=== PATIENT | male | born 1940 | race Caucasian/White ===

== ENCOUNTER 2016-04-05 14:31 | Inpatient (IN) ==
[2016-04-05] MEDS ORDERED: Ondansetron 4 MG/2 ML VIAL IVP ONE (14:47)
[2016-04-05] MEDS ORDERED: 0.9 % Sodium Chloride 1,000 ML IVC ONE (14:47)
[2016-04-05] MEDS ORDERED: *HR* HYDROmorphone (PF) 1 MG/ML SYRINGE IVP ONE (14:47)
[2016-04-05] MEDS ORDERED: Ipratropium/Albuterol Neb 3 ML IH ONE (14:48)
--- NOTE | 2016-04-05 14:58 | Emergency Department Note ---
Disposition Clinical Impression: Status post hernia repair, Inadequate pain control, Elevated troponin Disposition: Admitted As Inpatient Condition: Good General Adult HPI - General Chief complaint: ED Urogenital-Male Stated complaint: scrotal swelling Time Seen by Provider: 04/05/16 14:45 Source: patient, EMS Limitations: no limitations - History of Present Illness Pain Scale: 9 - Related Data Home Medications Medication Instructions Recorded Confirmed GlyBURIDE 5 mg PO BID 02/10/15 04/06/16 Isosorbide MONOnitrate (24 HR) 30 mg PO DAILY 02/10/15 04/06/16 [Imdur] Levothyroxine [Synthroid] 88 mcg PO DAILY 02/10/15 04/06/16 Docusate Sodium [Dok] 100 mg PO BID PRN 11/02/15 04/06/16 Insulin Glargine,Hum.rec.anlog 0 - 40 unit SQ HS PRN 11/02/15 04/06/16 [Lantus Solostar] Gabapentin [Neurontin] 300 mg PO TID PRN 01/21/16 04/06/16 Pravastatin Sodium 10 mg PO HS 01/21/16 04/06/16 Carvedilol 12.5 mg PO BID 03/31/16 04/06/16 Furosemide [Lasix] 20 mg PO QAM 03/31/16 04/06/16 OxyCODONE/APAP 5/325 [Percocet 1 tab PO Q6HR PRN 04/05/16 04/06/16 5/325 MG] Allergies Allergy/AdvReac Type Severity Reaction Status Date / Time [id number]-[id number]-Zsq Reductase AdvReac Muscle Pain Verified 03/31/16 12:55 Inhibitor [Statins] Past Medical History - Past Medical History Medical history: Reports: atrial fibrillation, cancer, CHF, CVA, diabetes, hyperlipidemia, hypertension, myocardial infarction, renal disease, other Surgical history: Reports: coronary bypass (CABG), other, pacemaker Psychiatric history: Reports: no psych history - Social History Smoking Status: Former smoker Smokeless Tobacco Status: No Alcohol use: Reports: none Drug use: Reports: none Physical Exam - General Limitations: no limitations General appearance: alert Course - Reevaluation(s) Reevaluation #1: I saw the patient with resident, Dr. Dominique. Patient presented with a complaint of scrotal swelling. He is several days post laparoscopic herniorrhaphy. He says he started feeling bad as soon as he went home night. On examination his incisions look fine but there is a lot of ecchymosis on the abdominal wall. There is significant ecchymosis to the right flank extending up into the lower thorax. Scrotum is definitely swollen and has ecchymosis to it. The patient has a Luna catheter in place and there is urine draining into the bag. His belly is tender on the right side where the hematoma is but he is not tender to deep palpation of the abdomen on the left hand side. Afebrile on arrival. This may be postoperative hematoma and nothing more. However will have to Be concerned about ongoing bleeding or a more significant type of hematoma in the retroperitoneum. We are checking labs and we will do a CAT scan of the belly and pelvis. Disposition will be based on diagnostic results and reevaluation. Time: 14:58 Vital Signs Temperature 97.7 F 04/05/16 14:34 Pulse Rate 60 04/05/16 14:34 Respiratory Rate 16 04/05/16 14:34 Blood Pressure 136/67 04/05/16 14:34 O2 Sat by Pulse Oximetry 100 04/05/16 14:34 Temperature 98.4 F 04/06/16 07:34 Pulse Rate 60 04/06/16 11:27 Respiratory Rate 18 04/06/16 11:27 Blood Pressure 108/56 04/06/16 11:27 O2 Sat by Pulse Oximetry 100 04/06/16 07:34 Oxygen Delivery Oxygen Delivery Nasal Cannula Medical Decision Making - Lab Data Result diagrams: 04/06/16 05:33 04/06/16 05:33 Lab Results 04/05/16 04/05/16 04/05/16 Range/Units 15:02 15:02 15:02 WBC 6.3 (4.3-11.1) K/mcL RBC 3.41 L (4.19-5.50) M/mcL Hgb 9.5 L (12.9-16.9) g/dL Hct 29.2 L (37.5-50.1) % MCV 85.6 (83.0-100.0) fL MCH 27.9 L (28.0-33.3) pg MCHC 32.5 (31.6-35.5) g/dL RDW 13.2 (11.5-14.5) % Plt Count 109 L (140-400) K/mcL MPV 8.9 L (9.4-12.4) fL Immature Gran % 1.1 (0-4) % Seg Neutrophils % 75.7 % Lymphocytes % 10.5 % Monocytes % 9.7 % Eosinophils % 2.5 % Basophils % 0.5 % Neutrophils # 4.8 (1.6-8.9) K/mcL Lymphocytes # 0.7 (0.6-4.6) K/mcL Monocytes # 0.6 (0.0-1.3) K/mcL Eosinophils # 0.2 (0.0-0.6) K/mcL Basophils # 0.0 (0.0-0.2) K/mcL Immature Plt Fraction 1.0 L (1.1-6.1) % PT (9.4-12.1) Seconds INR APTT (26.0-36.0) Seconds Sodium 133 L (136-145) mEq/L Potassium 3.6 (3.5-4.5) mEq/L Chloride 102 (98-109) mEq/L Carbon Dioxide 14 L (19-29) mEq/L BUN 99 H (8-26) mg/dL Creatinine 2.62 H (0.72-1.25) mg/dL Est GFR ( Amer) 29 L (> 60) Est GFR (Non-Af Amer) 24 L (> 60) BUN/Creatinine Ratio 38 H (6-26) Glucose 91 (70-99) mg/dL POC Glucose (58-89) Calculated Osmolality 306 H (280-300) Calcium 8.5 L (8.6-10.8) mg/dL Total Bilirubin 2.0 H (0.2-1.2) mg/dL Direct Bilirubin 1.1 H (0.0-0.5) mg/dL Indirect Bilirubin 0.9 (0.0-1.2) mg/dL AST 20 (5-34) Units/L ALT < 6 (0-55) Units/L Alkaline Phosphatase 160 H (38-126) Units/L Troponin I 0.11 H* (0-0.03) ng/mL Serum Total Protein 6.5 (6.0-8.3) g/dL Albumin 3.3 L (3.5-5.0) g/dL Globulin 3.2 (2.4-3.5) g/dL Albumin/Globulin Ratio 1.0 L (1.1-2.2) Lipase 27 (8-78) Units/L Urine Color (Yellow) Urine Clarity (Clear) Urine pH (5.0-8.0) pH Units Ur Specific [place] (1.010-1.025) Urine Protein (Neg-Trace) mg/dL Urine Glucose (UA) (Normal) mg/dL Urine Ketones (Negative) mg/dL Urine Blood (Negative) Urine Nitrite (Negative) Urine Bilirubin (Negative) Urine Urobilinogen (Normal) mg/dL Ur Leukocyte Esterase (Negative) Urine Microscopic RBC (0-3) per hpf Urine Microscopic WBC (0-3) per hpf Ur Squamous Epith Cells (None-Few) per lpf Amorphous Sediment (Few) Urine Bacteria (None-Few) per hpf Hyaline Casts (None-Few) per lpf Granular Casts (None Seen) per lpf Urine Yeast Ur Culture Indicated? (NO) 04/05/16 04/05/16 04/06/16 Range/Units 20:52 22:13 05:13 WBC (4.3-11.1) K/mcL RBC (4.19-5.50) M/mcL Hgb (12.9-16.9) g/dL Hct (37.5-50.1) % MCV (83.0-100.0) fL MCH (28.0-33.3) pg MCHC (31.6-35.5) g/dL RDW (11.5-14.5) % Plt Count (140-400) K/mcL MPV (9.4-12.4) fL Immature Gran % (0-4) % Seg Neutrophils % % Lymphocytes % % Monocytes % % Eosinophils % % Basophils % % Neutrophils # (1.6-8.9) K/mcL Lymphocytes # (0.6-4.6) K/mcL Monocytes # (0.0-1.3) K/mcL Eosinophils # (0.0-0.6) K/mcL Basophils # (0.0-0.2) K/mcL Immature Plt Fraction (1.1-6.1) % PT (9.4-12.1) Seconds INR APTT (26.0-36.0) Seconds Sodium (136-145) mEq/L Potassium (3.5-4.5) mEq/L Chloride (98-109) mEq/L Carbon Dioxide (19-29) mEq/L BUN (8-26) mg/dL Creatinine (0.72-1.25) mg/dL Est GFR ( Amer) (> 60) Est GFR (Non-Af Amer) (> 60) BUN/Creatinine Ratio (6-26) Glucose (70-99) mg/dL POC Glucose 100 H 73 (58-89) Calculated Osmolality (280-300) Calcium (8.6-10.8) mg/dL Total Bilirubin (0.2-1.2) mg/dL Direct Bilirubin (0.0-0.5) mg/dL Indirect Bilirubin (0.0-1.2) mg/dL AST (5-34) Units/L ALT (0-55) Units/L Alkaline Phosphatase (38-126) Units/L Troponin I 0.13 H* (0-0.03) ng/mL Serum Total Protein (6.0-8.3) g/dL Albumin (3.5-5.0) g/dL Globulin (2.4-3.5) g/dL Albumin/Globulin Ratio (1.1-2.2) Lipase (8-78) Units/L Urine Color (Yellow) Urine Clarity (Clear) Urine pH (5.0-8.0) pH Units Ur Specific [place] (1.010-1.025) Urine Protein (Neg-Trace) mg/dL Urine Glucose (UA) (Normal) mg/dL Urine Ketones (Negative) mg/dL Urine Blood (Negative) Urine Nitrite (Negative) Urine Bilirubin (Negative) Urine Urobilinogen (Normal) mg/dL Ur Leukocyte Esterase (Negative) Urine Microscopic RBC (0-3) per hpf Urine Microscopic WBC (0-3) per hpf Ur Squamous Epith Cells (None-Few) per lpf Amorphous Sediment (Few) Urine Bacteria (None-Few) per hpf Hyaline Casts (None-Few) per lpf Granular Casts (None Seen) per lpf Urine Yeast Ur Culture Indicated? (NO) 04/06/16 04/06/16 04/06/16 Range/Units 05:20 05:33 05:33 WBC 4.2 L (4.3-11.1) K/mcL RBC 2.93 L (4.19-5.50) M/mcL Hgb 8.2 L (12.9-16.9) g/dL Hct 25.7 L (37.5-50.1) % MCV 87.7 (83.0-100.0) fL MCH 28.0 (28.0-33.3) pg MCHC 31.9 (31.6-35.5) g/dL RDW 13.2 (11.5-14.5) % Plt Count 95 L (140-400) K/mcL MPV 8.8 L (9.4-12.4) fL Immature Gran % 0.7 (0-4) % Seg Neutrophils % 70.5 % Lymphocytes % 12.9 % Monocytes % 10.6 % Eosinophils % 4.8 % Basophils % 0.5 % Neutrophils # 3.0 (1.6-8.9) K/mcL Lymphocytes # 0.5 L (0.6-4.6) K/mcL Monocytes # 0.5 (0.0-1.3) K/mcL Eosinophils # 0.2 (0.0-0.6) K/mcL Basophils # 0.0 (0.0-0.2) K/mcL Immature Plt Fraction 0.8 L (1.1-6.1) % PT (9.4-12.1) Seconds INR APTT (26.0-36.0) Seconds Sodium (136-145) mEq/L Potassium (3.5-4.5) mEq/L Chloride (98-109) mEq/L Carbon Dioxide (19-29) mEq/L BUN (8-26) mg/dL Creatinine (0.72-1.25) mg/dL Est GFR ( Amer) (> 60) Est GFR (Non-Af Amer) (> 60) BUN/Creatinine Ratio (6-26) Glucose (70-99) mg/dL POC Glucose (58-89) Calculated Osmolality (280-300) Calcium (8.6-10.8) mg/dL Total Bilirubin (0.2-1.2) mg/dL Direct Bilirubin (0.0-0.5) mg/dL Indirect Bilirubin (0.0-1.2) mg/dL AST (5-34) Units/L ALT (0-55) Units/L Alkaline Phosphatase (38-126) Units/L Troponin I 0.14 H* (0-0.03) ng/mL Serum Total Protein (6.0-8.3) g/dL Albumin (3.5-5.0) g/dL Globulin (2.4-3.5) g/dL Albumin/Globulin Ratio (1.1-2.2) Lipase (8-78) Units/L Urine Color Yellow (Yellow) Urine Clarity Cloudy A (Clear) Urine pH 5.0 (5.0-8.0) pH Units Ur Specific [place] 1.013 (1.010-1.025) Urine Protein Trace (Neg-Trace) mg/dL Urine Glucose (UA) Normal (Normal) mg/dL Urine Ketones Negative (Negative) mg/dL Urine Blood Trace H (Negative) Urine Nitrite Negative (Negative) Urine Bilirubin Negative (Negative) Urine Urobilinogen Normal (Normal) mg/dL Ur Leukocyte Esterase Negative (Negative) Urine Microscopic RBC 0-3 (0-3) per hpf Urine Microscopic WBC 0-3 (0-3) per hpf Ur Squamous Epith Cells Many H (None-Few) per lpf Amorphous Sediment Few (Few) Urine Bacteria Few (None-Few) per hpf Hyaline Casts Few (None-Few) per lpf Granular Casts Few H (None Seen) per lpf Urine Yeast Test Not Performed Ur Culture Indicated? NO (NO) 04/06/16 04/06/16 Range/Units 05:33 05:33 WBC (4.3-11.1) K/mcL RBC (4.19-5.50) M/mcL Hgb (12.9-16.9) g/dL Hct (37.5-50.1) % MCV (83.0-100.0) fL MCH (28.0-33.3) pg MCHC (31.6-35.5) g/dL RDW (11.5-14.5) % Plt Count (140-400) K/mcL MPV (9.4-12.4) fL Immature Gran % (0-4) % Seg Neutrophils % % Lymphocytes % % Monocytes % % Eosinophils % % Basophils % % Neutrophils # (1.6-8.9) K/mcL Lymphocytes # (0.6-4.6) K/mcL Monocytes # (0.0-1.3) K/mcL Eosinophils # (0.0-0.6) K/mcL Basophils # (0.0-0.2) K/mcL Immature Plt Fraction (1.1-6.1) % PT 15.1 H (9.4-12.1) Seconds INR 1.4 APTT 27.4 (26.0-36.0) Seconds Sodium 135 L (136-145) mEq/L Potassium 3.5 (3.5-4.5) mEq/L Chloride 107 (98-109) mEq/L Carbon Dioxide 15 L (19-29) mEq/L BUN 96 H (8-26) mg/dL Creatinine 2.32 H (0.72-1.25) mg/dL Est GFR ( Amer) 34 L (> 60) Est GFR (Non-Af Amer) 28 L (> 60) BUN/Creatinine Ratio 41 H (6-26) Glucose 69 L (70-99) mg/dL POC Glucose (58-89) Calculated Osmolality 308 H (280-300) Calcium 8.5 L (8.6-10.8) mg/dL Total Bilirubin (0.2-1.2) mg/dL Direct Bilirubin (0.0-0.5) mg/dL Indirect Bilirubin (0.0-1.2) mg/dL AST (5-34) Units/L ALT (0-55) Units/L Alkaline Phosphatase (38-126) Units/L Troponin I (0-0.03) ng/mL Serum Total Protein (6.0-8.3) g/dL Albumin (3.5-5.0) g/dL Globulin (2.4-3.5) g/dL Albumin/Globulin Ratio (1.1-2.2) Lipase (8-78) Units/L Urine Color (Yellow) Urine Clarity (Clear) Urine pH (5.0-8.0) pH Units Ur Specific [place] (1.010-1.025) Urine Protein (Neg-Trace) mg/dL Urine Glucose (UA) (Normal) mg/dL Urine Ketones (Negative) mg/dL Urine Blood (Negative) Urine Nitrite (Negative) Urine Bilirubin (Negative) Urine Urobilinogen (Normal) mg/dL Ur Leukocyte Esterase (Negative) Urine Microscopic RBC (0-3) per hpf Urine Microscopic WBC (0-3) per hpf Ur Squamous Epith Cells (None-Few) per lpf Amorphous Sediment (Few) Urine Bacteria (None-Few) per hpf Hyaline Casts (None-Few) per lpf Granular Casts (None Seen) per lpf Urine Yeast Ur Culture Indicated? (NO) Attestation Statement - Attestation Attestation: I, Dr. Lee, examined this patient [id number] and my medical decision- making was reviewed with Dr. Dominique, Resident Physician. I agree with the documented findings, disposition and treatment plan as described except to the extent set forth below. Please see my progress notes for details.
[2016-04-05 15:12] LABS: Basophils % 0.5 %; Hematocrit 29.2 % (37.5-50.1)
[2016-04-05 15:13] LABS: Eosinophils # 0.2 K/mcL (0.0-0.6); Eosinophils % 2.5 %; Hemoglobin 9.5 g/dL (12.9-16.9); Immature Granulocytes % 1.1 % (0-4); Lymphocytes # 0.7 K/mcL (0.6-4.6); Lymphocytes % 10.5 %; Mean Corpuscular HGB Conc 32.5 g/dL (31.6-35.5); Mean Corpuscular Hemoglobin 27.9 pg (28.0-33.3); Mean Corpuscular Volume 85.6 fL (83.0-100.0); Mean Platelet Volume 8.9 fL (9.4-12.4); Monocytes # 0.6 K/mcL (0.0-1.3); Monocytes % 9.7 %; Neutrophils # 4.8 K/mcL (1.6-8.9); Platelet Count 109 K/mcL (140-400); Red Blood Count 3.41 M/mcL (4.19-5.50); Red Cell Distribution Width 13.2 % (11.5-14.5); Segmented Neutrophils % 75.7 %
[2016-04-05 15:27] LABS: Albumin 3.3 g/dL (3.5-5.0); Alkaline Phosphatase 160 Units/L (38-126); Aspartate Amino Transferase 20 Units/L (5-34); BUN/Creatinine Ratio 38 (6-26); Bilirubin,Direct 1.1 mg/dL (0.0-0.5); Bilirubin,Indirect 0.9 mg/dL (0.0-1.2); Blood Urea Nitrogen 99 mg/dL (8-26); Calcium 8.5 mg/dL (8.6-10.8); Carbon Dioxide 14 mEq/L (19-29); Chloride 102 mEq/L (98-109); Globulin 3.2 g/dL (2.4-3.5); Glucose 91 mg/dL (70-99); Lipase 27 Units/L (8-78); Osmolality,Calculated 306 (280-300); Potassium 3.6 mEq/L (3.5-4.5); Sodium 133 mEq/L (136-145); Total Protein 6.5 g/dL (6.0-8.3); eGFR For African Americans 29 (> 60); eGFR For Non-African Americans 24 (> 60)
[2016-04-05 15:39] LABS: Alanine Aminotransferase < 6 Units/L (0-55)
--- NOTE | 2016-04-05 17:25 | Emergency Department Note ---
Disposition Clinical Impression: Status post hernia repair, Inadequate pain control, Elevated troponin Disposition: Admitted As Inpatient Condition: Good Forms: ED Satisfaction Letter General Adult HPI - General Chief complaint: ED Urogenital-Male Stated complaint: scrotal swelling Time Seen by Provider: 04/05/16 14:45 Source: patient, EMS Limitations: no limitations Nursing Notes Reviewed: Yes Vital Signs Reviewed: Yes - History of Present Illness HPI Narrative: Patient here for evaluation of abdominal pain which developed into chest pain upon arrival. Patient is postop from hernia repair done by Dr. Williamson on . Patient was discharged later in the day. Patient has been at home recovering with his helping to take care of him. Patient has had continued swelling of the abdomen and scrotum. Associated ecchymosis. States today the pain got so severe that she needed to come to the hospital. Upon arrival the patient is in significant pain with significant tenderness of the abdomen as well as ecchymosis along the entire right flank. Patient's overall history is limited secondary to ability to communicate secondary to age. Patient with mild wheezing at the left base of the lung. Abdomen with appropriate hearing scars significant ecchymosis to the right flank. No overt sign of infection. Scrotal swelling noted with tenderness to palpation. Pt will recieve blood work and CT scan to evaluate for bleeding and infection. Pain Scale: 0 - Related Data Home Medications Medication Instructions Recorded Confirmed GlyBURIDE 5 mg PO BID 02/10/15 03/31/16 Isosorbide MONOnitrate (24 HR) 30 mg PO DAILY 02/10/15 03/31/16 [Imdur] Levothyroxine [Synthroid] 88 mcg PO DAILY 02/10/15 03/31/16 Docusate Sodium [Dok] 100 mg PO BID PRN 11/02/15 03/31/16 Insulin Glargine,Hum.rec.anlog 40 unit SQ HS 11/02/15 03/31/16 [Lantus Solostar] Gabapentin [Neurontin] 300 mg PO TID PRN 01/21/16 03/31/16 Pravastatin Sodium 10 mg PO HS 01/21/16 03/31/16 Carvedilol 12.5 mg PO BID 03/31/16 03/31/16 Furosemide [Lasix] 20 mg PO QAM 03/31/16 03/31/16 Previous Rx's Medication Instructions Recorded OxyCODONE/APAP 5/325 [Percocet 1 each PO Q6HR PRN #30 tablet 03/31/16 5/325 MG] Allergies Allergy/AdvReac Type Severity Reaction Status Date / Time [id number] Reductase AdvReac Muscle Pain Verified 03/31/16 12:55 Inhibitor [Statins] All systems ED: reviewed and negative except as stated. Constitutional: Denies: fever, chills Cardiovascular: Reports: chest pain Respiratory: Denies: cough, dyspnea, wheezes Gastrointestinal: Reports: abdominal pain, nausea. Denies: vomiting, diarrhea Genitourinary: Denies: urgency Integumentary: Denies: rash Neurological: Denies: headache Endocrine: Denies: fatigue Past Medical History - Past Medical History Medical history: Reports: atrial fibrillation, cancer, CHF, CVA, diabetes, hyperlipidemia, hypertension, myocardial infarction, renal disease, other Surgical history: Reports: coronary bypass (CABG), other, pacemaker Psychiatric history: Reports: no psych history - Social History Smoking Status: Former smoker Smokeless Tobacco Status: No Alcohol use: Reports: none Drug use: Reports: none Physical Exam - General Limitations: no limitations General appearance: alert - Head Head exam: atraumatic, normocephalic - Eye Eye exam: Present: normal appearance - ENT ENT exam: normal exam, normal oropharynx - Neck Neck exam: Present: normal inspection, full ROM - Chest Chest inspection: Present: normal inspection, symmetric chest wall rise. Absent : tenderness - Respiratory Respiratory exam: Present: normal lung sounds bilaterally, wheezes (left lung base). Absent: respiratory distress - Cardiovascular Cardiovascular exam: Present: regular rate, normal rhythm - Abdominal Exam Abdominal exam: Present: tenderness Abdominal tenderness: Present: diffuse (worse on the right) - Male exam: Present: scrotal swelling, other (ecchymosis) - Extremities Exam Extremities exam: Present: normal inspection, pedal edema Course - Reevaluation(s) Reevaluation #1: Pt with concern for abcess vs phlegmon vs normal healing; will discuss with surgery. CKD chronically elevated. Elevated troponin 2x baseline. Will need to be trended. - Consultations Consultation #1: Discussed with Dr. Williamson. In light of normal WBC, unlikely infection. Will see patient in hospital in am if admitted for troponin. Consultation #2: Discussed with Cassie Carr. Pt Accepted for admission. Vital Signs Temperature 97.7 F 04/05/16 14:34 Pulse Rate 60 04/05/16 14:34 Respiratory Rate 16 04/05/16 14:34 Blood Pressure 136/67 04/05/16 14:34 O2 Sat by Pulse Oximetry 100 04/05/16 14:34 Temperature 97.7 F 04/05/16 14:34 Pulse Rate 60 04/05/16 16:46 Respiratory Rate 18 04/05/16 16:46 Blood Pressure 123/67 04/05/16 16:46 O2 Sat by Pulse Oximetry 100 04/05/16 16:46 Oxygen Delivery Oxygen Delivery Nasal Cannula Medical Decision Making - Medical Records Medical records reviewed: Yes I reviewed the patient's medical records. - Lab Data Lab results reviewed: Yes I reviewed the patient's lab results. Result diagrams: 04/05/16 15:02 04/05/16 15:02 Lab Results 04/05/16 04/05/16 04/05/16 Range/Units 15:02 15:02 15:02 WBC 6.3 (4.3-11.1) K/mcL RBC 3.41 L (4.19-5.50) M/mcL Hgb 9.5 L (12.9-16.9) g/dL Hct 29.2 L (37.5-50.1) % MCV 85.6 (83.0-100.0) fL MCH 27.9 L (28.0-33.3) pg MCHC 32.5 (31.6-35.5) g/dL RDW 13.2 (11.5-14.5) % Plt Count 109 L (140-400) K/mcL MPV 8.9 L (9.4-12.4) fL Immature Gran % 1.1 (0-4) % Seg Neutrophils % 75.7 % Lymphocytes % 10.5 % Monocytes % 9.7 % Eosinophils % 2.5 % Basophils % 0.5 % Neutrophils # 4.8 (1.6-8.9) K/mcL Lymphocytes # 0.7 (0.6-4.6) K/mcL Monocytes # 0.6 (0.0-1.3) K/mcL Eosinophils # 0.2 (0.0-0.6) K/mcL Basophils # 0.0 (0.0-0.2) K/mcL Immature Plt Fraction 1.0 L (1.1-6.1) % Sodium 133 L (136-145) mEq/L Potassium 3.6 (3.5-4.5) mEq/L Chloride 102 (98-109) mEq/L Carbon Dioxide 14 L (19-29) mEq/L BUN 99 H (8-26) mg/dL Creatinine 2.62 H (0.72-1.25) mg/dL Est GFR ( Amer) 29 L (> 60) Est GFR (Non-Af Amer) 24 L (> 60) BUN/Creatinine Ratio 38 H (6-26) Glucose 91 (70-99) mg/dL Calculated Osmolality 306 H (280-300) Calcium 8.5 L (8.6-10.8) mg/dL Total Bilirubin 2.0 H (0.2-1.2) mg/dL Direct Bilirubin 1.1 H (0.0-0.5) mg/dL Indirect Bilirubin 0.9 (0.0-1.2) mg/dL AST 20 (5-34) Units/L ALT < 6 (0-55) Units/L Alkaline Phosphatase 160 H (38-126) Units/L Troponin I 0.11 H* (0-0.03) ng/mL Serum Total Protein 6.5 (6.0-8.3) g/dL Albumin 3.3 L (3.5-5.0) g/dL Globulin 3.2 (2.4-3.5) g/dL Albumin/Globulin Ratio 1.0 L (1.1-2.2) Lipase 27 (8-78) Units/L - Radiology Data Radiology results reviewed: Yes I reviewed the patient's radiology results. - EKG Data EKG #1 EKG attestation: Yes I reviewed and interpreted this EKG. EKG results narrative: Ventricularly paced rhythm 60 bmp; unchanged form 10/2015; Does not meet S[place] criteria. No significant elevation or depression.
[2016-04-05] MEDS ORDERED: Aspirin 81 MG TAB.CHEW PO ONE (17:32)
[2016-04-05] MEDS ORDERED: Naloxone 0.4 MG/ML INJ IVP PRN (21:07)
[2016-04-05] MEDS ORDERED: *HR* HYDROmorphone (PF) 1 MG/ML SYRINGE IVP PRN (21:07)
[2016-04-05] MEDS ORDERED: *HR* HYDROcodone/Acet 5/325 mg TABLET PO ONE (21:11)
[2016-04-05] MEDS ORDERED: *HR* Morphine 2 MG/ML SYRINGE IVP ONE (21:53)
[2016-04-05] MEDS ORDERED: *HR* Dextrose 50 % in Water (Syg) 50 ML SYRINGE IVP PRN (22:05)
[2016-04-05] MEDS ORDERED: D5% in Water 1,000 ML IV PRN (22:05)
[2016-04-05] MEDS ORDERED: Dextrose Gel 15 GM PO PRN ×2 (22:05)
--- NOTE | 2016-04-05 22:14 | Internal Med History&Physical ---
Date of Encounter: 04/05/16 Time of Encounter: 22:18 Assessment and Plan (1) Elevated troponin Current visit: Yes Status: Acute Patient has chronically elevated troponin baseline about 0.05. He reported some chest pain in the emergency department that is now resolved. Troponin was 0.11, up from his baseline is 0.05. EKG showed no acute changes. 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 IVP Dilaudid when necessary for pain Narcan when necessary for respiratory depression (3) Status post hernia repair Current visit: Yes Status: Acute Patient had a right inguinal hernia repair by Dr. Gibson on . He is having increased swelling and pain in scrotum pelvis ecchymosis to his right flank. CT scan of the abdomen and pelvis showed soft tissue gas in the right inguinal region and adjacent subcutaneous fat stranding compatible with given history of recent right inguinal hernia repair, additionally there is a 6.9 X 6.3 x 5.9 cm heterogeneous collection in the right anterior pelvis near the opening of the inguinal canal that contains both fluid and fat density. Dr. Gibson was contacted by the emergency department and does not feel that this is an infection given patient's normal white count of 6.3. He will see the patient in the morning. Ultrasound of the scrotum ordered. 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 Patient's surgeon, Dr. Williamson consulted, and will see the patient in the morning. Elevate scrotum. Morphine IV push when necessary for pain. Ultrasound of scrotum ordered (6) Chronic kidney disease Current visit: Yes Status: Acute Patient with CKD, creatinine is at baseline of 2.62, BUN elevated. Will give gentle fluids 0.9NS at 75mL/hr recheck chemistry in the morning. Qualifiers: Chronic kidney disease stage: stage 4 (severe) Qualified Code(s): N18.4 - Chronic kidney disease, stage 4 (severe) (7) DVT prophylaxis Current visit: Yes Status: Acute Up to chair twice a day Antiembolic stockings Patient with thrombocytopenia with Plt of 109, will not give pharmacologic prophylaxis. Internal Medicine - H&P: HPI Chief complaint: surgical pain, chest pain Admitted From: Emergency Dept Plans for Post Hospital Care: Home History of present illness: Mr. Frye is a 75 year old male with hypertension, hyperlipidemia, diabetes, CHF, coronary artery disease status post CABG, atrial fibrillation, pacemaker/ AICD, chronic kidney disease, CHF, who recently had a right inguinal hernia repair by Dr. Williamson and presented to the emergency department for increased swelling and bruising and pain in the scrotum and abdomen. Patient's surgery was on and was done as an outpatient. Since his surgery he has had increasing swelling of the scrotum increasing swelling of the lower abdomen and bruising in the scrotum and right flank. His pain is uncontrolled. He reports he has been passing gas and having regular bowel movements, however he has not had an appetite and not eaten much since the surgery. Evaluation in the emergency department included a CT of the abdomen and pelvis which showed soft tissue gas in the right inguinal region and adjacent subcutaneous fat stranding consistent with history of right inguinal hernia repair, additionally there is a 6.9 X 6.3 x 5.9 cm heterogeneous collection in the right anterior pelvis near the opening of the inguinal canal that contains both fluid and fat density. CT also demonstrated cirrhosis with portal hypertension and a small volume of abdominal ascites. Dr. Williamson was called by the emergency department physician he is not concern for abscess given the patient's normal white blood cell count and will see the patient tomorrow. Patient's creatinine was 2.62 which is consistent with his baseline chronic kidney disease. Patient's troponin was elevated at 0.11. He has chronically elevated troponin, but this is up from his baseline of 0.05. On exam, patient appears uncomfortable, he is alert and oriented, and answers questions appropriately. His abdomen is soft, but tender. He has laparoscopic surgical scars that appear to be healing appropriately. He has significant ecchymosis all along his right flank from hip to shoulder blade. He is tender to the right flank. His scrotum is severely swollen, dark purple in color and very tender to palpation. Past Med Surg Social Fam HX - Past Medical History Medical history: atrial fibrillation, cancer, CHF, CVA, diabetes, hyperlipidemia , hypertension, myocardial infarction, renal disease Psychiatric history: no psych history - Past Surgical History Surgical History: cancer surgery, coronary bypass (CABG), pacemaker - Social History Smoking Status: Never smoker Smokeless Tobacco Status: No Alcohol use: none Drug use: none - Family History Father History Unknown: Yes Living Status: Internal Medicine - H&P: Meds GlyBURIDE 5 mg PO BID 02/10/15 [History] Isosorbide MONOnitrate (24 HR) [Imdur] 30 mg PO DAILY 02/10/15 [History] Levothyroxine [Synthroid] 88 mcg PO DAILY 02/10/15 [History] Docusate Sodium [Dok] 100 mg PO BID PRN 11/02/15 [History] Insulin Glargine,Hum.rec.anlog [Lantus Solostar] 11/02/15 [History] Gabapentin [Neurontin] 300 mg PO TID PRN 01/21/16 [History] Pravastatin Sodium 10 mg PO HS 01/21/16 [History] Carvedilol 12.5 mg PO BID 03/31/16 [History] Furosemide [Lasix] 20 mg PO QAM 03/31/16 [History] OxyCODONE/APAP 5/325 [Percocet 5/325 MG] 1 tab PO Q6HR PRN 04/05/16 [History] Allergies Snqqnpd-Txi-Wps Reductase Inhibitor [Statins] Adverse Reaction (Verified 12:55) Muscle Pain All Systems PM: A 10-system review of systems was performed and is negative for pertinent findings except as documented above in the HPI. - Constitutional Constitutional: anorexia, no chills, no fever(s), no night sweats - EENT Eyes: no change in vision, no discharge, no pain, no photophobia Ears: no ear discharge, no ear pain, no tinnitus Nose, mouth and throat: no dysphagia, no nasal discharge, no neck pain, no sore throat - Cardiovascular Cardiovascular ROS IM: chest pain, no diaphoresis, no dyspnea, no lightheadedness, no palpitations, no syncope - Respiratory Respiratory: no cough, no dyspnea, no wheezing, no excessive phlegm production - Gastrointestinal Gastrointestinal: abdominal pain, no diarrhea, no hematemesis, no hematochezia, no melena, no nausea, no vomiting - Genitourinary Genitourinary ROS male: genital pain, scrotal swelling, testicular pain - Musculoskeletal Musculoskeletal ROS IM: no numbness, no tingling - Integumentary Integumentary IM: no rash, no unusual bruising - Neurological Neurological ROS: no confusion, no convulsions, no focal weakness, no numbness, no tingling, no tremor(s) - Hematologic/Lymphatic Hematologic/Lymphatic: no easy bruising - Constitutional Vitals: Temp Pulse Resp BP Pulse Ox 98.4 F 74 22 111/60 100 04/05/16 21:10 04/05/16 21:10 04/05/16 21:10 04/05/16 21:10 04/05/16 21:10 General appearance: Present: mild distress, A&O X 3 - Head Head exam: Present: atraumatic, normocephalic - Eye Eye exam: Present: PERRL, conjuntiva pink, sclera anicteric Pupils: Present: PERRL - Neck Neck exam general surgery: Present: supple, trachea midline. Absent: lymphadenopathy - Respiratory Respiratory exam: Present: CTAB. Absent: accessory muscle use, rales, rhonchi, wheezes - Cardiovascular Cardiovascular exam: Present: RRR, +S1, +S2. Absent: diastolic murmur, gallop, rubs, systolic murmur - GI/Abdominal GI/Abdominal exam: Present: distended, normal bowel sounds, soft, tenderness ( diffuse), no peritoneal signs - exam: Present: scrotal swelling, testicular tenderness External exam: Present: ecchymosis - Extremities Exam Extremities exam: Present: warm, radial pulses palpable and symetrical. Absent : calf tenderness, cyanotic, pedal edema - Neurological Exam Neurological exam: Present: CN II-XII intact, oriented X3, no focal deficits. Absent: facial droop, speech deficit - Skin Skin exam: Present: dry, intact Additional comments: ecchymosis to right flank Internal Med - H&P Results - Labs CBC & Chem 7: 04/05/16 15:02 04/05/16 15:02 Labs: All Lab Results (24 Hours) 04/05/16 04/05/16 04/05/16 Range/Units 15:02 15:02 15:02 WBC 6.3 (4.3-11.1) K/mcL RBC 3.41 L (4.19-5.50) M/mcL Hgb 9.5 L (12.9-16.9) g/dL Hct 29.2 L (37.5-50.1) % MCV 85.6 (83.0-100.0) fL MCH 27.9 L (28.0-33.3) pg MCHC 32.5 (31.6-35.5) g/dL RDW 13.2 (11.5-14.5) % Plt Count 109 L (140-400) K/mcL MPV 8.9 L (9.4-12.4) fL Immature Gran % 1.1 (0-4) % Seg Neutrophils % 75.7 % Lymphocytes % 10.5 % Monocytes % 9.7 % Eosinophils % 2.5 % Basophils % 0.5 % Neutrophils # 4.8 (1.6-8.9) K/mcL Lymphocytes # 0.7 (0.6-4.6) K/mcL Monocytes # 0.6 (0.0-1.3) K/mcL Eosinophils # 0.2 (0.0-0.6) K/mcL Basophils # 0.0 (0.0-0.2) K/mcL Immature Plt Fraction 1.0 L (1.1-6.1) % Sodium 133 L (136-145) mEq/L Potassium 3.6 (3.5-4.5) mEq/L Chloride 102 (98-109) mEq/L Carbon Dioxide 14 L (19-29) mEq/L BUN 99 H (8-26) mg/dL Creatinine 2.62 H (0.72-1.25) mg/dL Est GFR ( Amer) 29 L (> 60) Est GFR (Non-Af Amer) 24 L (> 60) BUN/Creatinine Ratio 38 H (6-26) Glucose 91 (70-99) mg/dL Calculated Osmolality 306 H (280-300) Calcium 8.5 L (8.6-10.8) mg/dL Total Bilirubin 2.0 H (0.2-1.2) mg/dL Direct Bilirubin 1.1 H (0.0-0.5) mg/dL Indirect Bilirubin 0.9 (0.0-1.2) mg/dL AST 20 (5-34) Units/L ALT < 6 (0-55) Units/L Alkaline Phosphatase 160 H (38-126) Units/L Troponin I 0.11 H* (0-0.03) ng/mL Serum Total Protein 6.5 (6.0-8.3) g/dL Albumin 3.3 L (3.5-5.0) g/dL Globulin 3.2 (2.4-3.5) g/dL Albumin/Globulin Ratio 1.0 L (1.1-2.2) Lipase 27 (8-78) Units/L
[2016-04-06] MEDS ORDERED: *HR* Morphine 2 MG/ML SYRINGE IVP PRN (00:14)
[2016-04-06] MEDS ORDERED: 0.9 % Sodium Chloride 1,000 ML IVC SCH (00:15)
[2016-04-06] MEDS: Insulin LISPRO 300 UNITS/3 ML VIAL SQ SCH ×5 (02:27→22:22)
--- NOTE | 2016-04-06 03:38 | Event Note ---
Date of Encounter: 04/06/16 Time of Encounter: 03:31 Patient seen and examined with nurse practitioner. Patient had laparoscopic inguinal hernia repair 4 days ago. After surgery patient was having bruising involving right-sided abdomen and back and scrotal swelling. He denies any pain and scrotum addressed and only complains of pain whenever he stands up or ambulates. It is also been complaining of diffuse abdominal pain. However he is moving his bowels daily and denies any vomiting. He has only been able to tolerate clear liquids the past few days. He has chronic thrombocytopenia and has in fact received completely transfusion prior to surgery. He denies any trauma to his abdomen. He denies any hemochromatosis melena or hematochezia. He noted that he has been having increased shortness of breath since surgery in addition to productive cough of whitish sputum. He has been recording 2-4 L of oxygen since arrival to the emergency room. He denies any fever however mentioned that she was always cold. He is not on any antiplatelet or anticoagulant medications. Abdominal CT scan showed a fluid collection and right pelvis may be a seroma versus hematoma versus abscess. Patient is having also evidence of kidney injury. Patient will be started on gentle hydration. Monitor urine output. Scrotal ultrasound will be performe, suspect that this is a hydrocele. Patient will be kept empirically on Zosyn because of shortness of breath and sputum production after surgery and questionable infiltrate on the left base. Surgery team has been notified and will follow the patient. We will keep the patient on clear liquid diet for now. His platelet count as one specific count is 109,000, no indication transfusion now.
[2016-04-06] MEDS ORDERED: Piperacillin/Tazobactam 2.25 GM in D5% in Water (Mini-Bag+) 100 ML IVPB SCH (04:00)
[2016-04-06 05:33] LABS: Bilirubin,Urine Negative (Negative); Blood,Urine Trace (Negative); Clarity,Urine Cloudy (Clear); Color,Urine Yellow (Yellow); Glucose,Urine (UA) Normal (Normal); Ketones,Urine Negative (Negative); Leukocyte Esterase,Urine Negative (Negative); Nitrite,Urine Negative (Negative); Protein,Urine Trace mg/dL (Neg-Trace); Specific Gravity,Urine 1.013 (1.010-1.025); Urobilinogen,Urine Normal (Normal)
[2016-04-06 05:35] LABS: Squamous Epithelial Cell,Urine Many per lpf (None-Few)
[2016-04-06 05:44] LABS: Hematocrit 25.7 % (37.5-50.1); Hemoglobin 8.2 g/dL (12.9-16.9); Mean Corpuscular HGB Conc 31.9 g/dL (31.6-35.5); Mean Corpuscular Volume 87.7 fL (83.0-100.0); Red Blood Count 2.93 M/mcL (4.19-5.50); Red Cell Distribution Width 13.2 % (11.5-14.5)
[2016-04-06 05:46] LABS: RBC,Urine 0-3 per hpf (0-3); WBC,Urine 0-3 per hpf (0-3)
[2016-04-06 05:46] LABS: Basophils % 0.5 %; Eosinophils # 0.2 K/mcL (0.0-0.6); Eosinophils % 4.8 %; Immature Granulocytes % 0.7 % (0-4); Immature Platelets 0.8 % (1.1-6.1); Lymphocytes # 0.5 K/mcL (0.6-4.6); Lymphocytes % 12.9 %; Mean Platelet Volume 8.8 fL (9.4-12.4); Monocytes % 10.6 %; Segmented Neutrophils % 70.5 %
[2016-04-06 05:47] LABS: Amorphous Sediment,Urine Few (Few); Bacteria,Urine Few per hpf (None-Few); Granular Casts,Urine Few per lpf (None Seen); Hyaline Casts,Urine Few per lpf (None-Few)
[2016-04-06 05:51] LABS: INR 1.4; Prothrombin Time 15.1 Seconds (9.4-12.1)
[2016-04-06 05:54] LABS: Activated Partial Thrombo Time 27.4 Seconds (26.0-36.0)
[2016-04-06] MEDS ORDERED: Piperacillin/Tazobactam 3.375 GM in D5% in Water (Mini-Bag+) 100 ML IVPB SCH (06:00)
[2016-04-06 06:04] LABS: Calcium 8.5 mg/dL (8.6-10.8); Potassium 3.5 mEq/L (3.5-4.5)
[2016-04-06 06:06] LABS: Monocytes # 0.5 K/mcL (0.0-1.3); Platelet Count 95 K/mcL (140-400)
[2016-04-06] MEDS ORDERED: Pantoprazole 40 MG VIAL IVP SCH (06:30)
--- NOTE | 2016-04-06 12:07 | General Surgery Consult Note ---
Date of Encounter: 04/06/16 Time of Encounter: 11:30 Assessment and Plan (1) Status post hernia repair Current Visit: Yes Status: Acute Right flank hematoma noted- treat with supportive measures No surgical intervention indicated CT reviewed per Dr. Williamson Supportive care/pain control Advance to mechanical soft diet with diabetic modifications Wilson catheter to SD due to significant scrotal swelling (improving) PT/OT consult Repeat am labs (2) Urinary retention Current Visit: No Status: Resolved Continue wilson catheter to SD Dr. Dumont's office notified that patient is inpatient and that he will not be able to make his appointment today (3) Chronic kidney disease Current Visit: Yes Status: Chronic At baseline Management per medicine service IV fluids at 75ml/hour Qualifiers: Chronic kidney disease stage: stage 4 (severe) Qualified Code(s): N18.4 - Chronic kidney disease, stage 4 (severe) (4) Elevated troponin Current Visit: Yes Status: Acute Management per medicine service (5) Generalized weakness Current Visit: No Status: Acute PT/OT consult Consider rehabiitation at discharge (6) Thrombocytopenia Current Visit: Yes Status: Chronic Stable Management per medicine service (7) DVT prophylaxis Current Visit: Yes Status: Acute Anti-embolic stockings ordered for DVT prophylaxis No heparin due to thrombocytopenia and post-operative hematoma History of Present Illness Consult date: 04/06/16 Requesting physician: Patrizia Carr History of present illness: Mr. Frye is a very pleasant 75 year old male who is recently s/p a robotic assisted right inguinal hernia repair with Dr. Williamson on 03/31/16. He has a past medical history significant for type 2 diabetes mellitus, cancer of the kidney and subsequent removal, chronic kidney disease. He experienced urinary retention after his surgical procedure last week and did have a catheter placed per Dr. Dumont in urology on 04/01/16. His states that over the past few days he has been complaining of increasing abdominal discomfort. He is tolerating a diet without nausea/vomiting although he has a decreased appetite. He is moving his bowels regularly and denies any constipation or diarrhea. Denies any melena or hematochezia. He does have a large bruise to his right flank area. He admits to chest pain on admission which has now resolved. Troponin was mildly elevated at 0.11. He also admits to shortness of breath which seems to have improved since admission. Denies any fevers or chills. We have been asked to see and evaluate the patient for recommendations from a surgical standpoint. Past Med Surg Social Fam HX - Past Medical History Source: old records reviewed Medical history: atrial fibrillation, cancer (left kidney), CHF, CVA, diabetes ( Type 2), hyperlipidemia, hypertension, myocardial infarction, renal disease ( Followed per Dr. Oscar) Psychiatric history: no psych history - Past Surgical History Surgical History: cancer surgery (left nephrectomy- 2010), coronary bypass (CABG ), herniorrhaphy (Robotic assisted right inguinal hernia 03/31/16), pacemaker/ AICD (Pacemaker only), pacemaker - Social History Smoking Status: Never smoker Smokeless Tobacco Status: No Alcohol use: none Drug use: none Occupational status: retired Current living situation: Home - Independent Activity Level: Independent ambulation - Family History Father History Unknown: Yes Living Status: Medications and Allergies GlyBURIDE 5 mg PO BID 02/10/15 [History] Isosorbide MONOnitrate (24 HR) [Imdur] 30 mg PO DAILY 02/10/15 [History] Levothyroxine [Synthroid] 88 mcg PO DAILY 02/10/15 [History] Docusate Sodium [Dok] 100 mg PO BID PRN 11/02/15 [History] Insulin Glargine,Hum.rec.anlog [Lantus Solostar] 0 - 40 unit SQ HS PRN 11/02/15 [History] Gabapentin [Neurontin] 300 mg PO TID PRN 01/21/16 [History] Pravastatin Sodium 10 mg PO HS 01/21/16 [History] Carvedilol 12.5 mg PO BID 03/31/16 [History] Furosemide [Lasix] 20 mg PO QAM 03/31/16 [History] OxyCODONE/APAP 5/325 [Percocet 5/325 MG] 1 tab PO Q6HR PRN 04/05/16 [History] Allergies Ubnjtnh-Vje-Lkj Reductase Inhibitor [Statins] Adverse Reaction (Verified 12:55) Muscle Pain Review of Systems All systems PM: reviewed and no additional remarkable complaints except as stated (in the HPI (much of the information has been provided per the patient's )) All systems PM: A 10-system review of systems was performed and is negative for pertinent findings except as documented above in the HPI. General Surgery Exam Initial Vital Signs Temp Pulse Resp BP Pulse Ox 97.7 F 60 16 136/67 100 04/05/16 14:34 04/05/16 14:34 04/05/16 14:34 04/05/16 14:34 04/05/16 14:34 - General physical appearance well developed, well nourished, moderate pain - Eyes normal ocular movement - ENT normal mucosa, atraumatic, normocephalic - Neck trachea midline - Respiratory normal respiratory effort, clear to auscultation, other (diminished bibasilar bases) - Cardiovascular Cardiovascular exam: Present: RRR - Abdomen Abdomen general surgery: Present: bowel sounds present, soft, tender (Large hematoma noted to right flank area) Abdominal Tenderness: Present: diffusely - Incision Incision: Present: clean and dry, intact - Genitourinary Present: testicles present (Edematous (improving), Ecchymosis (improving), small superficial abrasion noted to left testicle), other (Wilson catheter to SD with clear, yellow urine noted) - Integumentary Integumentary general surgery: Present: warm and dry - Neurologic Present: CN 2-12 grossly intact - Musculoskeletal Present: other (moderate deconditioning) - Psychiatric Psychiatric general surgery: Present: oriented to person, oriented to place Exam Initial Vital Signs Temp Pulse Resp BP Pulse Ox 97.7 F 60 16 136/67 100 04/05/16 14:34 04/05/16 14:34 04/05/16 14:34 04/05/16 14:34 04/05/16 14:34 Results - Labs 04/06/16 05:33 04/06/16 05:33 Abnormal lab results WBC 4.2 K/mcL (4.3-11.1) L 04/06/16 05:33 RBC 2.93 M/mcL (4.19-5.50) L 04/06/16 05:33 Hgb 8.2 g/dL (12.9-16.9) L 04/06/16 05:33 Hct 25.7 % (37.5-50.1) L 04/06/16 05:33 Plt Count 95 K/mcL (140-400) L 04/06/16 05:33 MPV 8.8 fL (9.4-12.4) L 04/06/16 05:33 Lymphocytes # 0.5 K/mcL (0.6-4.6) L 04/06/16 05:33 Immature Plt Fraction 0.8 % (1.1-6.1) L 04/06/16 05:33 PT 15.1 Seconds (9.4-12.1) H 04/06/16 05:33 Sodium 135 mEq/L (136-145) L 04/06/16 05:33 Carbon Dioxide 15 mEq/L (19-29) L 04/06/16 05:33 BUN 96 mg/dL (8-26) H 04/06/16 05:33 Creatinine 2.32 mg/dL (0.72-1.25) H 04/06/16 05:33 Est GFR ( Amer) 34 (> 60) L 04/06/16 05:33 Est GFR (Non-Af Amer) 28 (> 60) L 04/06/16 05:33 BUN/Creatinine Ratio 41 (6-26) H 04/06/16 05:33 Glucose 69 mg/dL (70-99) L 04/06/16 05:33 Calculated Osmolality 308 (280-300) H 04/06/16 05:33 Calcium 8.5 mg/dL (8.6-10.8) L 04/06/16 05:33 Total Bilirubin 2.0 mg/dL (0.2-1.2) H 04/05/16 15:02 Direct Bilirubin 1.1 mg/dL (0.0-0.5) H 04/05/16 15:02 Alkaline Phosphatase 160 Units/L (38-126) H 04/05/16 15:02 Troponin I 0.14 ng/mL (0-0.03) H* 04/06/16 05:33 Albumin 3.3 g/dL (3.5-5.0) L 04/05/16 15:02 Albumin/Globulin Ratio 1.0 (1.1-2.2) L 04/05/16 15:02 Urine Clarity Cloudy (Clear) A 04/06/16 05:20 Urine Blood Trace (Negative) H 04/06/16 05:20 Ur Squamous Epith Cells Many per lpf (None-Few) H 04/06/16 05:20 Granular Casts Few per lpf (None Seen) H 04/06/16 05:20 All other labs normal. - Imaging CT scan - abdomen: report reviewed CT scan - pelvis: report reviewed Additional studies: Abdomen/Pelvis CT 04/05/16 14:46 IMPRESSION: 1. Findings compatible with the given history of recent right inguinal hernia repair including soft tissue gas in the right inguinal region and adjacent subcutaneous fat stranding. In addition, there is a 6.9 x 6.3 x 5.9 cm heterogeneous collection in the right anterior pelvis near the opening of the inguinal canal the contains both fluid and fat density. This may represent a developing abscess versus phlegmon. 2. Cirrhosis with portal hypertension. Small volume of abdominal ascites. 3. Trace bilateral pleural effusions with patchy bibasilar airspace opacities compatible with atelectasis versus infiltrates. 4. Status post right nephrectomy. D/ / Дмитрий Hui MD / Дмитрий Hui MD Interpreting Provider: Дмитрий Hui MD Chest X-Ray 04/06/16 01:35 IMPRESSION: 1. Cardiomegaly with mild congestive heart failure. D/ / 04/06/2016 07:15:36 Susie Jorgensen MD / cierra Interpreting Provider: Susie Jorgensen MD Consult Discharge Plan - Plan Referrals: Rashel Bowman MD [Primary Care Provider] - - Attending Attestation I examined this patient and my medical decision-making was reviewed with the [employer] SUPERVISOR/PA/Advanced Practice Nurse/Resident Physician. I agree with the documented findings, disposition and treatment plan as described except to the extent set forth below.
[2016-04-06] MEDS: Gentamicin OPTH Soln 5 ML BOTTLE RIGHT EYE SCH ×2 (17:04→22:22)
--- NOTE | 2016-04-06 17:48 | Internal Med Progress Note ---
<AlexDeep honeycutt - Last Filed: 04/06/16 17:37> Date of Encounter: 04/06/16 Time of Encounter: 10:15 - Assessment and plan (1) Status post hernia repair Current Visit: Yes Status: Acute Assessment and plan: Patient came to hospital with CC of increased swelling, bruising, pain in scrotum and abdomen. He recently had a right inguinal hernia repair by Dr. Williamson. Surgery on board and following- they state no surgical intervention indicated and to continue with supportive measures. Ultrasound of scrotum showed diffuse edema in the scrotal sac. Testicles showed to be heterogenous in appeareance, which is nonspecific but could also be related to edema. No definite increased vascularity was seen to specifically suggest orchitis, no hydrocele. Continue with pain control. Elevate scrotum on towels to encourage fluid redistribution. (2) Altered mental status Current Visit: Yes Status: Acute Assessment and plan: this morning, patient was alert and oriented x3. Later in the evening, patient was not oriented to place or time and appeared to be confused. Stat CT head pending. Qualifiers: Altered mental status type: unspecified Qualified Code(s): R41.82 - Altered mental status, unspecified (3) Elevated troponin Current Visit: Yes Status: Acute Assessment and plan: Patient came in with elevated troponins, values were .11, .13, .14. Patient denies any chest pain. Etiology likely due to severe pain and blood loss. Will continue to trend troponins. (4) Chronic kidney disease Current Visit: Yes Status: Chronic Assessment and plan: GFR measured at 28. Patient's Cr is 2.32, which is around his baseline level. Continue to monitor. Qualifiers: Chronic kidney disease stage: stage 4 (severe) Qualified Code(s): N18.4 - Chronic kidney disease, stage 4 (severe) (5) DM type 2 (diabetes mellitus, type 2) Current Visit: No Status: Acute Assessment and plan: Diabetic mechanically altered diet. Low dose sliding scale insulin with ACHS accuchecks. 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 - Subjective Interval history: 75 year old male evaluated at bedside. Patient is A&O x3, but appears lethargic. He states he is sore in his genital area, and complains of back pain. He dneies nausea, vomiting, diarrhea, fever. Admits to having chills. He has no other complaints today. - Constitutional Vitals: Temp Pulse Resp BP Pulse Ox 97.7 F 60 18 119/56 95 04/06/16 16:30 04/06/16 16:30 04/06/16 16:30 04/06/16 16:30 04/06/16 16:30 General appearance: Present: mild distress, A&O X 3, answers questions appropriately - Head Head exam: Present: atraumatic, normocephalic - Neck Neck exam general surgery: Present: supple, trachea midline - Respiratory Respiratory exam: Present: rales (present in lower lobes bilaterally but greater in left lower lobe. ) - Cardiovascular Cardiovascular exam: Present: RRR, +S1, +S2 Additional comments: scar down chest. Pacemaker present on left side of chest. - GI/Abdominal Additional comments: scars from surgery intact, no signs of infection in scars. Positive bowel sounds. Bruising present. Abdomen is firm, severely tender, and distended. - Extremities Exam Extremities exam: Absent: cyanotic, pedal edema - Back Exam Additional comments: severe hematoma and bruising present on right side of back, likely a complication from recent right inguinal hernia repair. - Neurological Exam Neurological exam: Present: alert, oriented X3, no focal deficits Internal Medicine: Result - Labs CBC & Chem 7: 04/06/16 05:33 04/06/16 05:33 - ABG Interpretation ABG results: PT/INR, D-dimer PT 15.1 Seconds (9.4-12.1) H 04/06/16 05:33 - Impressions Impressions Scrotum Ultrasound 04/06/16 14:30 IMPRESSION: Diffuse edema of the scrotal sac is present. The testicles are heterogeneous in appearance, which is nonspecific but could also be related to edema. No definite increased vascularity is seen to specifically suggest orchitis. No hydroceles are seen. D/ / 04/06/2016 16:10:03 Mayank Galvez MD / michelle Interpreting Provider: Mayank Galvez MD Consult Discharge Plan - Plan Referrals: Rashel Bowman MD [Primary Care Provider] - <Jose Velazquez - Last Filed: 04/06/16 18:48> Date of Encounter: 04/06/16 - Assessment and plan (1) Anemia Current Visit: Yes Status: Acute Qualifiers: Anemia type: other cause Other causes of anemia: acute posthemorrhagic Qualified Code(s): D62 - Acute posthemorrhagic anemia (2) Hematoma Current Visit: Yes Status: Acute (3) Anemia Current Visit: No Status: Chronic Qualifiers: Anemia type: B12 deficiency Vitamin B12 deficiency anemia type: unspecified B12 deficiency Qualified Code(s): D51.9 - Vitamin B12 deficiency anemia, unspecified (4) Acute metabolic encephalopathy Current Visit: Yes Status: Acute (5) Thrombocytopenia Current Visit: Yes Status: Chronic - Constitutional Vitals: Temp Pulse Resp BP Pulse Ox 97.7 F 60 18 119/56 95 04/06/16 16:30 04/06/16 18:00 04/06/16 18:00 04/06/16 18:00 04/06/16 18:00 Internal Medicine: Result - Labs CBC & Chem 7: 04/06/16 05:33 04/06/16 05:33 - ABG Interpretation ABG results: PT/INR, D-dimer PT 15.1 Seconds (9.4-12.1) H 04/06/16 05:33 - Impressions Impressions Scrotum Ultrasound 04/06/16 14:30 IMPRESSION: Diffuse edema of the scrotal sac is present. The testicles are heterogeneous in appearance, which is nonspecific but could also be related to edema. No definite increased vascularity is seen to specifically suggest orchitis. No hydroceles are seen. D/ / 04/06/2016 16:10:03 Mayank Galvez MD / michelle Interpreting Provider: Mayank Galvez MD - Attending Attestation I examined this patient and my medical decision-making was reviewed with the Resident Physician on 04/06/16. I agree with the documented findings, disposition and treatment plan as described except to the extent set forth below. Mr Frye is currently admitted for acute posthemorragic anemia and hematoma. He is at moderate to high risk due to potential for worsening anemia and further blood loss. Mr Frye is comfortable at this time. His is at bedside and is concerned he is confused. He is having pain in his back some. No N/V or fever. Exam Alert Comfortable Heart reg Lungs no wheeze Hematoma/ecchymosis present Scrotal edema present I/P 1. Hematoma 2. Posthemorrhagic anemia 3. Acute encephalopathy - CT 4. Chronic thrombocytopenia Further diagnoses and plan as above.
--- NOTE | 2016-04-06 19:03 | Electrocardiograph Report ---
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
[2016-04-06] MEDS ORDERED: Haloperidol Lactate 5 MG/ML VIAL ONE (22:19)
[2016-04-06] MEDS: Haloperidol Lactate 5 MG/ML VIAL IVP ONE ×2 (22:22→22:38)
[2016-04-07 01:35] LABS: Basophils % 0.6 %; Hematocrit 27.4 % (37.5-50.1)
[2016-04-07 01:37] LABS: Eosinophils # 0.3 K/mcL (0.0-0.6); Eosinophils % 4.8 %; Hemoglobin 8.8 g/dL (12.9-16.9); Immature Granulocytes % 0.8 % (0-4); Immature Platelets 0.6 % (1.1-6.1); Lymphocytes # 0.6 K/mcL (0.6-4.6); Lymphocytes % 11.4 %; Mean Corpuscular HGB Conc 32.1 g/dL (31.6-35.5); Mean Corpuscular Hemoglobin 28.1 pg (28.0-33.3); Mean Corpuscular Volume 87.5 fL (83.0-100.0); Mean Platelet Volume 8.5 fL (9.4-12.4); Monocytes # 0.6 K/mcL (0.0-1.3); Monocytes % 11.4 %; Platelet Count 104 K/mcL (140-400); Red Blood Count 3.13 M/mcL (4.19-5.50); Red Cell Distribution Width 13.3 % (11.5-14.5)
[2016-04-07 01:38] LABS: Neutrophils # 3.8 K/mcL (1.6-8.9)
[2016-04-07 01:52] LABS: Calcium 8.5 mg/dL (8.6-10.8)
[2016-04-07] MEDS: Gentamicin OPTH Soln 5 ML BOTTLE RIGHT EYE SCH ×4 (08:33→20:52)
[2016-04-07] MEDS: Insulin LISPRO 300 UNITS/3 ML VIAL SQ SCH ×4 (08:33→20:52)
--- NOTE | 2016-04-07 10:35 | General Surgery Progress Note ---
Date of Encounter: 04/07/16 Time of Encounter: 10:00 - Assessment and Plan (1) Status post hernia repair Current Visit: Yes Status: Acute Right flank hematoma noted- treat with supportive measures No surgical intervention indicated CT reviewed per Dr. Williamson Supportive care/pain control Continue mechanical soft diet with diabetic modifications Wilson catheter to SD due to significant scrotal swelling (improving)- will need outpatient follow-up with Dr. Dumont PT/OT daily- recommending inpatient rehab at discharge (2) Urinary retention Current Visit: No Status: Resolved Continue wilson catheter to SD Follow-up with Dr. Dumont as outpatient (3) Chronic kidney disease Current Visit: Yes Status: Chronic At baseline Management per medicine service Qualifiers: Chronic kidney disease stage: stage 4 (severe) Qualified Code(s): N18.4 - Chronic kidney disease, stage 4 (severe) (4) Elevated troponin Current Visit: Yes Status: Acute (5) Generalized weakness Current Visit: No Status: Acute PT/OT daily Plan for inpatient rehabilitation at discharge (6) Thrombocytopenia Current Visit: Yes Status: Chronic Stable (7) DVT prophylaxis Current Visit: Yes Status: Acute Compression stockings ordered for bilateral lower extremities for DVT prophylaxis Subjective Patient reports: no new complaints, feels better, still having pain, pain is less, tolerating a regular diet (poor appetite), flatus, no bowel movement, afebrile, other (Patient pleasantly confused this morning; combative last night and now with sitter at bedside) Objective Vital Signs - Last 8 Hours Temp Pulse Resp BP Pulse Ox 04/07/16 08:00 97.8 F 60 20 121/63 04/07/16 04:00 98.4 F 60 16 104/56 93 L Intake and Output 04/06/16 04/07/16 04/07/16 23:59 07:59 15:59 Intake Total 0 / 0 0 / 0 Output Total 700 / 700 500 / 500 Balance -700 / -700 -500 / -500 Intake: Oral 0 / 0 0 / 0 Output: Catheter 700 / 700 500 / 500 Other: Weight 81.4 kg Blood Glucose* 137 138 Patient Weight 04/07/16 23:59 Weight 81.4 kg - General physical appearance well developed, well nourished, moderate pain - Eyes normal ocular movement - ENT normal mucosa, atraumatic, normocephalic - Neck Neck exam: trachea midline - Respiratory normal respiratory effort, clear to auscultation, other (diminished bibasilar bases) - Cardiovascular Cardiovascular exam: Present: RRR - Abdomen Abdomen: Present: bowel sounds present, soft, tender (improving) - Incision Incision: Present: clean and dry, intact - Genitourinary other (wilson catheter to SD with clear, yellow urine noted) - Integumentary other (large right flank hematoma noted) - Neurologic CN 2-12 grossly intact - Psychiatric oriented to person, oriented to place - Labs 04/07/16 01:16 04/07/16 01:16 Diabetes panel 04/07/16 Range/Units 01:16 Sodium 133 L (136-145) mEq/L Potassium 4.0 (3.5-4.5) mEq/L Chloride 106 (98-109) mEq/L Carbon Dioxide 14 L (19-29) mEq/L BUN 91 H (8-26) mg/dL Creatinine 2.43 H (0.72-1.25) mg/dL Glucose 123 H (70-99) mg/dL Calcium 8.5 L (8.6-10.8) mg/dL Calcium panel 04/07/16 Range/Units 01:16 Calcium 8.5 L (8.6-10.8) mg/dL Pituitary panel 04/07/16 Range/Units 01:16 Sodium 133 L (136-145) mEq/L Potassium 4.0 (3.5-4.5) mEq/L Chloride 106 (98-109) mEq/L Carbon Dioxide 14 L (19-29) mEq/L BUN 91 H (8-26) mg/dL Creatinine 2.43 H (0.72-1.25) mg/dL Glucose 123 H (70-99) mg/dL Calcium 8.5 L (8.6-10.8) mg/dL Adrenal panel 04/07/16 Range/Units 01:16 Sodium 133 L (136-145) mEq/L Potassium 4.0 (3.5-4.5) mEq/L Chloride 106 (98-109) mEq/L Carbon Dioxide 14 L (19-29) mEq/L BUN 91 H (8-26) mg/dL Creatinine 2.43 H (0.72-1.25) mg/dL Glucose 123 H (70-99) mg/dL Calcium 8.5 L (8.6-10.8) mg/dL Consult Discharge Plan - Plan Referrals: Rashel Bowman MD [Primary Care Provider] - - Attending Attestation I examined this patient and my medical decision-making was reviewed with the GIN FEEDER/PA/Advanced Practice Nurse/Resident Physician. I agree with the documented findings, disposition and treatment plan as described except to the extent set forth below.
--- NOTE | 2016-04-07 10:51 | Internal Med Progress Note ---
<Deep Funez - Last Filed: 04/07/16 10:48> Date of Encounter: 04/07/16 Time of Encounter: 07:00 - Assessment and plan (1) Acute metabolic encephalopathy Current Visit: Yes Status: Acute Assessment and plan: Since last night, patient has been intermittently confused. Per nursing staff, last night he was very agitated, trying to take his clothes off, and stated that he wanted to go home. He was very rude to nursing staff. This morning, patient was alert and oriented to person and time. CT head was negative for any acute process. Etiology likely metabolic in setting of CKD. Patient has history of CKD stage 4. Consult to Nephrology ([facility]) for recommendations- concern that patient may require dialysis due to uremia. CXR to look for infection. Urinalysis with culture pending. Stat ABG pending. (2) Status post hernia repair Current Visit: Yes Status: Acute Assessment and plan: Patient came to hospital with CC of increased swelling, bruising, pain in scrotum and abdomen. He recently had a right inguinal hernia repair by Dr. Williamson. Surgery on board and following- they state no surgical intervention indicated and to continue with supportive measures. Ultrasound of scrotum showed diffuse edema in the scrotal sac. Testicles showed to be heterogenous in appeareance, which is nonspecific but could also be related to edema. No definite increased vascularity was seen to specifically suggest orchitis, no hydrocele. Continue with pain control. Elevate scrotum on towels to encourage fluid redistribution. 04/07: Scrotal bruising and significant swelling still present, but improved compared to yesterday. Patient will need rehab upon discharge (with wilson). Per , they prefer to go to [facility]- will let elementary school social worker know about this. Patient will need follow up with Dr. Dumont outpatient- will tell litigation secretary to set up appointment. (3) Elevated troponin Current Visit: Yes Status: Acute Assessment and plan: Patient came in with elevated troponins, values were .11, .13, .14. Patient denies any chest pain. Etiology likely due to severe pain and blood loss. Will continue to trend troponins. 04/07/16: Troponins continue to be elevated: .14, .14, .11, .11.- trending down. Etiology likely due to blood loss and pain Patient continues to be chest pain free EKG ordered and pending. (4) Chronic kidney disease Current Visit: Yes Status: Chronic Assessment and plan: GFR measured at 26. Patient's Cr is 2.43, which is around his baseline level but worse since yesterday. Continue to monitor. Nephrology on board for recommendations regarding dialysis. Qualifiers: Chronic kidney disease stage: stage 4 (severe) Qualified Code(s): N18.4 - Chronic kidney disease, stage 4 (severe) (5) DM type 2 (diabetes mellitus, type 2) Current Visit: No Status: Acute Assessment and plan: Diabetic mechanically altered diet. Low dose sliding scale insulin with ACHS accuchecks. 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 up to chair twice a day. - Subjective Interval history: 75 year old male evaluated at bedside. Per nursing staff, Patient was very agitated and confused last night. He was trying to rip off his clothes, wanted to go home. He received 2mg Halodol and kept trying to get out of bed. He now has a sitter in the room with him. This morning, he was only alert and oriented to person and time. He thought he was at home. He continues to report back pain. He denies chest pain, denies nausea, vomiting, diarrhea. He reports that the pain in his testicle is about the same since yesterday. - Constitutional Vitals: Temp Pulse Resp BP Pulse Ox 97.8 F 60 20 121/63 93 L 04/07/16 08:00 04/07/16 08:00 04/07/16 08:00 04/07/16 08:00 04/07/16 04:00 General appearance: Present: mild distress, A&O X 3, answers questions appropriately - Head Head exam: Present: atraumatic, normocephalic - Eye Eye exam: Present: PERRL Pupils: Present: PERRL - Neck Neck exam general surgery: Present: supple, trachea midline - Respiratory Respiratory exam: Present: rales (present in lower lobes bilaterally. ) - Cardiovascular Cardiovascular exam: Present: RRR, +S1, +S2 Additional comments: scar present down middle of chest, pacemaker in place. - GI/Abdominal GI/Abdominal exam: Present: distended, firm, normal bowel sounds, tenderness Additional comments: significant abdominal bruising. Surgical scars are clean, dry, intact with no signs of infection. - exam: Present: scrotal swelling, testicular tenderness (significant testicular enlargement with bruising and pain, but improved since yesterday. Wilson catheter in place. ) External exam: Present: ecchymosis, erythema - Extremities Exam Extremities exam: Absent: cyanotic, pedal edema Additional comments: AV fistula present in right arm. - Neurological Exam Neurological exam: Present: alert (oriented x2. ), no focal deficits, strengths equal and symetr throughout - Psychiatric Psychiatric exam: Present: anxious Internal Medicine: Result - Labs CBC & Chem 7: 04/07/16 01:16 04/07/16 01:16 Labs: Short CBC 04/07/16 Range/Units 01:16 WBC 5.3 (4.3-11.1) K/mcL Hgb 8.8 L (12.9-16.9) g/dL Hct 27.4 L (37.5-50.1) % Plt Count 104 L (140-400) K/mcL Neutrophils # 3.8 (1.6-8.9) K/mcL BMP 04/07/16 01:16 Sodium 133 L Potassium 4.0 Chloride 106 Carbon Dioxide 14 L BUN 91 H Creatinine 2.43 H Glucose 123 H Calcium 8.5 L Cardiac Enzymes 04/06/16 04/07/16 04/07/16 Range/Units 18:17 01:16 06:59 Troponin I 0.14 H* 0.11 H* 0.11 H* (0-0.03) ng/mL - ABG Interpretation ABG results: PT/INR, D-dimer PT 15.1 Seconds (9.4-12.1) H 04/06/16 05:33 - Impressions Impressions Scrotum Ultrasound 04/06/16 14:30 IMPRESSION: Diffuse edema of the scrotal sac is present. The testicles are heterogeneous in appearance, which is nonspecific but could also be related to edema. No definite increased vascularity is seen to specifically suggest orchitis. No hydroceles are seen. D/ / 04/06/2016 16:10:03 Mayank Galvez MD / earnold Interpreting Provider: Mayank Galvez MD Head CT 04/06/16 17:32 IMPRESSION: No acute intracranial abnormality. D/ / Chauncey Mars MD / Chauncey Mars MD Interpreting Provider: Chauncey Mars MD Consult Discharge Plan - Plan Referrals: Rashel Bowman MD [Primary Care Provider] - <Jose Velazquez - Last Filed: 04/07/16 18:25> Date of Encounter: 04/07/16 - Assessment and plan (1) Acute metabolic encephalopathy Current Visit: Yes Status: Acute (2) Anemia Current Visit: Yes Status: Acute Qualifiers: Anemia type: other cause Other causes of anemia: acute posthemorrhagic Qualified Code(s): D62 - Acute posthemorrhagic anemia (3) Hematoma Current Visit: Yes Status: Acute (4) Anemia Current Visit: No Status: Chronic Qualifiers: Anemia type: B12 deficiency Vitamin B12 deficiency anemia type: unspecified B12 deficiency Qualified Code(s): D51.9 - Vitamin B12 deficiency anemia, unspecified (5) Thrombocytopenia Current Visit: Yes Status: Chronic (6) DM type 2 (diabetes mellitus, type 2) Current Visit: No Status: Acute Qualifiers: Diabetes mellitus complication status: with kidney complications Diabetes mellitus complication detail: with chronic kidney disease 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 Chronic kidney disease stage: stage 4 (severe) Qualified Code(s): E11.22 - Type 2 diabetes mellitus with diabetic chronic kidney disease; N18.4 - Chronic kidney disease, stage 4 (severe); 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 (7) Urinary retention Current Visit: No Status: Acute - Constitutional Vitals: Temp Pulse Resp BP Pulse Ox 98 F 59 16 127/66 97 04/07/16 15:35 04/07/16 15:35 04/07/16 15:35 04/07/16 15:35 04/07/16 15:35 Internal Medicine: Result - Labs CBC & Chem 7: 04/07/16 01:16 04/07/16 01:16 Labs: Short CBC 04/07/16 Range/Units 01:16 WBC 5.3 (4.3-11.1) K/mcL Hgb 8.8 L (12.9-16.9) g/dL Hct 27.4 L (37.5-50.1) % Plt Count 104 L (140-400) K/mcL Neutrophils # 3.8 (1.6-8.9) K/mcL BMP 04/07/16 01:16 Sodium 133 L Potassium 4.0 Chloride 106 Carbon Dioxide 14 L BUN 91 H Creatinine 2.43 H Glucose 123 H Calcium 8.5 L Cardiac Enzymes 04/06/16 04/07/16 04/07/16 Range/Units 18:17 01:16 06:59 Troponin I 0.14 H* 0.11 H* 0.11 H* (0-0.03) ng/mL Urine 04/07/16 Range/Units 13:55 Urine Color Yellow (Yellow) Urine Clarity Cloudy A (Clear) Urine pH 6.0 (5.0-8.0) pH Units Ur Specific [place] 1.016 (1.010-1.025) Urine Protein 30 H (Neg-Trace) mg/dL Urine Glucose (UA) Normal (Normal) mg/dL - ABG Interpretation ABG results: ABG ABG pH 7.34 pH Units (7.32-7.45) 04/07/16 11:35 ABG pCO2 30 mmHg (35-45) L 04/07/16 11:35 ABG pO2 86 mmHg (85-104) 04/07/16 11:35 ABG O2 Saturation 96 % (95-98) 04/07/16 11:35 PT/INR, D-dimer PT 15.1 Seconds (9.4-12.1) H 04/06/16 05:33 - Impressions Impressions Head CT 04/06/16 17:32 IMPRESSION: No acute intracranial abnormality. D/ / Chauncey Mars MD / Chauncey Mars MD Interpreting Provider: Chauncey Mars MD Chest X-Ray 04/07/16 11:06 IMPRESSION: Vascular congestion. D/ / 04/07/2016 11:37:59 Miguel Perea MD / earnold Interpreting Provider: Miguel Perea MD - Attending Attestation I examined this patient and my medical decision-making was reviewed with the Resident Physician on 04/07/16. I agree with the documented findings, disposition and treatment plan as described except to the extent set forth below. Mr. Frye is currently admitted for posthemorrhagic anemia, hematoma and now acute delirium. He remains moderate to high risk due to overall condition and need to monitor H/H, mental status. Mr. Frye is more confused today. He is having a lot of scrotal pain at this time. Denies CP or SOB. No cough. No abd pain. Exam Alert. Disoriented to place, time Heart reg Lungs diminished Abd soft I/P 1. Acute encephalopathy - labs ordered. Supportive care 2. Anemia due to acute blood loss Further diagnoses and plan as above.
[2016-04-07 11:50] LABS: ABG Base Excess -8.6 mEq/L (-2.0 to 3.0); ABG HCO3 16.2 mEQ/L (21-27); ABG Oxygen Saturation 96 % (95-98); ABG PCO2 30 mmHg (35-45); ABG PH 7.34 pH Units (7.32-7.45); ABG PO2 86 mmHg (85-104); ABG TCO2 17.1 mEq/L (20-26)
[2016-04-07 11:51] LABS: Blood Gas FiO2 32 %
[2016-04-07] MEDS ORDERED: Lidocaine (Urojet) 5 ML JEL.PF.APP MM ONE (12:13)
[2016-04-07] MEDS ORDERED: *HR* LORazepam 2 MG/ML VIAL IVP ONE (12:13)
[2016-04-07] MEDS: Thiamine (B-1) 100 MG TABLET PO SCH (12:50)
[2016-04-07] MEDS ORDERED: Lidocaine Jelly 6 ml Syringe MM ONE (13:45)
[2016-04-07 14:32] LABS: Bilirubin,Urine Negative (Negative); Blood,Urine Small (Negative); Clarity,Urine Cloudy (Clear); Color,Urine Yellow (Yellow); Glucose,Urine (UA) Normal (Normal); Ketones,Urine Negative (Negative); Leukocyte Esterase,Urine Small (Negative); Nitrite,Urine Negative (Negative); Protein,Urine 30 mg/dL (Neg-Trace); Specific Gravity,Urine 1.016 (1.010-1.025); Urobilinogen,Urine Normal (Normal)
[2016-04-07 14:36] LABS: Bacteria,Urine None Seen per hpf (None-Few); Hyaline Casts,Urine None Seen per lpf (None-Few); RBC,Urine 0-3 per hpf (0-3); Squamous Epithelial Cell,Urine Many per lpf (None-Few)
[2016-04-07 15:04] LABS: Amorphous Sediment,Urine Few (Few)
[2016-04-07] MEDS: Gabapentin 300 MG CAPSULE PO SCH (21:52)
[2016-04-08] MEDS ORDERED: Haloperidol Lactate 5 MG/ML VIAL IVP ONE (01:35)
[2016-04-08 05:58] LABS: Basophils % 0.5 %; Eosinophils # 0.3 K/mcL (0.0-0.6); Eosinophils % 4.3 %; Hematocrit 28.6 % (37.5-50.1); Hemoglobin 9.3 g/dL (12.9-16.9); Immature Granulocytes % 0.6 % (0-4); Lymphocytes % 16.7 %; Mean Corpuscular HGB Conc 32.5 g/dL (31.6-35.5); Mean Corpuscular Hemoglobin 28.7 pg (28.0-33.3); Mean Corpuscular Volume 88.3 fL (83.0-100.0); Mean Platelet Volume 9.5 fL (9.4-12.4); Monocytes # 0.7 K/mcL (0.0-1.3); Monocytes % 11.7 %; Neutrophils # 4.1 K/mcL (1.6-8.9); Platelet Count 101 K/mcL (140-400); Red Blood Count 3.24 M/mcL (4.19-5.50); Red Cell Distribution Width 13.5 % (11.5-14.5); Segmented Neutrophils % 66.2 %
[2016-04-08 06:14] LABS: Calcium 8.9 mg/dL (8.6-10.8); Potassium 4.3 mEq/L (3.5-4.5)
[2016-04-08] MEDS: Thiamine (B-1) 100 MG TABLET PO SCH (11:03)
[2016-04-08] MEDS: Gabapentin 300 MG CAPSULE PO SCH ×3 (11:04→20:13)
[2016-04-08] MEDS: Gentamicin OPTH Soln 5 ML BOTTLE RIGHT EYE SCH ×4 (11:04→20:13)
[2016-04-08] MEDS: Insulin LISPRO 300 UNITS/3 ML VIAL SQ SCH ×4 (11:04→20:12)
--- NOTE | 2016-04-08 11:54 | Nephrology Consult Note ---
Date of Encounter: 04/08/16 Time of Encounter: 11:51 Assessment and Plan (1) Chronic kidney disease, stage IV (severe) Current Visit: Yes Status: Acute The patient has stage IV chronic kidney disease. Actually his renal function is quite stable. Do not believe that his confusion is related to his renal failure or uremia. I will continue to keep the patient well hydrated with IV fluids since he is not eating or drinking much. I believe that his confusion is being caused for other reasons possibly related to pain medications. He does have a history of cirrhosis. I would recommend checking a ammonia level if that has not already been checked. (2) Status post hernia repair Current Visit: Yes Status: Acute History of Present Illness - History of Present Illness This is a 75-year-old male who is followed as an outpatient for stage IV chronic kidney disease with a baseline creatinine in the mid twos. Patient has a solitary kidney following a nephrectomy for renal cell cancer. Patient underwent an outpatient elective right inguinal hernia repair on March 31. Patient admitted to the hospital because of increasing pain and scrotal swelling and edema. His renal function has been relatively stable. He did exhibit increased confusion. There was a concern that he may be uremic and that this may be causing his confusion. As already stated his renal function is actually quite stable. Patient currently has a Luna catheter in place. He still having some discomfort. He also exhibits a lot of ecchymosis along the right flank area as well as the scrotum. Past Med Surg Social Fam HX - Past Medical History Medical history: atrial fibrillation, cancer, CHF, CVA, diabetes, hyperlipidemia , hypertension, myocardial infarction, renal disease, other Psychiatric history: no psych history - Past Surgical History Surgical History: coronary bypass (CABG), other, pacemaker - Social History Smoking Status: Former smoker Smokeless Tobacco Status: No Alcohol use: none Drug use: none - Family History Father History Unknown: Yes Living Status: Medications and Allergies GlyBURIDE 5 mg PO BID 02/10/15 [History] Isosorbide MONOnitrate (24 HR) [Imdur] 30 mg PO DAILY 02/10/15 [History] Levothyroxine [Synthroid] 88 mcg PO DAILY 02/10/15 [History] Docusate Sodium [Dok] 100 mg PO BID PRN 11/02/15 [History] Insulin Glargine,Hum.rec.anlog [Lantus Solostar] 0 - 40 unit SQ HS PRN 11/02/15 [History] Gabapentin [Neurontin] 300 mg PO TID PRN 01/21/16 [History] Pravastatin Sodium 10 mg PO HS 01/21/16 [History] Carvedilol 12.5 mg PO BID 03/31/16 [History] Furosemide [Lasix] 20 mg PO QAM 03/31/16 [History] OxyCODONE/APAP 5/325 [Percocet 5/325 MG] 1 tab PO Q6HR PRN 04/05/16 [History] Allergies Wscxdri-Bis-Yyp Reductase Inhibitor [Statins] Adverse Reaction (Verified 12:55) Muscle Pain Review of Systems Constitutional: weakness Eyes: bilateral: blurred vision (patient denies), diplopia (patient denies) Nose, mouth and throat: no dizziness, no headache(s) Cardiovascular: dyspnea on exertion Respiratory: dyspnea on exertion Gastrointestinal: abdominal pain Genitourinary Male: as per HPI, scrotal swelling, other Musculoskeletal: no muscle weakness, no numbness Integumentary: no hirsutism, no striae Neurological: confusion Psychiatric: no depression, no difficulty concentrating Endocrine: as per HPI Hematologic/Lymphatic: no easy bruising, no lymphadenopathy Exam - Vital Signs Vital signs: Initial Vital Signs Temp Pulse Resp BP Pulse Ox 97.7 F 60 16 136/67 100 04/05/16 14:34 04/05/16 14:34 04/05/16 14:34 04/05/16 14:34 04/05/16 14:34 Vital Signs - Last 8 Hours Temp Pulse Resp BP Pulse Ox 04/08/16 06:28 97.4 F L 60 26 136/69 98 Intake and Output 04/07/16 04/08/16 04/08/16 23:59 07:59 15:59 Intake Total 100 / 100 500 / 500 120 / 120 Output Total 0 / 0 450 / 450 Balance 100 / 100 50 / 50 120 / 120 Intake: Oral 100 / 100 500 / 500 120 / 120 Output: Catheter 0 / 0 450 / 450 Other: Meal Breakfast Percent of Meal Consumed 25% Weight 82.18 kg Blood Glucose* 180 143 Patient Weight 04/08/16 23:59 Weight 82.18 kg - General Appearance Exam: The patient is somnolent. He responds to verbal stimuli and then falls back to sleep. He is in no acute distress. Vital signs are stable. Luna catheter is in place. Neck is supple. Lungs essentially clear to auscultation anteriorly. Heart regular rate and rhythm. He has a paced rhythm on heart monitor. Abdomen normal bowel sounds bruits masses megaly or tenderness. Abdomen is soft. Somewhat distended. Lower extremity show no peripheral edema. He does have ecchymosis along the right flank as well as his scrotum. Results - Lab Results 04/08/16 04:44 04/08/16 04:44 Most recent lab results ABG pH 7.34 pH Units (7.32-7.45) 04/07/16 11:35 ABG pCO2 30 mmHg (35-45) L 04/07/16 11:35 ABG pO2 86 mmHg (85-104) 04/07/16 11:35 ABG HCO3 16.2 mEQ/L (21-27) L 04/07/16 11:35 ABG O2 Saturation 96 % (95-98) 04/07/16 11:35 Calcium 8.9 mg/dL (8.6-10.8) 04/08/16 04:44 Consult Discharge Plan - Plan Referrals: Rashel Bowman MD [Primary Care Provider] -
--- NOTE | 2016-04-08 15:11 | General Surgery Progress Note ---
Date of Encounter: 04/08/16 Time of Encounter: 15:00 - Assessment and Plan (1) Status post hernia repair Current Visit: Yes Status: Acute Right flank hematoma noted- treat with supportive measures No surgical intervention indicated CT reviewed per Dr. Williamson Supportive care/pain control Continue mechanical soft diet with diabetic modifications Wilson catheter to SD due to significant scrotal swelling (improving)- will need outpatient follow-up with Dr. Dumont PT/OT daily- recommending inpatient rehab at discharge Surgery will sign off at this time; will plan for follow-up as outpatient as scheduled. Please call with any further questions concerns. (2) Urinary retention Current Visit: No Status: Acute Continue wilson catheter to SD Follow-up with Dr. Dumont as outpatient (3) Chronic kidney disease Current Visit: Yes Status: Chronic At baseline Management per medicine service Qualifiers: Chronic kidney disease stage: stage 4 (severe) Qualified Code(s): N18.4 - Chronic kidney disease, stage 4 (severe) (4) Elevated troponin Current Visit: Yes Status: Acute (5) Generalized weakness Current Visit: No Status: Acute PT/OT daily Plan for inpatient rehabilitation at discharge (6) Thrombocytopenia Current Visit: Yes Status: Chronic Stable (7) DVT prophylaxis Current Visit: Yes Status: Acute Compression stockings ordered for bilateral lower extremities for DVT prophylaxis Subjective Patient reports: feels better, still having pain, pain is less, tolerating a regular diet, flatus, afebrile, other (Patient pleasantly confused) Objective Intake and Output 04/07/16 04/08/16 04/08/16 23:59 07:59 15:59 Intake Total 100 / 100 500 / 500 120 / 120 Output Total 0 / 0 450 / 450 Balance 100 / 100 50 / 50 120 / 120 Intake: Oral 100 / 100 500 / 500 120 / 120 Output: Catheter 0 / 0 450 / 450 Other: Meal Lunch Percent of Meal Consumed 50% Weight 82.18 kg Blood Glucose* 180 143 160 Patient Weight 04/08/16 23:59 Weight 82.18 kg - General physical appearance well developed, well nourished, moderate pain - Eyes normal ocular movement - ENT normal mucosa, atraumatic, normocephalic - Neck Neck exam: trachea midline - Respiratory normal respiratory effort - Cardiovascular Cardiovascular exam: Present: RRR - Abdomen Abdomen: Present: bowel sounds present, soft, tender (expected post-operative tenderness), wound (right flank with stable hematoma noted) - Incision Incision: Present: clean and dry, intact - Genitourinary other (wilson catheter to SD with clear, yellow urine) - Neurologic CN 2-12 grossly intact - Musculoskeletal other (moderate deconditioning) - Psychiatric oriented to person - Labs 04/08/16 04:44 04/08/16 04:44 Diabetes panel 04/08/16 Range/Units 04:44 Sodium 135 L (136-145) mEq/L Potassium 4.3 (3.5-4.5) mEq/L Chloride 109 (98-109) mEq/L Carbon Dioxide 16 L (19-29) mEq/L BUN 87 H (8-26) mg/dL Creatinine 2.23 H (0.72-1.25) mg/dL Glucose 105 H (70-99) mg/dL Calcium 8.9 (8.6-10.8) mg/dL Calcium panel 04/08/16 Range/Units 04:44 Calcium 8.9 (8.6-10.8) mg/dL Pituitary panel 04/08/16 Range/Units 04:44 Sodium 135 L (136-145) mEq/L Potassium 4.3 (3.5-4.5) mEq/L Chloride 109 (98-109) mEq/L Carbon Dioxide 16 L (19-29) mEq/L BUN 87 H (8-26) mg/dL Creatinine 2.23 H (0.72-1.25) mg/dL Glucose 105 H (70-99) mg/dL Calcium 8.9 (8.6-10.8) mg/dL Adrenal panel 04/08/16 Range/Units 04:44 Sodium 135 L (136-145) mEq/L Potassium 4.3 (3.5-4.5) mEq/L Chloride 109 (98-109) mEq/L Carbon Dioxide 16 L (19-29) mEq/L BUN 87 H (8-26) mg/dL Creatinine 2.23 H (0.72-1.25) mg/dL Glucose 105 H (70-99) mg/dL Calcium 8.9 (8.6-10.8) mg/dL Consult Discharge Plan - Plan Referrals: Rashel Bowman MD [Primary Care Provider] - Valentín Williamson DO [Partnered Physician] - 04/20/16 1:50 pm (surgery follow-up) Neal Dumont MD [Partnered Physician] - 04/20/16 (coordinate with Dr. Williamson appointment; check wilson catheter) - Attending Attestation I examined this patient and my medical decision-making was reviewed with the SENIOR DATA MINING ANALYST/PA/Advanced Practice Nurse/Resident Physician. I agree with the documented findings, disposition and treatment plan as described except to the extent set forth below.
--- NOTE | 2016-04-08 17:21 | Internal Med Progress Note ---
<Deep Funez - Last Filed: 04/08/16 17:18> Date of Encounter: 04/08/16 Time of Encounter: 10:30 - Assessment and plan (1) Acute metabolic encephalopathy Current Visit: Yes Status: Acute Assessment and plan: Since last night, patient has been intermittently confused. Per nursing staff, last night he was very agitated, trying to take his clothes off, and stated that he wanted to go home. He was very rude to nursing staff. This morning, patient was alert and oriented to person and time. CT head was negative for any acute process. Etiology likely metabolic in setting of CKD. Patient has history of CKD stage 4. Consult to Nephrology ([facility]) for recommendations- concern that patient may require dialysis due to uremia. CXR to look for infection. Urinalysis with culture pending. Stat ABG pending. 04/08/16 Patient continues to be intermittently confused. During exam today, it was noted that patient's had shut the blinds in the room. She was educated on the importance of keeping blinds open to help with delirium. Nephrology has seen this patient- noted that his confusion is unlikely due to uremia. will re check ammonia levels. continue with day/night re-orientation. PRN haloperidol added for agitation (2) Status post hernia repair Current Visit: Yes Status: Acute Assessment and plan: Patient came to hospital with CC of increased swelling, bruising, pain in scrotum and abdomen. He recently had a right inguinal hernia repair by Dr. Williamson. Surgery on board and following- they state no surgical intervention indicated and to continue with supportive measures. Ultrasound of scrotum showed diffuse edema in the scrotal sac. Testicles showed to be heterogenous in appeareance, which is nonspecific but could also be related to edema. No definite increased vascularity was seen to specifically suggest orchitis, no hydrocele. Continue with pain control. Elevate scrotum on towels to encourage fluid redistribution. 04/07: Scrotal bruising and significant swelling still present, but improved compared to yesterday. Patient will need rehab upon discharge (with wilson). Per , they prefer to go to [facility]- will let socially responsible investment adviser know about this. Patient will need follow up with Dr. Dumont outpatient- will tell stenographer secretary to set up appointment. 04/08: scrotum continues to be swollen and bruised, but continues to improve. Surgery has signed off, no surgical interventions needed at this time. Patient has been approved for swing bed at [facility]. continue with supportive measures, continue to elevate scrotum on towel. (3) Elevated troponin Current Visit: Yes Status: Acute Assessment and plan: Patient came in with elevated troponins, values were .11, .13, .14. Patient denies any chest pain. Etiology likely due to severe pain and blood loss. Will continue to trend troponins. 04/07/16: Troponins continue to be elevated: .14, .14, .11, .11.- trending down. Etiology likely due to blood loss and pain Patient continues to be chest pain free EKG ordered and pending. 04/08/16 troponins trending down. Patient is currently chest pain free. (4) Chronic kidney disease Current Visit: Yes Status: Chronic Assessment and plan: GFR measured at 29. Patient's Cr is 2.23, which is around his baseline level but worse since yesterday. Continue to monitor. Nephrology on board for recommendations regarding dialysis. Qualifiers: Chronic kidney disease stage: stage 4 (severe) Qualified Code(s): N18.4 - Chronic kidney disease, stage 4 (severe) (5) DM type 2 (diabetes mellitus, type 2) Current Visit: No Status: Acute Assessment and plan: Diabetic diet. Low dose sliding scale insulin with ACHS accuchecks. 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 EPCDs-spoke with nurse to make sure that the patient has these on. - Subjective Interval history: 75 year old male evaluated at bedside. He continues to be confused. His was in the room, and she seemed to be very upset about the patient's diet and the type of foods he is receiving in the hospital. He continues to be alert and oriented to person and time but not place. - Constitutional Vitals: Temp Pulse Resp BP Pulse Ox 98.8 F 60 20 111/54 98 04/08/16 17:01 04/08/16 17:01 04/08/16 17:01 04/08/16 17:01 04/08/16 17:01 General appearance: Present: A&O X 2, mild distress, no acute distress Exam: patient is alert and oriented to person and time, but not place. - Head Head exam: Present: atraumatic, normocephalic - Eye Eye exam: Present: PERRL Pupils: Present: PERRL - Neck Neck exam general surgery: Present: supple, trachea midline - Respiratory Additional comments: mild rhonchi and wheezes present. - Cardiovascular Cardiovascular exam: Present: RRR Additional comments: scar from previous open heart surgery present. - GI/Abdominal GI/Abdominal exam: Present: distended Additional comments: distended, tender, surgical scars are clean, dry, and intact. - Additional comments: scrotum is still significantly swollen but continues to improve from previous days. - Extremities Exam Extremities exam: Absent: cyanotic, pedal edema - Back Exam Additional comments: right side of back still significantly bruised and swollen. - Neurological Exam Neurological exam: Present: alert, no focal deficits, strengths equal and symetr throughout - Psychiatric Additional comments: altered mental status. Internal Medicine: Result - Labs CBC & Chem 7: 04/08/16 04:44 04/08/16 04:44 Labs: Short CBC 04/08/16 Range/Units 04:44 WBC 6.2 (4.3-11.1) K/mcL Hgb 9.3 L (12.9-16.9) g/dL Hct 28.6 L (37.5-50.1) % Plt Count 101 L (140-400) K/mcL Neutrophils # 4.1 (1.6-8.9) K/mcL BMP 04/08/16 04:44 Sodium 135 L Potassium 4.3 Chloride 109 Carbon Dioxide 16 L BUN 87 H Creatinine 2.23 H Glucose 105 H Calcium 8.9 - ABG Interpretation ABG results: ABG ABG pH 7.34 pH Units (7.32-7.45) 04/07/16 11:35 ABG pCO2 30 mmHg (35-45) L 04/07/16 11:35 ABG pO2 86 mmHg (85-104) 04/07/16 11:35 ABG O2 Saturation 96 % (95-98) 04/07/16 11:35 PT/INR, D-dimer PT 15.1 Seconds (9.4-12.1) H 04/06/16 05:33 Consult Discharge Plan - Plan Referrals: Neal Dumont MD [Partnered Physician] - 04/20/16 (coordinate with Dr. Williamson appointment; check wilson catheter) Valentín Williamson DO [Partnered Physician] - 04/20/16 1:50 pm (surgery follow-up) Rashel Bowman MD [Primary Care Provider] - <Jose Velazquez - Last Filed: 04/08/16 18:32> Date of Encounter: 04/08/16 - Assessment and plan (1) Acute metabolic encephalopathy Current Visit: Yes Status: Acute (2) Anemia Current Visit: Yes Status: Acute Qualifiers: Anemia type: other cause Other causes of anemia: acute posthemorrhagic Qualified Code(s): D62 - Acute posthemorrhagic anemia (3) Hematoma Current Visit: Yes Status: Acute (4) Anemia Current Visit: No Status: Chronic Qualifiers: Anemia type: B12 deficiency Vitamin B12 deficiency anemia type: unspecified B12 deficiency Qualified Code(s): D51.9 - Vitamin B12 deficiency anemia, unspecified (5) Thrombocytopenia Current Visit: Yes Status: Chronic (6) DM type 2 (diabetes mellitus, type 2) Current Visit: No Status: Acute Qualifiers: Diabetes mellitus complication status: with kidney complications Diabetes mellitus complication detail: with chronic kidney disease Diabetes mellitus trapper animal insulin use: with trapper animal use Chronic kidney disease stage: stage 4 (severe) Qualified Code(s): E11.22 - Type 2 diabetes mellitus with diabetic chronic kidney disease; N18.4 - Chronic kidney disease, stage 4 (severe); Z79.4 - correction (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 of insulin (7) Urinary retention Current Visit: No Status: Acute - Constitutional Vitals: Temp Pulse Resp BP Pulse Ox 98.8 F 60 20 111/54 98 04/08/16 17:01 04/08/16 17:01 04/08/16 17:01 04/08/16 17:01 04/08/16 17:01 Internal Medicine: Result - Labs CBC & Chem 7: 04/08/16 04:44 04/08/16 04:44 Labs: Short CBC 04/08/16 Range/Units 04:44 WBC 6.2 (4.3-11.1) K/mcL Hgb 9.3 L (12.9-16.9) g/dL Hct 28.6 L (37.5-50.1) % Plt Count 101 L (140-400) K/mcL Neutrophils # 4.1 (1.6-8.9) K/mcL BMP 04/08/16 04:44 Sodium 135 L Potassium 4.3 Chloride 109 Carbon Dioxide 16 L BUN 87 H Creatinine 2.23 H Glucose 105 H Calcium 8.9 - ABG Interpretation ABG results: ABG ABG pH 7.34 pH Units (7.32-7.45) 04/07/16 11:35 ABG pCO2 30 mmHg (35-45) L 04/07/16 11:35 ABG pO2 86 mmHg (85-104) 04/07/16 11:35 ABG O2 Saturation 96 % (95-98) 04/07/16 11:35 PT/INR, D-dimer PT 15.1 Seconds (9.4-12.1) H 04/06/16 05:33 - Attending Attestation I examined this patient and my medical decision-making was reviewed with the Resident Physician on 04/08/16. I agree with the documented findings, disposition and treatment plan as described except to the extent set forth below. Mr. Frye is currently admitted for acute anemia related acute bleeding and acute encephalopathy. He is moderate to high risk due to continued encephalopathy and monitoring of labs. Mr. Frye appears to be less confused today. He received Haldol last night. is concerned about diet consistency. Exam Alert. Comfortable Heart reg No wheeze No edema I/P 1. Encephalopathy 2. Anemia Further diagnoses and plan as above.
[2016-04-08] MEDS ORDERED: Haloperidol Lactate 5 MG/ML VIAL IVP PRN (17:53)
[2016-04-08] MEDS: Acetaminophen 325 MG TABLET PO PRN (23:03)
[2016-04-09 05:12] LABS: Calcium 8.6 mg/dL (8.6-10.8)
[2016-04-09 05:13] LABS: Basophils % 0.7 %; Red Cell Distribution Width 13.5 % (11.5-14.5)
[2016-04-09 05:15] LABS: Eosinophils # 0.3 K/mcL (0.0-0.6); Eosinophils % 4.4 %; Hematocrit 28.3 % (37.5-50.1); Hemoglobin 9.1 g/dL (12.9-16.9); Immature Platelets 0.7 % (1.1-6.1); Lymphocytes # 0.9 K/mcL (0.6-4.6); Lymphocytes % 15.4 %; Mean Corpuscular HGB Conc 32.2 g/dL (31.6-35.5); Mean Corpuscular Hemoglobin 28.1 pg (28.0-33.3); Mean Corpuscular Volume 87.3 fL (83.0-100.0); Mean Platelet Volume 9.1 fL (9.4-12.4); Monocytes # 0.7 K/mcL (0.0-1.3); Monocytes % 11.2 %; Platelet Count 101 K/mcL (140-400); Red Blood Count 3.24 M/mcL (4.19-5.50); Segmented Neutrophils % 67.3 %
[2016-04-09] MEDS: Insulin LISPRO 300 UNITS/3 ML VIAL SQ SCH ×4 (08:54→21:51)
[2016-04-09] MEDS: Gabapentin 300 MG CAPSULE PO SCH ×3 (08:57→20:42)
[2016-04-09] MEDS: Thiamine (B-1) 100 MG TABLET PO SCH (08:57)
[2016-04-09] MEDS: Gentamicin OPTH Soln 5 ML BOTTLE RIGHT EYE SCH ×4 (08:57→20:41)
--- NOTE | 2016-04-09 11:09 | Nephrology Progress Note ---
Date of Encounter: 04/09/16 Time of Encounter: 11:07 - Assessment and Plan (1) Chronic kidney disease, stage IV (severe) Current Visit: Yes Status: Acute Patient has stage IV chronic kidney disease. His creatinine is stable. To be 1 suggestive of May also be a prerenal component. I's and O suggest decreased oral intake. Start the patient back on IV fluids and continue to monitor his renal function. (2) Status post hernia repair Current Visit: Yes Status: Acute Subjective Interval history: Patient is resting comfortably. His creatinine is stable but his BUNs rising. Review of the medical record indicates that his oral intake seems rather low. Objective - Vital Signs Vital signs: Vital Signs Temp Pulse Resp BP Pulse Ox 04/09/16 07:45 98.4 F 60 16 116/61 98 04/09/16 04:56 97.6 F 60 20 125/66 93 L 04/09/16 01:22 98.3 F 60 20 119/62 90 L 04/08/16 20:57 95 04/08/16 20:05 98.8 F 60 20 113/57 95 04/08/16 17:01 98.8 F 60 20 111/54 98 Intake and Output 04/08/16 04/09/16 04/09/16 23:59 07:59 15:59 Intake Total 120 / 120 0 / 0 Output Total 500 / 500 Balance 120 / 120 -500 / -500 Intake: Oral 120 / 120 0 / 0 Output: Catheter 500 / 500 Other: Meal Dinner Percent of Meal Consumed 75% # Voids 0 0 Weight 83.5 kg Blood Glucose* 191 141 Patient Weight 04/09/16 23:59 Weight 83.5 kg - General Appearance Exam: Patient is somnolent. He is in no acute distress. Lungs clear to auscultation. Heart regular rate and rhythm. Abdomen is benign. He continues to have changes of ecchymosis along the right flank. There is minimal lower extremity swelling. Wilson catheter is in place. - Lab 04/09/16 04:50 04/09/16 04:50 Most recent lab results ABG pH 7.34 pH Units (7.32-7.45) 04/07/16 11:35 ABG pCO2 30 mmHg (35-45) L 04/07/16 11:35 ABG pO2 86 mmHg (85-104) 04/07/16 11:35 ABG HCO3 16.2 mEQ/L (21-27) L 04/07/16 11:35 ABG O2 Saturation 96 % (95-98) 04/07/16 11:35 Calcium 8.6 mg/dL (8.6-10.8) 04/09/16 04:50 Consult Discharge Plan - Plan Referrals: Neal Dumont MD [Partnered Physician] - 04/20/16 (coordinate with Dr. Williamson appointment; check wilson catheter) Valentín Williamson DO [Partnered Physician] - 04/20/16 1:50 pm (surgery follow-up) Rashel Bowman MD [Primary Care Provider] -
[2016-04-09] MEDS: 0.9 % Sodium Chloride 1,000 ML IVC SCH (11:49)
[2016-04-09] MEDS ORDERED: Mag Hydrox/Al Hydrox/Simeth 30 ML UDC PO PRN (13:46)
--- NOTE | 2016-04-09 15:20 | Internal Med Progress Note ---
<Deep Funez - Last Filed: 04/09/16 15:17> Date of Encounter: 04/09/16 Time of Encounter: 06:30 - Assessment and plan (1) Acute metabolic encephalopathy Current Visit: Yes Status: Acute Assessment and plan: Since last night, patient has been intermittently confused. Per nursing staff, last night he was very agitated, trying to take his clothes off, and stated that he wanted to go home. He was very rude to nursing staff. This morning, patient was alert and oriented to person and time. CT head was negative for any acute process. Etiology likely metabolic in setting of CKD. Patient has history of CKD stage 4. Consult to Nephrology ([facility]) for recommendations- concern that patient may require dialysis due to uremia. CXR to look for infection. Urinalysis with culture pending. Stat ABG pending. 04/08/16 Patient continues to be intermittently confused. During exam today, it was noted that patient's had shut the blinds in the room. She was educated on the importance of keeping blinds open to help with delirium. Nephrology has seen this patient- noted that his confusion is unlikely due to uremia. will re check ammonia levels. continue with day/night re-orientation. PRN haloperidol added for agitation 04/09/16: patient is still alert and oriented x2. Less agitation. No acute events of agitation overnight. Continue to monitor and do day/night reorientation. Etiology likely delirium. Continue to monitor. (2) Status post hernia repair Current Visit: Yes Status: Acute Assessment and plan: Patient came to hospital with CC of increased swelling, bruising, pain in scrotum and abdomen. He recently had a right inguinal hernia repair by Dr. Williamson. Surgery on board and following- they state no surgical intervention indicated and to continue with supportive measures. Ultrasound of scrotum showed diffuse edema in the scrotal sac. Testicles showed to be heterogenous in appeareance, which is nonspecific but could also be related to edema. No definite increased vascularity was seen to specifically suggest orchitis, no hydrocele. Continue with pain control. Elevate scrotum on towels to encourage fluid redistribution. 04/07: Scrotal bruising and significant swelling still present, but improved compared to yesterday. Patient will need rehab upon discharge (with wilson). Per , they prefer to go to [facility] bed- will let director social welfare know about this. Patient will need follow up with Dr. Dumont outpatient- will tell medical office secretary to set up appointment. 04/08: scrotum continues to be swollen and bruised, but continues to improve. Surgery has signed off, no surgical interventions needed at this time. Patient has been approved for swing bed at [facility]. continue with supportive measures, continue to elevate scrotum on towel. 04/09/16: Scrotum drasticallly improved since admission. Continue to elevate on towels. Plan for discharge tomorrow. (3) Elevated troponin Current Visit: Yes Status: Acute Assessment and plan: Patient came in with elevated troponins, values were .11, .13, .14. Patient denies any chest pain. Etiology likely due to severe pain and blood loss. Will continue to trend troponins. 04/07/16: Troponins continue to be elevated: .14, .14, .11, .11.- trending down. Etiology likely due to blood loss and pain Patient continues to be chest pain free EKG ordered and pending. 04/08/16 troponins trending down. Patient is currently chest pain free. (4) Chronic kidney disease Current Visit: Yes Status: Chronic Assessment and plan: GFR measured at 29. Patient's Cr is 2.23, which is around his baseline level but worse since yesterday. Continue to monitor. Nephrology on board for recommendations regarding dialysis. Will continue with IV fluids and re check kidney function tomorrow morning. Qualifiers: Chronic kidney disease stage: stage 4 (severe) Qualified Code(s): N18.4 - Chronic kidney disease, stage 4 (severe) (5) DM type 2 (diabetes mellitus, type 2) Current Visit: No Status: Acute Assessment and plan: Diabetic diet. Low dose sliding scale insulin with ACHS accuchecks. 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 EPCDs-spoke with nurse and reinforced that he must be wearing his EPCDs. - Subjective Interval history: 75 year old male evaluated at bedside. Today he is still alert and oriented to person and time. H thinks he is in [facility]. He states that his pain is about the same since yesterday. He denies chest pain, nausea, vomiting, diarrhea , fever, chills. He denies shortness of breath. Per nursing staff, he had no overnight events and did not require his PRN haloperidol. - Constitutional Vitals: Temp Pulse Resp BP Pulse Ox 97.8 F 82 16 119/61 98 04/09/16 11:45 04/09/16 11:45 04/09/16 11:45 04/09/16 11:45 04/09/16 11:45 General appearance: Present: A&O X 2 (not oriented to place. ), mild distress, no acute distress - Head Head exam: Present: atraumatic, normocephalic - Neck Neck exam general surgery: Present: supple, trachea midline - Respiratory Additional comments: mild wheezing present. - Cardiovascular Cardiovascular exam: Present: RRR, +S1, +S2 - GI/Abdominal GI/Abdominal exam: Present: distended, firm, normal bowel sounds, tenderness Additional comments: surgical scars appear clean, dry, intact. - Additional comments: scrotum is still swollen and bruised but drasticallly improved compared to admission. - Extremities Exam Extremities exam: Absent: cyanotic, pedal edema - Incison Incision: Present: swollen, clean and dry, intact - Back Exam Additional comments: right side of back is still significantly swollen and bruised. - Neurological Exam Neurological exam: Present: alert, no focal deficits, strengths equal and symetr throughout. Absent: speech deficit - Psychiatric Psychiatric exam: Present: anxious Internal Medicine: Result - Labs CBC & Chem 7: 04/09/16 04:50 04/09/16 04:50 Labs: Short CBC 04/09/16 Range/Units 04:50 WBC 5.9 (4.3-11.1) K/mcL Hgb 9.1 L (12.9-16.9) g/dL Hct 28.3 L (37.5-50.1) % Plt Count 101 L (140-400) K/mcL Neutrophils # 4.0 (1.6-8.9) K/mcL BMP 04/09/16 04:50 Sodium 137 Potassium 4.0 Chloride 108 Carbon Dioxide 18 L BUN 84 H Creatinine 2.27 H Glucose 125 H Calcium 8.6 - ABG Interpretation ABG results: ABG ABG pH 7.34 pH Units (7.32-7.45) 04/07/16 11:35 ABG pCO2 30 mmHg (35-45) L 04/07/16 11:35 ABG pO2 86 mmHg (85-104) 04/07/16 11:35 ABG O2 Saturation 96 % (95-98) 04/07/16 11:35 PT/INR, D-dimer PT 15.1 Seconds (9.4-12.1) H 04/06/16 05:33 - Impressions Impressions Scrotum Ultrasound 04/06/16 14:30 IMPRESSION: Diffuse edema of the scrotal sac is present. The testicles are heterogeneous in appearance, which is nonspecific but could also be related to edema. No definite increased vascularity is seen to specifically suggest orchitis. No hydroceles are seen. D/ / 04/06/2016 16:10:03 Mayank Galvez MD / michelle Interpreting Provider: Mayank Galvez MD Chest X-Ray 04/07/16 11:06 IMPRESSION: Vascular congestion. D/ / 04/07/2016 11:37:59 Miguel Perea MD / michelle Interpreting Provider: Miguel Perea MD Consult Discharge Plan - Plan Referrals: Neal Dumont MD [Partnered Physician] - 04/20/16 (coordinate with Dr. Williamson appointment; check wilson catheter) Valentín Williamson DO [Partnered Physician] - 04/20/16 1:50 pm (surgery follow-up) Rashel Bowman MD [Primary Care Provider] - <Jose Velazquez - Last Filed: 04/09/16 17:05> Date of Encounter: 04/09/16 - Assessment and plan (1) Acute metabolic encephalopathy Current Visit: Yes Status: Acute (2) Anemia Current Visit: Yes Status: Acute Qualifiers: Anemia type: other cause Other causes of anemia: acute posthemorrhagic Qualified Code(s): D62 - Acute posthemorrhagic anemia (3) Hematoma Current Visit: Yes Status: Acute (4) Anemia Current Visit: No Status: Chronic Qualifiers: Anemia type: B12 deficiency Vitamin B12 deficiency anemia type: unspecified B12 deficiency Qualified Code(s): D51.9 - Vitamin B12 deficiency anemia, unspecified (5) Thrombocytopenia Current Visit: Yes Status: Chronic (6) DM type 2 (diabetes mellitus, type 2) Current Visit: No Status: Acute Qualifiers: Diabetes mellitus complication status: with kidney complications Diabetes mellitus complication detail: with chronic kidney disease 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 insulin use: with jail use Chronic kidney disease stage: stage 4 (severe) Qualified Code(s): E11.22 - Type 2 diabetes mellitus with diabetic chronic kidney disease; N18.4 - Chronic kidney disease, stage 4 (severe); 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.4 - 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27 H Glucose 125 H Calcium 8.6 - ABG Interpretation ABG results: ABG ABG pH 7.34 pH Units (7.32-7.45) 04/07/16 11:35 ABG pCO2 30 mmHg (35-45) L 04/07/16 11:35 ABG pO2 86 mmHg (85-104) 04/07/16 11:35 ABG O2 Saturation 96 % (95-98) 04/07/16 11:35 PT/INR, D-dimer PT 15.1 Seconds (9.4-12.1) H 04/06/16 05:33 - Impressions Impressions Scrotum Ultrasound 04/06/16 14:30 IMPRESSION: Diffuse edema of the scrotal sac is present. The testicles are heterogeneous in appearance, which is nonspecific but could also be related to edema. No definite increased vascularity is seen to specifically suggest orchitis. No hydroceles are seen. D/ / 04/06/2016 16:10:03 Mayank Galvez MD / [email or web address] Interpreting Provider: Mayank Galvez MD Chest X-Ray 04/07/16 11:06 IMPRESSION: Vascular congestion. D/ / 04/07/2016 11:37:59 Miguel Perea MD / [email or web address] Interpreting Provider: Miguel Perea MD - Attending Attestation I examined this patient and my medical decision-making was reviewed with the Resident Physician on 04/09/16. I agree with the documented findings, disposition and treatment plan as described except to the extent set forth below. Mr. Frye is currently admitted for acute encephalopathy, anemia due to acute blood loss and hematoma. He remains moderate to high risk due to potential for worsening neurologic symptoms and anemia. Mr Frye overall is doing OK today. His BUN is higher and IV fluids have been started. No acute issues overnight. Exam Alert. Comfortable Heart reg No wheeze I/P 1. Acute encephalopathy - slowly improving. 2. CKD 4 - IV fluids tonight and recheck in AM 3. Anemia due to acute blood loss Further diagnoses and plan as above. Anticipate d/c tomorrow.
--- NOTE | 2016-04-09 17:07 | Electrocardiograph Report ---
[address] [address] Test Date: 2016-04-07 Pat Name: Davide Frye Department: 111 Room: 2NE18 Gender: M Tipple Supervisor: : [id number] Requested By: Deep Funez Order Number: [id number] Reading MD: Ev Duong Measurements Intervals [place] Rate: 60 P: OK: 0 QRS: 160 QRSD: 173 T: 78 QT: 494 QTc: 494 Interpretive Statements ELECTRONIC VENTRICULAR PACEMAKER Electronically Signed On 04-09-2016 17:05:05 EST by Ev Duong
[2016-04-10] MEDS: Acetaminophen 325 MG TABLET PO PRN (02:26)
[2016-04-10 02:30] LABS: Basophils % 0.4 %; Eosinophils # 0.3 K/mcL (0.0-0.6); Eosinophils % 4.6 %; Hematocrit 28.3 % (37.5-50.1); Hemoglobin 9.1 g/dL (12.9-16.9); Lymphocytes % 13.2 %; Mean Corpuscular HGB Conc 32.2 g/dL (31.6-35.5); Mean Corpuscular Hemoglobin 28.6 pg (28.0-33.3); Mean Platelet Volume 8.7 fL (9.4-12.4); Monocytes # 0.9 K/mcL (0.0-1.3); Monocytes % 12.2 %; Platelet Count 103 K/mcL (140-400); Red Blood Count 3.18 M/mcL (4.19-5.50); Red Cell Distribution Width 13.7 % (11.5-14.5); Segmented Neutrophils % 68.6 %
[2016-04-10 02:45] LABS: Albumin 2.7 g/dL (3.5-5.0); Albumin/Globulin Ratio 0.9 (1.1-2.2); Alkaline Phosphatase 168 Units/L (38-126); Aspartate Amino Transferase 16 Units/L (5-34); BUN/Creatinine Ratio 38 (6-26); Bilirubin,Total 1.4 mg/dL (0.2-1.2); Calcium 8.6 mg/dL (8.6-10.8); Carbon Dioxide 16 mEq/L (19-29); Chloride 110 mEq/L (98-109); Glucose 145 mg/dL (70-99); Osmolality,Calculated 309 (280-300); Potassium 4.2 mEq/L (3.5-4.5); Sodium 136 mEq/L (136-145); Total Protein 5.7 g/dL (6.0-8.3); eGFR For African Americans 37 (> 60); eGFR For Non-African Americans 30 (> 60)
[2016-04-10 02:52] LABS: Alanine Aminotransferase < 6 Units/L (0-55); Blood Urea Nitrogen 82 mg/dL (8-26)
[2016-04-10] MEDS: 0.9 % Sodium Chloride 1,000 ML IVC SCH (05:16)
[2016-04-10] MEDS: Insulin LISPRO 300 UNITS/3 ML VIAL SQ SCH (07:52)
[2016-04-10] MEDS: Gabapentin 300 MG CAPSULE PO SCH (07:53)
[2016-04-10] MEDS: Thiamine (B-1) 100 MG TABLET PO SCH (07:53)
[2016-04-10] MEDS: Gentamicin OPTH Soln 5 ML BOTTLE RIGHT EYE SCH (07:53)
--- NOTE | 2016-04-10 09:19 | Discharge Summary ---
<Deep Funez - Last Filed: 04/10/16 13:25> Date of Encounter: 04/10/16 Time of Encounter: 09:00 - Discharge Diagnosis (1) Acute metabolic encephalopathy Priority: Secondary Status: Acute (2) Status post hernia repair Priority: Primary Status: Acute (3) Elevated troponin Priority: Secondary Status: Acute (4) Chronic kidney disease Priority: Secondary Status: Chronic Qualifiers: Chronic kidney disease stage: stage 4 (severe) Qualified Code(s): N18.4 - Chronic kidney disease, stage 4 (severe) (5) DM type 2 (diabetes mellitus, type 2) Priority: Secondary Status: Acute Qualifiers: Diabetes mellitus complication status: with kidney complications Diabetes mellitus complication detail: with chronic kidney disease Diabetes mellitus senior living insulin 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 Chronic kidney disease stage: stage 4 (severe) Qualified Code(s): E11.22 - Type 2 diabetes mellitus with diabetic chronic kidney disease; N18.4 - Chronic kidney disease, stage 4 (severe) (6) DVT prophylaxis Priority: Secondary Status: Acute (7) UTI (urinary tract infection) Priority: Secondary Status: Acute Qualifiers: Urinary tract infection type: site unspecified Hematuria presence: without hematuria Qualified Code(s): N39.0 - Urinary tract infection, site not specified (8) Chronic kidney disease, stage IV (severe) Priority: Secondary Status: Acute - Discharge Medications Prescriptions: OxyCODONE/APAP 5/325 [Percocet 5/325 MG] 1 tab PO Q6HR PRN #8 tablet PRN Reason: Pain Cefdinir [Omnicef] 300 mg PO BID #8 capsule Home Medications: GlyBURIDE 5 mg PO BID 02/10/15 [History] Isosorbide MONOnitrate (24 HR) [Imdur] 30 mg PO DAILY 02/10/15 [History] Levothyroxine [Synthroid] 88 mcg PO DAILY 02/10/15 [History] Docusate Sodium [Dok] 100 mg PO BID PRN 11/02/15 [History] Insulin Glargine,Hum.rec.anlog [Lantus Solostar] 40 unit SQ HS PRN 11/02/15 [ History] Gabapentin [Neurontin] 300 mg PO TID PRN 01/21/16 [History] Pravastatin Sodium 10 mg PO HS 01/21/16 [History] Carvedilol 12.5 mg PO QDPC 03/31/16 [History] Furosemide [Lasix] 20 mg PO QAM 03/31/16 [History] Acetaminophen [Tylenol] 650 mg PO Q6HR PRN #0 tablet 04/10/16 [Rx] Cefdinir [Omnicef] 300 mg PO BID #8 capsule 04/10/16 [Rx] Gentamicin OPTH Soln 1 drop RIGHT EYE QID bottle 04/10/16 [Rx] Metolazone 2.5 mg PO DAILY 04/10/16 [History] OxyCODONE/APAP 5/325 [Percocet 5/325 MG] 1 tab PO Q6HR PRN #8 tablet 04/10/16 [ Rx] Thiamine (B-1) [Vitamin B-1] 100 mg PO DAILY tablet 04/10/16 [Rx] Allergies/Adverse Reactions: Allergies Smknfpy-Xku-Cme Reductase Inhibitor [Statins] Adverse Reaction (Verified 12:55) Muscle Pain Date of admission: 04/06/16 06:24 Primary care physician: Rashel Bowman, Consults: 04/06/16 07:36 Consult to Playground Equipment Erector [CONS] Routine Reason for SW Consult: patient and concerned financially about insurance for their care and medication coverage while being hospitalized. Patient needs rehab after discharge. They prefer to go to [facility]. 04/06/16 11:56 Consult to Occupational Therapy [CONS] Routine Comment: Evaluate, develop and implement POC Consult to Physical Therapy [CONS] Routine Comment: Evaluate, develop and implement POC 04/07/16 10:47 Consult to Nephrology [CONS] Stat Consulting Provider: [facility] Reason for Consult: altered mental status, possibly due to uremia. May need dialysis. Call Completed: Yes - Patient Status Disposition: Transfer Hospital Swing Bed Condition: Good Functional capacity at discharge: uses cane/walker Overall status at discharge: patient is progressing back to baseline - Discharge Instructions Follow Up With: Neal Dumont MD [Partnered Physician] - 04/20/16 (coordinate with Dr. Williamson appointment; check wilson catheter) Valentín Williamson DO [Partnered Physician] - 04/20/16 1:50 pm (surgery follow-up) Rashel Bowman MD [Primary Care Provider] - - Diet and Activity Activity: as per physical therapy Diet: diabetic diet, low fat, low cholesterol Interval History: 75 year old male with PMHx of HTN, HLD, DM, CHF, CAD (s/p CABG), Afib (s/p pacemaker/AICD), CKD 4. He recently had a right inguinal hernia repair by Dr. Williamson the week prior. He presented to the ED on 04/05/16 with CC of increased testicular swelling and significant bruising on the right flank and abdomen. General surgery was consulted. After evaluating the patient, they determined that no surgical intervention was needed, and they would continue with supportive care and pain control. Patient had a wilson catheter in place throughout his stay. Ultrasound of the scrotum showed diffuse edema in the scrotal sac, with no evidence of orchitis or hydrocele. Patient's scrotum was elevated on towels to encourage draining. PT/OT was consulted. On day two of his hospital stay, the patient developed altered mental status and agitation. Head CT was negative for any acute intracranial abnormality. Patient's was educated on day/night reorientation and leaving blinds in the room to help with delirium in the hospital setting. Nephrology was consulted to evaluate the patient for possible dialysis and uremia. Nephrology came to evaluate the patient and determined that his altered mental status was likely not secondary to uremia. Patient was found to have a UTI, which may have been a possible cause for his altered mental status. However, it was likely secondary to delirium from hospitalization. He was started on antibiotics for UTI. Throughout the patient's hospital stay, his scrotal swelling decreased significantly, and his altered mental status improved as well. On day of discharge, patient was alert and oriented x3, and progressing back to his baseline. The patient was stable during his entire stay, and remained stable on day of discharge. He was discharged to [facility] bed for rehabilitation. Plan: Follow up with PCP after discharge Follow up with Dr. Williamson and Dr. Dumont finish antibiotic course. Continue to follow instructions per rehab. Hospital course: Mr. Frye is a 75 year old male - Time Spent with Patient Total time spent providing and/or coordinating discharge services: - Constitutional Vitals: Temp Pulse Resp BP Pulse Ox 98.3 F 60 16 122/60 96 04/10/16 07:00 04/10/16 07:00 04/10/16 07:00 04/10/16 07:00 04/10/16 07:00 General appearance: Present: mild distress, A&O X 3, pleasant, no acute distress , answers questions appropriately - Head Head exam: Present: atraumatic, normocephalic - Eye Eye exam: Present: PERRL Pupils: Present: PERRL - Neck Neck exam general surgery: Present: supple, trachea midline - Respiratory Respiratory exam: Present: CTAB - Cardiovascular Cardiovascular exam: Present: RRR, +S1, +S2 - GI/Abdominal GI/Abdominal exam: Present: distended, firm, normal bowel sounds, tenderness, no peritoneal signs Additional comments: significant bruising from recent hernia repair surgery. - exam: Present: scrotal swelling (scrotum is buised and swollen but sinificantly improved since admission. ) - Extremities Exam Extremities exam: Present: normal inspection, radial pulses palpable and symetrical. Absent: cyanotic, pedal edema - Incison Incision: Present: clean and dry, intact - Neurological Exam Neurological exam: Present: alert, oriented X3, no focal deficits Additional comments: still mild confusion present. - Skin Skin exam: Absent: cyanosis <Jose Velazquez - Last Filed: 04/10/16 18:15> Date of Encounter: 04/10/16 - Discharge Diagnosis (1) Acute metabolic encephalopathy Status: Acute (2) Anemia Priority: Secondary Status: Acute Qualifiers: Anemia type: other cause Other causes of anemia: acute posthemorrhagic Qualified Code(s): D62 - Acute posthemorrhagic anemia (3) Hematoma Priority: Secondary Status: Acute (4) Anemia Priority: Secondary Status: Chronic Qualifiers: Anemia type: B12 deficiency Vitamin B12 deficiency anemia type: unspecified B12 deficiency Qualified Code(s): D51.9 - Vitamin B12 deficiency anemia, unspecified (5) Thrombocytopenia Priority: Secondary Status: Chronic (6) DM type 2 (diabetes mellitus, type 2) Status: Acute Qualifiers: Diabetes mellitus complication status: with kidney complications Diabetes mellitus complication detail: with chronic kidney disease 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 Patient needs rehab after discharge. They prefer to go to [facility]. 04/06/16 11:56 Consult to Occupational Therapy [CONS] Routine Comment: Evaluate, develop and implement POC Consult to Physical Therapy [CONS] Routine Comment: Evaluate, develop and implement POC 04/07/16 10:47 Consult to Nephrology [CONS] Stat Consulting Provider: [facility] Reason for Consult: altered mental status, possibly due to uremia. May need dialysis. Call Completed: Yes Hospital course: Mr. Frye is a 75 year old male - Time Spent with Patient Total time spent providing and/or coordinating discharge services: - Constitutional Vitals: Temp Pulse Resp BP Pulse Ox 97.6 F 60 20 112/60 96 04/10/16 12:34 04/10/16 10:36 04/10/16 12:34 04/10/16 12:34 04/10/16 12:34 - Attending Attestation I examined this patient and my medical decision-making was reviewed with the Resident Physician on 04/10/16. I agree with the documented findings, disposition and treatment plan as described except to the extent set forth below. Mr. Frye seems more alert today. He does not remember events of last few days. Denies complaints. Exam Alert. Comfortable Heart reg No wheeze Plan D/C to rehab today
--- NOTE | 2016-04-10 09:32 | Nephrology Progress Note ---
Date of Encounter: 04/10/16 Time of Encounter: 09:10 Subjective Interval history: A/P will stop IV fluids now that oral intake improved. Creatinine at baseline. Watching tv. States ate breakfast, drinking fluids. No new complaints. Objective - Vital Signs Vital signs: Vital Signs Temp Pulse Resp BP Pulse Ox 04/10/16 07:00 98.3 F 60 16 122/60 96 04/10/16 04:45 98.3 F 60 16 109/56 95 04/09/16 20:56 98.3 F 60 16 140/70 97 04/09/16 15:34 99.1 F 60 16 112/54 98 04/09/16 11:45 97.8 F 82 16 119/61 98 Intake and Output 04/09/16 04/10/16 04/10/16 23:59 07:59 15:59 Intake Total 240 / 240 1000 / 1000 Balance 240 / 240 1000 / 1000 Intake: IV Fluids 1000 / 1000 0.9 % Sodium Chloride 1, 1000 / 1000 000 ML @ 80 mls/hr IVC . [id number] [facility] Rx#: [id number] Oral 240 / 240 Other: Meal Dinner Percent of Meal Consumed 0% Blood Glucose* 160 152 - General Appearance General appearance: Present: well-developed, well-nourished, appears started age EENT: Present: mucous membranes moist Neck: Present: no JVD Respiratory: Present: clear Cardiology: Present: no edema, regular rate, regular rhythm Gastrointestinal: Present: normoactive bowel sounds, no tenderness Integumentary: Present: warm and dry Neurologic: Present: alert and oriented x3 Psychiatric: Present: mood/affect appropriate, cooperative - Lab 04/10/16 02:24 04/10/16 02:24 Most recent lab results ABG pH 7.34 pH Units (7.32-7.45) 04/07/16 11:35 ABG pCO2 30 mmHg (35-45) L 04/07/16 11:35 ABG pO2 86 mmHg (85-104) 04/07/16 11:35 ABG HCO3 16.2 mEQ/L (21-27) L 04/07/16 11:35 ABG O2 Saturation 96 % (95-98) 04/07/16 11:35 Calcium 8.6 mg/dL (8.6-10.8) 04/10/16 02:24 Consult Discharge Plan - Plan Referrals: Neal Dumont MD [Partnered Physician] - 04/20/16 (coordinate with Dr. Williamson appointment; check wilson catheter) Valentín Williamson DO [Partnered Physician] - 04/20/16 1:50 pm (surgery follow-up) Rashel Bowman MD [Primary Care Provider] - Prescriptions: OxyCODONE/APAP 5/325 [Percocet 5/325 MG] 1 tab PO Q6HR PRN #8 tablet PRN Reason: Pain
--- NOTE | 2016-04-10 10:29 | Physician Discharge Referral ---
ExtendedCare Referral Info Transfer To: [facility] bed. Provider in Charge after Transfer: PCP Institutional Level of Care: Skilled - Diagnosis (1) Acute metabolic encephalopathy Priority: Secondary Status: Acute (2) Status post hernia repair Priority: Primary Status: Acute (3) Elevated troponin Priority: Secondary Status: Acute (4) Chronic kidney disease Priority: Secondary Status: Chronic (5) DM type 2 (diabetes mellitus, type 2) Priority: Secondary Status: Acute (6) DVT prophylaxis Priority: Secondary Status: Acute (7) UTI (urinary tract infection) Priority: Secondary Status: Acute (8) Chronic kidney disease, stage IV (severe) Priority: Secondary Status: Acute - Transfer Medications Prescriptions: OxyCODONE/APAP 5/325 [Percocet 5/325 MG] 1 tab PO Q6HR PRN #8 tablet PRN Reason: Pain Cefdinir [Omnicef] 300 mg PO BID #8 capsule Home Medications: GlyBURIDE 5 mg PO BID 02/10/15 [History] Isosorbide MONOnitrate (24 HR) [Imdur] 30 mg PO DAILY 02/10/15 [History] Levothyroxine [Synthroid] 88 mcg PO DAILY 02/10/15 [History] Docusate Sodium [Dok] 100 mg PO BID PRN 11/02/15 [History] Insulin Glargine,Hum.rec.anlog [Lantus Solostar] 0 - 40 unit SQ HS PRN 11/02/15 [History] Gabapentin [Neurontin] 300 mg PO TID PRN 01/21/16 [History] Pravastatin Sodium 10 mg PO HS 01/21/16 [History] Carvedilol 12.5 mg PO BID 03/31/16 [History] Furosemide [Lasix] 20 mg PO QAM 03/31/16 [History] Acetaminophen [Tylenol] 650 mg PO Q6HR PRN #0 tablet 04/10/16 [Rx] Cefdinir [Omnicef] 300 mg PO BID #8 capsule 04/10/16 [Rx] Gentamicin OPTH Soln 1 drop RIGHT EYE QID bottle 04/10/16 [Rx] OxyCODONE/APAP 5/325 [Percocet 5/325 MG] 1 tab PO Q6HR PRN #8 tablet 04/10/16 [ Rx] Thiamine (B-1) [Vitamin B-1] 100 mg PO DAILY tablet 04/10/16 [Rx] Allergies/Adverse Reactions: Allergies Jjocmfe-Jxd-Vpo Reductase Inhibitor [Statins] Adverse Reaction (Verified 12:55) Muscle Pain - Respiratory Orders Smoking Cessation: Smoking cessation has been advised. For more information, call the [place] Tobacco Quit Line at 6-782-LSBZ-NOW. CERTIFICATION: I certify that the transfer of the above named patient to an Extended Care Facility is necessary for the continuing treatment of the diagnosis listed. The above information is true and accurate reflection of patient's current condition. Confidential - Redisclosure prohibited without a patient's written consent.
[2016-04-10 12:35] VITALS: BP 112/60
== END 2016-04-10 12:37 | disposition other institution (70) | DRG 919 ==
LOC: EMEROO 14:31 → 2NENU 14:31 → SUATTDRO 04-06 06:24 → 2NENU 04-07 07:38
PROVIDERS: ADMIT Nurse Practitioner Family; ATTEND Internal Medicine

== ENCOUNTER 2016-05-01 17:44 | Inpatient (IN) ==
[2016-05-01 18:24] LABS: Basophils % 0.6 %; Eosinophils # 0.4 K/mcL (0.0-0.6); Eosinophils % 7.4 %; Hemoglobin 9.3 g/dL (12.9-16.9); Immature Granulocytes % 0.4 % (0-4); Lymphocytes # 0.6 K/mcL (0.6-4.6); Lymphocytes % 12.4 %; Mean Corpuscular Volume 90.4 fL (83.0-100.0); Mean Platelet Volume 9.6 fL (9.4-12.4); Monocytes # 0.4 K/mcL (0.0-1.3); Monocytes % 8.4 %; Neutrophils # 3.6 K/mcL (1.6-8.9); Platelet Count 103 K/mcL (140-400); Red Blood Count 3.32 M/mcL (4.19-5.50); Red Cell Distribution Width 15.9 % (11.5-14.5); Segmented Neutrophils % 70.8 %
[2016-05-01 18:29] LABS: INR 1.3; Prothrombin Time 13.9 Seconds (9.4-12.1)
[2016-05-01 18:32] LABS: Activated Partial Thrombo Time 28.7 Seconds (26.0-36.0)
[2016-05-01 18:38] LABS: Albumin 3.2 g/dL (3.5-5.0); Bilirubin,Indirect 0.9 mg/dL (0.0-1.2); Bilirubin,Total 1.9 mg/dL (0.2-1.2); Calcium 8.7 mg/dL (8.6-10.8); Globulin 3.3 g/dL (2.4-3.5); Total Protein 6.5 g/dL (6.0-8.3)
--- NOTE | 2016-05-01 18:57 | Emergency Department Note ---
Disposition Clinical Impression: Congestive heart failure (CHF), Acute delirium Disposition: Admitted As Inpatient Referrals: NO,PCP [Primary Care Provider] - Forms: ED Satisfaction Letter Altered Mental Status HPI - General Chief Complaint: ED Headache Stated Complaint: headache Time Seen by Provider: 05/01/16 17:46 Source: family (), EMS Mode of arrival: EMS Limitations: altered mental status Nursing Notes Reviewed: Yes Vital Signs Reviewed: Yes - History of Present Illness HPI Narrative: Patient comes from the correction with agitation and worsening of his delirium. The patient was also complaining of shortness of breath and was tachypneic prior to arrival. He states he had a mild headache but now is just short of breath. He was recently seen at [facility] for acute encephalopathy. His states that ever since his surgery he has had issues with delirium and is never went back to his baseline since. Right now the patient is alert to person only and complaining of mild shortness of breath. Timing confirmed by: family member, caregiver Consistency of Symptoms: waxing and waning, getting worse Associated symptoms: Reports: shortness of breath - Related Data Home Medications Medication Instructions Recorded Confirmed GlyBURIDE 5 mg PO BID 02/10/15 04/20/16 Isosorbide MONOnitrate (24 HR) 30 mg PO DAILY 02/10/15 04/28/16 [Imdur] Levothyroxine [Synthroid] 88 mcg PO DAILY 02/10/15 04/28/16 Pravastatin Sodium 10 mg PO HS 01/21/16 04/28/16 Carvedilol 12.5 mg PO BID 03/31/16 04/28/16 Furosemide [Lasix] 40 mg PO BID 03/31/16 04/28/16 Insulin Glargine,Hum.rec.anlog 40 units SQ HS 04/20/16 04/28/16 [Lantus Solostar] Allergies Allergy/AdvReac Type Severity Reaction Status Date / Time Stdzxay-Plu-Ofj Reductase AdvReac Muscle Pain Verified 05/01/16 17:52 Inhibitor [Statins] All systems ED: reviewed and negative except as stated. Constitutional: Denies: chills, weakness Cardiovascular: Denies: chest pain Gastrointestinal: Denies: nausea, vomiting Past Medical History - Past Medical History Source: patient, old records reviewed, obtained from family (), nursing notes reviewed Medical history: Reports: atrial fibrillation, cancer, CHF, CVA, diabetes, hyperlipidemia, hypertension, myocardial infarction, renal disease, other Surgical history: Reports: coronary bypass (CABG), other, pacemaker Psychiatric history: Reports: no psych history - Social History Smoking Status: Former smoker Smokeless Tobacco Status: No Alcohol use: Reports: none Drug use: Reports: none Physical Exam - General Limitations: altered mental status General appearance: in no apparent distress - Head Head exam: atraumatic, normocephalic, normal inspection - Eye Eye exam: Present: normal appearance, PERRL, EOMI - ENT ENT exam: normal exam, normal oropharynx, mucous membranes moist - Neck Neck exam: Present: normal inspection, full ROM, trachea midline - Chest Chest inspection: Present: normal inspection, symmetric chest wall rise - Respiratory Respiratory exam: Present: other (bibasilar rales) - Cardiovascular Cardiovascular exam: Present: regular rate, normal rhythm, normal heart sounds, other (1-2+ pitting edema) - Abdominal Exam Abdominal exam: Present: soft, Non-Tender. Absent: tenderness, distention, guarding, rebound, rigidity - Neurological Exam Neurological exam: Present: alert - Psychiatric Psychiatric exam: Present: agitated - Skin Skin exam: Present: warm, dry, intact, normal color Course Vital Signs Temperature 97.6 F 05/01/16 17:47 Pulse Rate 60 05/01/16 17:47 Respiratory Rate 18 05/01/16 17:47 Blood Pressure 135/88 05/01/16 17:47 O2 Sat by Pulse Oximetry 100 05/01/16 17:47 Temperature 97.6 F 05/01/16 17:47 Pulse Rate 60 05/01/16 17:47 Respiratory Rate 18 05/01/16 17:47 Blood Pressure 135/88 05/01/16 17:47 O2 Sat by Pulse Oximetry 100 05/01/16 17:47 Oxygen Delivery Oxygen Delivery Nasal Cannula Altered Mental Status - Differential Diagnosis Likely: altered mental status, delirium, dementia, hypoglycemia, subarachnoid hemorrhage, sepsis - Medical Records Medical records reviewed: Yes I reviewed the patient's medical records. - Lab Data Lab results reviewed: Yes I reviewed the patient's lab results. Result diagrams: 05/01/16 18:15 05/01/16 18:15 Lab Results 05/01/16 05/01/16 05/01/16 Range/Units 18:15 18:15 18:15 WBC 5.0 (4.3-11.1) K/mcL RBC 3.32 L (4.19-5.50) M/mcL Hgb 9.3 L (12.9-16.9) g/dL Hct 30.0 L (37.5-50.1) % MCV 90.4 (83.0-100.0) fL MCH 28.0 (28.0-33.3) pg MCHC 31.0 L (31.6-35.5) g/dL RDW 15.9 H (11.5-14.5) % Plt Count 103 L (140-400) K/mcL MPV 9.6 (9.4-12.4) fL Immature Gran % 0.4 (0-4) % Seg Neutrophils % 70.8 % Lymphocytes % 12.4 % Monocytes % 8.4 % Eosinophils % 7.4 % Basophils % 0.6 % Neutrophils # 3.6 (1.6-8.9) K/mcL Lymphocytes # 0.6 (0.6-4.6) K/mcL Monocytes # 0.4 (0.0-1.3) K/mcL Eosinophils # 0.4 (0.0-0.6) K/mcL Basophils # 0.0 (0.0-0.2) K/mcL PT 13.9 H (9.4-12.1) Seconds INR 1.3 APTT 28.7 (26.0-36.0) Seconds Sodium 141 (136-145) mEq/L Potassium 4.0 (3.5-4.5) mEq/L Chloride 109 (98-109) mEq/L Carbon Dioxide 21 (19-29) mEq/L BUN 57 H (8-26) mg/dL Creatinine 2.16 H (0.72-1.25) mg/dL Est GFR ( Amer) 37 L (> 60) Est GFR (Non-Af Amer) 30 L (> 60) BUN/Creatinine Ratio 26 (6-26) Glucose 190 H (70-99) mg/dL Calculated Osmolality 313 H (280-300) Calcium 8.7 (8.6-10.8) mg/dL Total Bilirubin 1.9 H (0.2-1.2) mg/dL Direct Bilirubin 1.0 H (0.0-0.5) mg/dL Indirect Bilirubin 0.9 (0.0-1.2) mg/dL AST 14 (5-34) Units/L ALT 6 (0-55) Units/L Alkaline Phosphatase 155 H (38-126) Units/L Troponin I (0-0.03) ng/mL B-Natriuretic Peptide (0-100) pg/mL Serum Total Protein 6.5 (6.0-8.3) g/dL Albumin 3.2 L (3.5-5.0) g/dL Globulin 3.3 (2.4-3.5) g/dL Albumin/Globulin Ratio 1.0 L (1.1-2.2) 05/01/16 05/01/16 Range/Units 18:15 18:15 WBC (4.3-11.1) K/mcL RBC (4.19-5.50) M/mcL Hgb (12.9-16.9) g/dL Hct (37.5-50.1) % MCV (83.0-100.0) fL MCH (28.0-33.3) pg MCHC (31.6-35.5) g/dL RDW (11.5-14.5) % Plt Count (140-400) K/mcL MPV (9.4-12.4) fL Immature Gran % (0-4) % Seg Neutrophils % % Lymphocytes % % Monocytes % % Eosinophils % % Basophils % % Neutrophils # (1.6-8.9) K/mcL Lymphocytes # (0.6-4.6) K/mcL Monocytes # (0.0-1.3) K/mcL Eosinophils # (0.0-0.6) K/mcL Basophils # (0.0-0.2) K/mcL PT (9.4-12.1) Seconds INR APTT (26.0-36.0) Seconds Sodium (136-145) mEq/L Potassium (3.5-4.5) mEq/L Chloride (98-109) mEq/L Carbon Dioxide (19-29) mEq/L BUN (8-26) mg/dL Creatinine (0.72-1.25) mg/dL Est GFR ( Amer) (> 60) Est GFR (Non-Af Amer) (> 60) BUN/Creatinine Ratio (6-26) Glucose (70-99) mg/dL Calculated Osmolality (280-300) Calcium (8.6-10.8) mg/dL Total Bilirubin (0.2-1.2) mg/dL Direct Bilirubin (0.0-0.5) mg/dL Indirect Bilirubin (0.0-1.2) mg/dL AST (5-34) Units/L ALT (0-55) Units/L Alkaline Phosphatase (38-126) Units/L Troponin I 0.06 H* (0-0.03) ng/mL B-Natriuretic Peptide 1374 H (0-100) pg/mL Serum Total Protein (6.0-8.3) g/dL Albumin (3.5-5.0) g/dL Globulin (2.4-3.5) g/dL Albumin/Globulin Ratio (1.1-2.2) - Radiology Data Radiology results reviewed: Yes I reviewed the patient's radiology results. TPA Checklist - LKW: 3-4.5 hrs Add. Contraindications Patient/family understanding: The patient/family members have been counseled and understood the risk, benefit , and alternatives of treatment.
[2016-05-01 21:02] LABS: Bilirubin,Urine Negative (Negative); Blood,Urine Negative (Negative); Clarity,Urine Clear (Clear); Color,Urine Yellow (Yellow); Glucose,Urine (UA) Normal (Normal); Ketones,Urine Negative (Negative); Leukocyte Esterase,Urine Negative (Negative); Nitrite,Urine Negative (Negative); Protein,Urine Trace mg/dL (Neg-Trace); Specific Gravity,Urine 1.015 (1.010-1.025); Urobilinogen,Urine Normal (Normal)
[2016-05-01 21:04] LABS: Bacteria,Urine None Seen per hpf (None-Few); Hyaline Casts,Urine None Seen per lpf (None-Few); RBC,Urine 0-3 per hpf (0-3); Squamous Epithelial Cell,Urine Many per lpf (None-Few); WBC,Urine 0-3 per hpf (0-3)
[2016-05-02] MEDS ORDERED: Naloxone 0.4 MG/ML INJ IVP PRN (03:15)
[2016-05-02] MEDS ORDERED: D5% in Water 1,000 ML IV PRN (03:20)
[2016-05-02] MEDS ORDERED: Dextrose Gel 15 GM PO PRN ×2 (03:20)
[2016-05-02] MEDS ORDERED: *HR* Dextrose 50 % in Water (Syg) 50 ML SYRINGE IVP PRN (03:20)
--- NOTE | 2016-05-02 03:23 | Internal Med History&Physical ---
Date of Encounter: 05/02/16 Time of Encounter: 01:00 Assessment and Plan (1) Acute exacerbation of CHF (congestive heart failure) Current visit: Yes Status: Acute Patient has elevated BNP. However patient also has chronic kidney disease stage IV. We will treat him with intravenous Lasix. Fluid restriction to 1.5 litres per day. Daily weights. Monitor I/O. Will obtain echocardiogram to evaluate LV ejection fraction. Qualifiers: Congestive heart failure type: diastolic Qualified Code(s): I50.33 - Acute on chronic diastolic (congestive) heart failure (2) Acute encephalopathy Current visit: Yes Status: Acute He had a negative workup recently. We will obtain MRI of the brain to exclude recent CVA. Other possibility is dementia. We will consult neurologist for further advice (3) Pancytopenia Current visit: Yes Status: Chronic Follows with the plastering supervisor/oncologist. Monitor counts (4) Cirrhosis Current visit: Yes Status: Chronic Ammonia level is normal Qualifiers: Hepatic cirrhosis type: unspecified hepatic cirrhosis Ascites presence: with ascites Qualified Code(s): K74.60 - Unspecified cirrhosis of liver (5) CKD (chronic kidney disease) stage 4, GFR 15-29 ml/min Current visit: Yes Status: Chronic Avoid nephrotoxics (6) Hypothyroid Current visit: Yes Status: Chronic Continue synthroid Qualifiers: Hypothyroidism type: unspecified Qualified Code(s): E03.9 - Hypothyroidism , unspecified (7) DVT prophylaxis Current visit: Yes Status: Acute Subcutaneous heparin Internal Medicine - H&P: HPI Chief complaint: Shortness of breath; confusion Admitted From: Emergency Dept Plans for Post Hospital Care: Transfer Inp Rehab Fac History of present illness: Mr. Frye is a 75 year old male with h/o hypertension, hyperlipidemia, diabetes , CHF (remote echocardiogram reported LVEF of 55%), coronary artery disease status post CABG, atrial fibrillation, pacemaker/AICD, chronic kidney disease - stage IV, gout, cirrhosis of liver based on imaging, chronic anemia / pancytopenia (follows with hematology / oncology), hypothyroidism, recent Robotic right inguinal hernia repair with mesh (done by Dr Williamson on 03/31/16), which was done as an outpatient procedure. Apparently patient was at his baseline mental status for the surgery. He was admitted to [facility] on 04/05/16, for inguinal hematoma which was managed conservatively. During that hospitalization he was thought to have confusion / metabolic encephalopathy which was reportedly improved at discharge time on 04/10. He was discharged to swing bed at [facility]. He was sent to [facility] on 04/20/16 for chest pain and confusion. He was discharged from [place] on 04/23/16. Discharge summary reported - acute encephalopathy: CT head, TSH, B12, folate, ammonia were unremarkable. Suspected underlying dementia and contribution from gabapentin. Pt was evaluated by his PCP and polypharmacy was suspected to be contributing to his confusion and hence some other medications were discontinued. Patient presented to the emergency department with shortness of breath. He denies cough, expectoration, chest pain, abdominal cane pain, dysuria, hematuria or bowel problems. There is also concerned that time his agitation is worsening. He was evaluated in the emergency department and was thought to have CHF and acute delirium. He is admitted to the hospitalist service for further workup and management. Past Med Surg Social Fam HX - Past Medical History Medical history: atrial fibrillation, cancer, CHF, CVA, diabetes, hyperlipidemia , hypertension, myocardial infarction, renal disease, other Psychiatric history: no psych history - Past Surgical History Surgical History: coronary bypass (CABG), other, pacemaker - Social History Smoking Status: Former smoker Smokeless Tobacco Status: No Alcohol use: none Drug use: none - Family History Father Living Status: Internal Medicine - H&P: Meds GlyBURIDE 5 mg PO BID 02/10/15 [History] Isosorbide MONOnitrate (24 HR) [Imdur] 30 mg PO DAILY 02/10/15 [History] Levothyroxine [Synthroid] 88 mcg PO DAILY 02/10/15 [History] Pravastatin Sodium 10 mg PO HS 01/21/16 [History] Carvedilol 12.5 mg PO BID 03/31/16 [History] Furosemide [Lasix] 40 mg PO BID 03/31/16 [History] Insulin Glargine,Hum.rec.anlog [Lantus Solostar] 40 units SQ HS 04/20/16 [ History] Allergies Dwxjfzu-Ocx-Xlq Reductase Inhibitor [Statins] Adverse Reaction (Verified 17:52) Muscle Pain All Systems PM: A 10-system review of systems was performed and is negative for pertinent findings except as documented above in the HPI. - Constitutional Vitals: Temp Pulse Resp BP Pulse Ox 97.6 F 60 19 137/73 100 05/01/16 22:30 05/01/16 17:47 05/01/16 22:30 05/01/16 22:30 05/01/16 22:30 Exam: General: Not in acute distress at the time of my evaluation. Confused HEENT: Oral mucosa is moist. No conjunctival palor or scleral icterus Neck: No obvious neck swellings Lungs: Bilateral basal crackles Cardiac: Regular rate and rhythm. No significant murmurs Abdomen: Soft, non tender. Bowel sounds present Genitourinary: No wilson catheter Neurological: Confused. Oriented x 1 (to person). He thinks he is in [place]; year is 1937. No gross localizing deficits. Hard of hearing Psych: Not aggressive at the time of my evaluation. Extremities: B/L mild leg edema present Skin: No generalized rash Internal Med - H&P Results - Labs CBC & Chem 7: 05/01/16 18:15 05/01/16 18:15 - EKG Data -: EKG Interpreted by Myself - EKG Data EKG comments: Paced rhythm 05/02/16 05:49 - Impressions ITS Impressions Head CT 05/01/16 17:47 IMPRESSION: No hemorrhage or mass There is underlying atrophy with severe periventricular and frontal parietal white matter disease, likely due to small-vessel ischemic change, similar to prior Chronic opacification of the left maxillary sinus D/ / Gaetano Florian MD / Gaetano Florian MD Interpreting Provider: Gaetano Florian MD Chest X-Ray 05/01/16 18:09 IMPRESSION: Cardiomegaly with mild congestive changes. Similar findings are noted on the previous exam. D/ / 05/01/2016 18:31:34 Tk Lam MD / tim Interpreting Provider: Tk Lam MD
[2016-05-02] MEDS: *HR* Heparin 5,000 UNIT/ML VIAL SQ SCH ×3 (06:03→23:44)
[2016-05-02] MEDS: Furosemide 40 MG/4 ML VIAL IVP SCH ×2 (08:39→16:45)
[2016-05-02] MEDS: Insulin LISPRO 300 UNITS/3 ML VIAL SQ SCH ×4 (08:42→21:08)
[2016-05-02] MEDS: *HR* OxyCODONE/APAP 5/325 TABLET PO PRN ×2 (10:47→21:20)
--- NOTE | 2016-05-02 10:54 | Neurology - Consult Note ---
Date of Encounter: 05/02/16 Time of Encounter: 09:20 Assessment and Plan (1) Acute encephalopathy Current Visit: Yes Status: Acute This patient who has history of multiple medical conditions as well as been on multiple medications has been in and out of the hospital for the last several months, and continued to have these fluctuating mental status As per records he already had a complete workup at different facilities Symptoms history seems to be quite typical of metabolic toxic encephalopathy Along with features of dementia perhaps gotten worse ALONG with These frequent change of environment and multiple medical condition. Do not think that repeating any of the blood work is going to be helpful at the same time do not think that he would require any further imaging studies has he had already enough of those. I suspect that he may continue to have these fluctuating mental status I would recommend that we should continue to treat the underlying metabolic and infectious etiology and at the same time try to avoid any narcotics or any other medications that could make his mental status worse. History of Present Illness HPI: Mr. Frye is a 75 year old male with h/o multiple medicla conditions, including hypertension, hyperlipidemia, diabetes, CHF (remote echocardiogram reported LVEF of 55%), coronary artery disease status post CABG, atrial fibrillation, pacemaker/AICD, chronic kidney disease - stage IV, gout, cirrhosis of liver,chronic anemia / pancytopenia, hypothyroidism, admitted to [facility] recently after inguinal hernia /hematoma noted to be confused at that admission which was reportedly improved at discharge time on 04/10/16. later he was sent to [facility] on chest pain and confusion, at discharged from [facility] on 04/23/16 with the diagnosis of acute encephalopathy: CT head, TSH, B12, folate, ammonia were unremarkable. Suspected underlying dementia and contribution from medicaiton, like gabapentin. Pt was evaluated by his PCP and polypharmacy was suspected to be contributing to his confusion and hence some other medications were discontinued. Patient presented to the emergency department with shortness of breath. There is also concerned that time his agitation is worsening. He was evaluated in the emergency department and was thought to have CHF and acute delirium. He is admitted to the hospitalist service for further workup and management. and neurology services were consulted Past Med Surg Social Fam HX - Past Medical History Medical history: atrial fibrillation, cancer, CHF, CVA, diabetes, hyperlipidemia , hypertension, myocardial infarction, renal disease, other Psychiatric history: no psych history - Past Surgical History Surgical History: coronary bypass (CABG), other, pacemaker - Social History Smoking Status: Former smoker Smokeless Tobacco Status: No Alcohol use: none Drug use: none - Family History Father Living Status: Medications and Allergies GlyBURIDE 5 mg PO BID 02/10/15 [History] Isosorbide MONOnitrate (24 HR) [Imdur] 30 mg PO DAILY 02/10/15 [History] Levothyroxine [Synthroid] 88 mcg PO DAILY 02/10/15 [History] Pravastatin Sodium 10 mg PO HS 01/21/16 [History] Carvedilol 12.5 mg PO BID 03/31/16 [History] Furosemide [Lasix] 40 mg PO BID 03/31/16 [History] Insulin Glargine,Hum.rec.anlog [Lantus Solostar] 40 units SQ HS 04/20/16 [ History] Allergies Grkhvhh-Fvc-Cxg Reductase Inhibitor [Statins] Adverse Reaction (Verified 17:52) Muscle Pain All Systems: A 10-system review of systems was performed and is negative for pertinent findings except as documented above in the HPI. Physical Examination - Vital Signs Vital Signs: Initial Vital Signs Temp Pulse Resp BP Pulse Ox 97.6 F 60 18 135/88 100 05/01/16 17:47 05/01/16 17:47 05/01/16 17:47 05/01/16 17:47 05/01/16 17:47 - Exam Exam: AAO X3, HEART S 1 S2 AUDIBLE, CRACKLES, LUNGS: DECREASE SOUNDS, EXT; PEDAL EDema ++ - Constitutional General appearance: comfortable - Neurologic Detailed motor examination: grossly full strength in all extremities Reflexes: Biceps: 1+, Triceps: 1+, Brachioradialis: 1+, Patella: 1+, Achilles: 1 + Mental Status Examination: awake, alert, oriented to person, oriented to place, follows simple commands, localizes noxious stimulation Cranial nerve examination: PERRL, EOMI, no facial asymmetry is present Results - Laboratory Findings CBC and BMP: 05/01/16 18:15 05/01/16 18:15 Abnormal lab findings: Abnormal lab results RBC 3.32 M/mcL (4.19-5.50) L 05/01/16 18:15 Hgb 9.3 g/dL (12.9-16.9) L 05/01/16 18:15 Hct 30.0 % (37.5-50.1) L 05/01/16 18:15 MCHC 31.0 g/dL (31.6-35.5) L 05/01/16 18:15 RDW 15.9 % (11.5-14.5) H 05/01/16 18:15 Plt Count 103 K/mcL (140-400) L 05/01/16 18:15 PT 13.9 Seconds (9.4-12.1) H 05/01/16 18:15 BUN 57 mg/dL (8-26) H 05/01/16 18:15 Creatinine 2.16 mg/dL (0.72-1.25) H 05/01/16 18:15 Est GFR ( Amer) 37 (> 60) L 05/01/16 18:15 Est GFR (Non-Af Amer) 30 (> 60) L 05/01/16 18:15 Glucose 190 mg/dL (70-99) H 05/01/16 18:15 Calculated Osmolality 313 (280-300) H 05/01/16 18:15 Total Bilirubin 1.9 mg/dL (0.2-1.2) H 05/01/16 18:15 Direct Bilirubin 1.0 mg/dL (0.0-0.5) H 05/01/16 18:15 Alkaline Phosphatase 155 Units/L (38-126) H 05/01/16 18:15 Troponin I 0.06 ng/mL (0-0.03) H* 05/01/16 18:15 B-Natriuretic Peptide 1374 pg/mL (0-100) H 05/01/16 18:15 Albumin 3.2 g/dL (3.5-5.0) L 05/01/16 18:15 Albumin/Globulin Ratio 1.0 (1.1-2.2) L 05/01/16 18:15 Ur Squamous Epith Cells Many per lpf (None-Few) H 05/01/16 20:50 Consult Discharge Plan - Plan Referrals: NO,PCP [Primary Care Provider] -
--- NOTE | 2016-05-02 11:09 | Internal Med Progress Note ---
Date of Encounter: 05/02/16 Time of Encounter: 09:45 - Assessment and plan (1) Acute metabolic encephalopathy Current Visit: Yes Status: Acute Assessment and plan: Possibly secondary to CHF Also may be progression of dementia Neurology input appreciated, no further work up (2) Acute exacerbation of CHF (congestive heart failure) Current Visit: Yes Status: Acute Assessment and plan: Continue lasix Continue strict intake/output monitoring daily weights Follow ECHO Qualifiers: Congestive heart failure type: diastolic Qualified Code(s): I50.33 - Acute on chronic diastolic (congestive) heart failure (3) DVT prophylaxis Current Visit: Yes Status: Acute Assessment and plan: Heparin SQ (4) CKD (chronic kidney disease) stage 4, GFR 15-29 ml/min Current Visit: Yes Status: Chronic Assessment and plan: Chronic, stable (5) Cirrhosis Current Visit: Yes Status: Chronic Assessment and plan: Chronic, stable, ammonia level WNL, no asterixis Qualifiers: Hepatic cirrhosis type: unspecified hepatic cirrhosis Ascites presence: with ascites Qualified Code(s): K74.60 - Unspecified cirrhosis of liver (6) Hypothyroid Current Visit: Yes Status: Chronic Assessment and plan: Chronic stale, TSH WNL Continue synthroid Qualifiers: Hypothyroidism type: unspecified Qualified Code(s): E03.9 - Hypothyroidism , unspecified (7) Pancytopenia Current Visit: Yes Status: Chronic Assessment and plan: Chronic, from liver disease, stable (8) DM type 2 (diabetes mellitus, type 2) Current Visit: Yes Status: Chronic Assessment and plan: FS acceptable Continue sliding scale Qualifiers: Diabetes mellitus complication status: with kidney complications Diabetes mellitus complication detail: with chronic kidney disease Diabetes mellitus senior living insulin use: unspecified continuous churn buttermaker insulin use status Chronic kidney disease stage: stage 4 (severe) Qualified Code(s): E11.22 - Type 2 diabetes mellitus with diabetic chronic kidney disease; N18.4 - Chronic kidney disease, stage 4 (severe) (9) Left leg pain Current Visit: Yes Status: Acute Assessment and plan: Left leg tender, unable to discern if he is being honest about his pain However, he is hyperventilating and complaining, will give pain medications Ankle X-ray done revealed soft tissue swelling over the lateral malleolus with no convincing acute osseous abnormality. Questionable linear lucency in the distal fibula is favored be artifact but if patient has persistent pain, it may reperesent a nondispaced fracture Will confirm findings with family and decide to consult orthopedics based on their response - Subjective Interval history: 75 y/o M Seen and evaluated at bedside he has a PMH of CKD 4, Cirrhosis, Pancytopenia, Hypothyroidism, HLF, CHFpEF Admitted for management of acute encephaolathy , possibly a progression if his dementia and possibly secondary to CHF He is seen at bedside hyperventilating and complaining of L ankle pain He yells when his L leg is touched This I confirmed with RN His main complain on admission was SOB Otherwise he is calm and communicative - Constitutional Vitals: Temp Pulse Resp BP Pulse Ox 98.1 F 60 40 127/70 98 05/02/16 07:11 05/02/16 07:11 05/02/16 07:11 05/02/16 07:11 05/02/16 07:11 General appearance: Present: A&O X 1, pleasant, no acute distress - Head Head exam: Present: atraumatic, normocephalic - Eye Eye exam: Present: PERRL, conjuntiva pink, sclera anicteric Pupils: Present: PERRL - Neck Neck exam general surgery: Present: supple, trachea midline. Absent: lymphadenopathy - Respiratory Respiratory exam: Present: rales. Absent: accessory muscle use, rhonchi, wheezes Additional comments: Bibasilar rales - Cardiovascular Cardiovascular exam: Present: RRR, +S1, +S2. Absent: diastolic murmur, gallop, rubs, systolic murmur - GI/Abdominal GI/Abdominal exam: Present: normal bowel sounds, soft, no peritoneal signs. Absent: distended, tenderness - Extremities Exam Extremities exam: Present: pedal edema (Trace), warm, radial pulses palpable and symetrical. Absent: calf tenderness, cyanotic Additional comments: Patient screams when his left ankle is touched and endorsed a history of fall, even though there is no mention of this in his X-ray - Neurological Exam Neurological exam: Present: alert, CN II-XII intact, no focal deficits. Absent : oriented X3, pronater drift, facial droop, speech deficit - Skin Skin exam: Present: dry Internal Medicine: Result - Labs CBC & Chem 7: 05/01/16 18:15 05/01/16 18:15 - ABG Interpretation ABG results: PT/INR, D-dimer PT 13.9 Seconds (9.4-12.1) H 05/01/16 18:15 Consult Discharge Plan - Plan Referrals: NO,PCP [Primary Care Provider] -
[2016-05-02] MEDS ORDERED: *HR* LORazepam 0.5 MG TABLET ONE (12:01)
[2016-05-02] MEDS: *HR* LORazepam 0.5 MG TABLET PO PRN (21:09)
[2016-05-02] MEDS: Pravastatin Sodium 10 MG PO SCH (21:26)
--- NOTE | 2016-05-02 21:48 | ECHO - Doppler Report ---
Echocardiogram Name: Davide Frye Date of Study: 05/02/2016 Date: 1940 Ht: 68.0 in Medical Record#: [id number] Age: 75 Wt: 170.0 lb Gender: Male BSA: 1.91 Order #: [id number] Location: [facility] Room #: 2A36 Reading Physician: Дмитрий Soria DO, SANTO, CAROLYN DOBBS Contact Lens Lathe Operator: Amalia Lambert RDCS Ordering Physician: Parmjit Long MD Primary Physician: Rashel Bowman MD Indications: Congestive heart failure Impressions: LVEF 50%. Normal LV chamber size and wall thickness. Atypical septal motion consistent with pacemaker/postoperative septum. Indeterminate diastolic function. Right ventricle was not well visualized. Grossly, it appears to demonstrate normal function. Moderate-severe tricuspid regurgitation. Severe pulmonary hypertension. Estimated RVSP is 61 mmHg. A device lead was visualized in the right atrium and right ventricle. Technically sub-optimal due to clinical status. Left Ventricular Wall Motion: Rest Echo Findings All wall segments showed normal motion. Findings: Study Quality * Technically sub-optimal due to clinical status. ECG Findings * Paced rhythm. Left Ventricle * LVEF 50%. * Normal LV chamber size and wall thickness. * Atypical septal motion consistent with a paceamaker/postoperative septum. * Indeterminate diastolic function. Right Ventricle * Right ventricle was not well visualized. Grossly, it appears to demonstrate normal function. Left Atrium * Moderate to severely dilated left atrium. Right Atrium * Moderately dilated right atrium. Interatrial Septum * Interatrial septum not well evaluated. Aortic Valve * Trileaflet aortic valve. * Mildly sclerotic aortic valve leaflets. * No aortic regurgitation. * No aortic stenosis. Mitral Valve * Mild mitral annular calcification * Mildly thickened mitral valve leaflets. * Trace mitral regurgitation. * No mitral stenosis. Tricuspid Valve * Normal tricuspid valve structure. * Moderate-severe tricuspid regurgitation. * Severe pulmonary hypertension. * Estimated RVSP is 61 mmHg. Pulmonic Valve * Normal pulmonic valve structure and function. * Trace pulmonic regurgitation. Aorta * Normally sized aortic root. Pericardium * The pericardium appears normal. IVC * The IVC is not dilated. Response to Valsalva not well appreciated. Device lead * A device lead was visualized in the right atrium and right ventricle. Pulmonary Artery * Pulmonary artery not well visualized. History Hypertension Diabetes Hypercholesteremia Family History of CAD History of CAD/PTCA Myocardial Infarction Coronary Artery Bypass Graft Congestive Heart Failure Pacer/ICD Implant 10-04-13 a Previous Echo was performed. Measurements: BP: 127/ 70 2D Normal Values RVIDd: 3.80 cm <2.7 cm IVSd: 1.10 cm 0.6 - 1.0 cm LVIDd: 4.70 cm 3.7 - 5.6 cm LVPWd: 1.20 cm 0.6 - 1.1 cm LVIDs: 3.30 cm 1.5 - 3.6 cm AO: 2.90 cm < 4.0 cm LA: 4.50 cm 2.0 - 4.0cm %FS: 29.80 cm >25 % LVOT Diam: 2.00 cm LA volume: 90 Mitral Valve Peak E:1.23 m/sec Peak A:.31 m/sec E/A Ratio:3.9 Peak E' Lat Kenny:10.4 cm/s E/E' Lat Ratio:12.8 Tricuspid Valve TV Regurg Peak Grad: 56.00mmHg TV Regurg Peak Kenny: 3.73m/sec Updated by Дмитрий Soria DO, FACBalbina, RINKU, CAROLYN on 05/02/2016 9:41:14 PM electronically signed on 05/02/2016 9:42:45 PM with status of Final Wall Motion Riggs: 1=Normal, 2=Hypokinesis, 3=Akinesis, 4=Dyskinesis, 5=Aneurysmal, 6=Hyperkinetic, X=Not Visualized (Blank)=Missing
[2016-05-03] MEDS: *HR* LORazepam 0.5 MG TABLET PO PRN ×3 (02:00→16:23)
[2016-05-03 05:32] LABS: Basophils % 0.7 %; Eosinophils # 0.3 K/mcL (0.0-0.6); Eosinophils % 5.4 %; Hematocrit 27.8 % (37.5-50.1); Hemoglobin 8.6 g/dL (12.9-16.9); Immature Granulocytes % 0.4 % (0-4); Lymphocytes % 21.9 %; Mean Corpuscular HGB Conc 30.9 g/dL (31.6-35.5); Mean Corpuscular Hemoglobin 27.7 pg (28.0-33.3); Mean Corpuscular Volume 89.7 fL (83.0-100.0); Mean Platelet Volume 9.8 fL (9.4-12.4); Monocytes # 0.5 K/mcL (0.0-1.3); Monocytes % 10.2 %; Neutrophils # 2.8 K/mcL (1.6-8.9); Segmented Neutrophils % 61.4 %
[2016-05-03 05:34] LABS: Platelet Count 83 K/mcL (140-400)
[2016-05-03 05:45] LABS: Calcium 8.4 mg/dL (8.6-10.8); Potassium 3.6 mEq/L (3.5-4.5)
[2016-05-03] MEDS: *HR* Heparin 5,000 UNIT/ML VIAL SQ SCH ×2 (05:57→14:36)
[2016-05-03] MEDS: Furosemide 40 MG/4 ML VIAL IVP SCH ×2 (08:04→16:12)
[2016-05-03] MEDS: Insulin LISPRO 300 UNITS/3 ML VIAL SQ SCH ×3 (08:06→16:13)
--- NOTE | 2016-05-03 09:50 | Internal Med Progress Note ---
Date of Encounter: 05/03/16 Time of Encounter: 09:49 - Assessment and plan (1) Acute metabolic encephalopathy Current Visit: Yes Status: Acute Assessment and plan: Possibly secondary to CHF Also may be progression of dementia Neurology input appreciated, no further work up (2) Acute exacerbation of CHF (congestive heart failure) Current Visit: Yes Status: Acute Assessment and plan: ECHO noted LVEF 50%, normal lV chamber size and wall thickness. Atypical septal motion consistent with pacemaker/postoperative symptoms. Indeterminate diastolic function. Right ventricle is not well visualized. Severe pulmonary hypertension RVSP 61 mmHg. Continue lasix Patient was positive fluid balance Limit fluid intake to 1500cc daily Continue strict intake/output monitoring daily weights Qualifiers: Congestive heart failure type: diastolic Qualified Code(s): I50.33 - Acute on chronic diastolic (congestive) heart failure (3) DVT prophylaxis Current Visit: Yes Status: Acute Assessment and plan: Heparin SQ (4) CKD (chronic kidney disease) stage 4, GFR 15-29 ml/min Current Visit: Yes Status: Chronic Assessment and plan: Chronic, stable (5) Cirrhosis Current Visit: Yes Status: Chronic Assessment and plan: Chronic, stable, ammonia level WNL, no asterixis Qualifiers: Hepatic cirrhosis type: unspecified hepatic cirrhosis Ascites presence: with ascites Qualified Code(s): K74.60 - Unspecified cirrhosis of liver (6) Hypothyroid Current Visit: Yes Status: Chronic Assessment and plan: Chronic stale, TSH WNL Continue synthroid Qualifiers: Hypothyroidism type: unspecified Qualified Code(s): E03.9 - Hypothyroidism , unspecified (7) Pancytopenia Current Visit: Yes Status: Chronic Assessment and plan: Chronic, from liver disease, stable (8) DM type 2 (diabetes mellitus, type 2) Current Visit: Yes Status: Chronic Assessment and plan: FS acceptable Continue sliding scale Qualifiers: Diabetes mellitus complication status: with kidney complications Diabetes mellitus complication detail: with chronic kidney disease Diabetes mellitus senior care insulin use: unspecified senior care insulin use status Chronic kidney disease stage: stage 4 (severe) Qualified Code(s): E11.22 - Type 2 diabetes mellitus with diabetic chronic kidney disease; N18.4 - Chronic kidney disease, stage 4 (severe) (9) Left leg pain Current Visit: Yes Status: Acute Assessment and plan: Clinical response today is better No tenderness on palpation Continue pain control - Subjective Interval history: 75 y/o M Seen and evaluated at bedside he has a PMH of CKD 4, Cirrhosis, Pancytopenia, Hypothyroidism, HLF, CHFpEF Admitted for management of acute encephalopathy , possibly a progression if his dementia and possibly secondary to CHF Patient is in lying calmly in bed with no new complaints. Hospital sees her at the bedside, patient was able to stand to use a urinal without complaining of pain. Left ankle x-ray done yesterday noted soft tissue swelling, and an artifact, no noted fracture. MRI cannot be done due to presence of pacemaker. Neurology input appreciated. 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 - Constitutional Vitals: Temp Pulse Resp BP Pulse Ox 98.4 F 60 22 119/70 100 05/03/16 07:40 05/03/16 07:40 05/03/16 07:40 05/03/16 07:40 05/03/16 08:00 General appearance: Present: A&O X 1, pleasant, no acute distress - Head Head exam: Present: atraumatic, normocephalic - Eye Eye exam: Present: PERRL, conjuntiva pink, sclera anicteric Pupils: Present: PERRL - Neck Neck exam general surgery: Present: supple, trachea midline. Absent: lymphadenopathy - Respiratory Respiratory exam: Present: CTAB. Absent: accessory muscle use, rales, rhonchi, wheezes - Cardiovascular Cardiovascular exam: Present: RRR, +S1, +S2. Absent: diastolic murmur, gallop, rubs, systolic murmur - GI/Abdominal GI/Abdominal exam: Present: normal bowel sounds, soft, no peritoneal signs. Absent: distended, tenderness - Extremities Exam Extremities exam: Present: warm, radial pulses palpable and symetrical. Absent : calf tenderness, cyanotic, pedal edema Additional comments: No tenderness on palpation of left ankle today - Neurological Exam Neurological exam: Present: alert. Absent: oriented X3, pronater drift, facial droop, speech deficit - Skin Skin exam: Present: dry Internal Medicine: Result - Labs CBC & Chem 7: 05/03/16 04:59 05/03/16 04:59 Labs: Short CBC 05/03/16 Range/Units 04:59 WBC 4.6 (4.3-11.1) K/mcL Hgb 8.6 L (12.9-16.9) g/dL Hct 27.8 L (37.5-50.1) % Plt Count 83 L (140-400) K/mcL Neutrophils # 2.8 (1.6-8.9) K/mcL BMP 05/03/16 04:59 Sodium 139 Potassium 3.6 Chloride 108 Carbon Dioxide 22 BUN 56 H Creatinine 2.26 H Glucose 52 L Calcium 8.4 L - ABG Interpretation ABG results: PT/INR, D-dimer PT 13.9 Seconds (9.4-12.1) H 05/01/16 18:15 - Impressions Impressions Ankle X-Ray 05/02/16 11:34 IMPRESSION: 1. Soft tissue swelling over the lateral malleolus with no convincing acute osseous abnormality. Questionable linear lucency in the distal fibula is favored to be artifact but if patient has persistent pain, it may represent a nondisplaced fracture. 2. Osteopenia. 3. Atherosclerosis. D/ / Ken Michele MD / Ken Michele MD Interpreting Provider: Ken Michele MD Consult Discharge Plan - Plan Referrals: NO,PCP [Primary Care Provider] -
--- NOTE | 2016-05-03 15:25 | Electrocardiograph Report ---
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
[2016-05-04] MEDS: *HR* Heparin 5,000 UNIT/ML VIAL SQ SCH ×4 (03:15→21:38)
[2016-05-04] MEDS: *HR* OxyCODONE/APAP 5/325 TABLET PO PRN ×2 (03:16→20:47)
[2016-05-04] MEDS: Pravastatin Sodium 10 MG PO SCH ×2 (03:16→20:54)
[2016-05-04] MEDS: *HR* LORazepam 0.5 MG TABLET PO PRN ×4 (03:17→21:38)
[2016-05-04] MEDS: Insulin LISPRO 300 UNITS/3 ML VIAL SQ SCH ×5 (03:17→21:33)
[2016-05-04 06:47] LABS: Basophils % 0.4 %; Red Cell Distribution Width 15.8 % (11.5-14.5)
[2016-05-04 06:49] LABS: Eosinophils # 0.3 K/mcL (0.0-0.6); Hematocrit 29.2 % (37.5-50.1); Hemoglobin 8.9 g/dL (12.9-16.9); Immature Granulocytes % 0.6 % (0-4); Lymphocytes # 0.9 K/mcL (0.6-4.6); Lymphocytes % 19.5 %; Mean Corpuscular HGB Conc 30.5 g/dL (31.6-35.5); Mean Corpuscular Hemoglobin 27.4 pg (28.0-33.3); Mean Corpuscular Volume 89.8 fL (83.0-100.0); Monocytes # 0.5 K/mcL (0.0-1.3); Monocytes % 10.8 %; Red Blood Count 3.25 M/mcL (4.19-5.50); Segmented Neutrophils % 62.7 %
[2016-05-04 06:54] LABS: Platelet Count 96 K/mcL (140-400)
[2016-05-04 07:07] LABS: Calcium 8.6 mg/dL (8.6-10.8); Potassium 3.9 mEq/L (3.5-4.5)
--- NOTE | 2016-05-04 07:26 | Physician Discharge Referral ---
ExtendedCare Referral Info Transfer To: [facility] Provider in Charge after Transfer: PCP Institutional Level of Care: Skilled - Diagnosis (1) Acute metabolic encephalopathy Status: Resolved (2) Acute exacerbation of CHF (congestive heart failure) Priority: Primary Status: Acute (3) DVT prophylaxis Priority: Primary Status: Acute (4) CKD (chronic kidney disease) stage 4, GFR 15-29 ml/min Priority: Secondary Status: Chronic (5) Cirrhosis Priority: Secondary Status: Chronic (6) Hypothyroid Priority: Secondary Status: Chronic (7) Pancytopenia Priority: Secondary Status: Chronic (8) DM type 2 (diabetes mellitus, type 2) Priority: Secondary Status: Chronic (9) Left leg pain Priority: Secondary Status: Chronic - Transfer Medications Home Medications: GlyBURIDE 5 mg PO BID 02/10/15 [History] Isosorbide MONOnitrate (24 HR) [Imdur] 30 mg PO DAILY 02/10/15 [History] Levothyroxine [Synthroid] 88 mcg PO DAILY 02/10/15 [History] Pravastatin Sodium 10 mg PO HS 01/21/16 [History] Carvedilol 12.5 mg PO BID 03/31/16 [History] Insulin Glargine,Hum.rec.anlog [Lantus Solostar] 40 units SQ HS 04/20/16 [ History] LORazepam [Ativan] 0.5 - 1 mg PO Q4HR PRN 05/02/16 [History] Donepezil [Aricept] 10 mg PO HS #0 tablet 05/04/16 [Rx] Furosemide [Lasix] 40 mg PO DAILY #0 05/04/16 [Rx] Allergies/Adverse Reactions: Allergies Uzzlmas-Zko-Iia Reductase Inhibitor [Statins] Adverse Reaction (Verified 17:52) Muscle Pain - Respiratory Orders Smoking Cessation: Smoking cessation has been advised. For more information, call the [place] Tobacco Quit Line at 5-870-GKHM-NOW. - Advance Directives Code Status: Full Code - Mobility Orders Ambulate - Rehabiliation Orders Rehab Potential: Fair - Diet Orders No Concentrated Sweets, Renal, Cardiac CERTIFICATION: I certify that the transfer of the above named patient to an Extended Care Facility is necessary for the continuing treatment of the diagnosis listed. The above information is true and accurate reflection of patient's current condition. Confidential - Redisclosure prohibited without a patient's written consent.
--- NOTE | 2016-05-04 08:26 | Discharge Summary ---
Date of Encounter: 05/06/16 Time of Encounter: 08:15 - Discharge Diagnosis (1) Acute metabolic encephalopathy Status: Resolved (2) Acute exacerbation of CHF (congestive heart failure) Status: Acute Qualifiers: Congestive heart failure type: diastolic Qualified Code(s): I50.33 - Acute on chronic diastolic (congestive) heart failure (3) DVT prophylaxis Status: Acute (4) CKD (chronic kidney disease) stage 4, GFR 15-29 ml/min Status: Chronic (5) Cirrhosis Status: Chronic Qualifiers: Hepatic cirrhosis type: unspecified hepatic cirrhosis Ascites presence: with ascites Qualified Code(s): K74.60 - Unspecified cirrhosis of liver (6) Hypothyroid Status: Chronic Qualifiers: Hypothyroidism type: unspecified Qualified Code(s): E03.9 - Hypothyroidism , unspecified (7) Pancytopenia Status: Chronic (8) DM type 2 (diabetes mellitus, type 2) Status: Chronic Qualifiers: Diabetes mellitus complication status: with kidney complications Diabetes mellitus complication detail: with chronic kidney disease Diabetes mellitus halfway insulin use: unspecified halfway insulin use status Chronic kidney disease stage: stage 4 (severe) Qualified Code(s): E11.22 - Type 2 diabetes mellitus with diabetic chronic kidney disease; N18.4 - Chronic kidney disease, stage 4 (severe) (9) Left leg pain Status: Chronic (10) Dementia Status: Chronic Qualifiers: Dementia type: unspecified type Dementia behavioral disturbance: with behavioral disturbance Qualified Code(s): F03.91 - Unspecified dementia with behavioral disturbance - Discharge Medications Home Medications: GlyBURIDE 5 mg PO BID 02/10/15 [History] Isosorbide MONOnitrate (24 HR) [Imdur] 30 mg PO DAILY 02/10/15 [History] Levothyroxine [Synthroid] 88 mcg PO DAILY 02/10/15 [History] Pravastatin Sodium 10 mg PO HS 01/21/16 [History] Carvedilol 12.5 mg PO BID 03/31/16 [History] Insulin Glargine,Hum.rec.anlog [Lantus Solostar] 40 units SQ HS 04/20/16 [ History] LORazepam [Ativan] 0.5 - 1 mg PO Q4HR PRN 05/02/16 [History] Donepezil [Aricept] 10 mg PO HS #0 tablet 05/04/16 [Rx] Furosemide [Lasix] 40 mg PO DAILY #0 05/04/16 [Rx] Allergies/Adverse Reactions: Allergies Kahlqsh-Xrh-Drv Reductase Inhibitor [Statins] Adverse Reaction (Verified 17:52) Muscle Pain Procedures/tests Complete & Pending: Procedures Performed prior 72 hours Category Date Time Status MR head/brain wo con [MR] Routine MRI 05/02/16 05:57 Stop Req EV echocardiogram Routine Y 05/02/16 05:57 Completed Date of admission: 05/02/16 03:15 Primary care physician: PCP NO Consults: 05/02/16 03:18 Consult to Neurology [CONS] Routine Consulting Provider: Neurology [facility] Reason for Consult: Confusion Call Completed: No Discharging clinician: Ellis Banegas Anticipated date of discharge: 05/04/16 - Patient Status Condition: Fair - Discharge Instructions Follow Up With: SUJEY,PCP [Non-Partnered Physician] - Hospital course: Mr. Frye is a 75 year old male - Time Spent with Patient Total time spent providing and/or coordinating discharge services: - Constitutional Vitals: Temp Pulse Resp BP Pulse Ox 97.7 F 60 16 138/75 98 05/04/16 07:35 05/04/16 07:35 05/04/16 07:35 05/04/16 07:35 05/04/16 07:35 General appearance: Present: A&O X 1, pleasant, no acute distress, answers questions appropriately Exam: Oriented to self only - Head Head exam: Present: atraumatic, normocephalic - Eye Eye exam: Present: PERRL, conjuntiva pink, sclera anicteric Pupils: Present: PERRL - Neck Neck exam general surgery: Present: supple, trachea midline. Absent: lymphadenopathy - Respiratory Respiratory exam: Present: CTAB. Absent: accessory muscle use, rales, rhonchi, wheezes - Cardiovascular Cardiovascular exam: Present: RRR, +S1, +S2. Absent: diastolic murmur, gallop, rubs, systolic murmur - GI/Abdominal GI/Abdominal exam: Present: normal bowel sounds, soft, no peritoneal signs. Absent: distended, tenderness - Extremities Exam Extremities exam: Present: warm, radial pulses palpable and symetrical. Absent : calf tenderness, cyanotic, pedal edema - Neurological Exam Neurological exam: Present: CN II-XII intact, oriented X3, no focal deficits. Absent: pronater drift, facial droop, speech deficit - Skin Skin exam: Present: dry, intact
[2016-05-04] MEDS: Furosemide 40 MG/4 ML VIAL IVP SCH ×2 (09:09→16:33)
--- NOTE | 2016-05-04 13:49 | Internal Med Progress Note ---
Date of Encounter: 05/04/16 Time of Encounter: 09:00 - Assessment and plan (1) Acute metabolic encephalopathy Current Visit: Yes Status: Resolved Assessment and plan: No obvious cause of patient's confusion at this time Patient has dementia Chemistries at baseline, ammonia is within normal, showing a slightly elevated bilirubin, hesitancy and chronic microvascular changes, TSH within normal limits as well as vitamin B-12 folate. Extensive discussion with patient's family Neurology input appreciated Patient is for discharge back to SNF when accepted (2) Acute exacerbation of CHF (congestive heart failure) Current Visit: Yes Status: Acute Assessment and plan: ECHO noted LVEF 50%, normal lV chamber size and wall thickness. Atypical septal motion consistent with pacemaker/postoperative symptoms. Indeterminate diastolic function. Right ventricle is not well visualized. Severe pulmonary hypertension RVSP 61 mmHg. Continue lasix Patient was positive fluid balance Limit fluid intake to 1500cc daily Continue strict intake/output monitoring daily weights Qualifiers: Congestive heart failure type: diastolic Qualified Code(s): I50.33 - Acute on chronic diastolic (congestive) heart failure (3) DVT prophylaxis Current Visit: Yes Status: Acute Assessment and plan: Heparin SQ (4) CKD (chronic kidney disease) stage 4, GFR 15-29 ml/min Current Visit: Yes Status: Chronic Assessment and plan: Chronic, stable (5) Cirrhosis Current Visit: Yes Status: Chronic Assessment and plan: Chronic, stable, ammonia level WNL, no asterixis Qualifiers: Hepatic cirrhosis type: unspecified hepatic cirrhosis Ascites presence: with ascites Qualified Code(s): K74.60 - Unspecified cirrhosis of liver (6) Hypothyroid Current Visit: Yes Status: Chronic Assessment and plan: Chronic stale, TSH WNL Continue synthroid Qualifiers: Hypothyroidism type: unspecified Qualified Code(s): E03.9 - Hypothyroidism , unspecified (7) Pancytopenia Current Visit: Yes Status: Chronic Assessment and plan: Chronic, from liver disease, stable (8) DM type 2 (diabetes mellitus, type 2) Current Visit: Yes Status: Chronic Assessment and plan: FS acceptable Continue sliding scale Qualifiers: Diabetes mellitus complication status: with kidney complications Diabetes mellitus complication detail: with chronic kidney disease Diabetes mellitus assisted insulin use: unspecified assisted insulin use status Chronic kidney disease stage: stage 4 (severe) Qualified Code(s): E11.22 - Type 2 diabetes mellitus with diabetic chronic kidney disease; N18.4 - Chronic kidney disease, stage 4 (severe) (9) Left leg pain Current Visit: Yes Status: Chronic Assessment and plan: Possibly secondary to neuropathy Clinical response today is better No tenderness on palpation Continue pain control (10) Dementia Current Visit: Yes Status: Chronic Assessment and plan: Continue ativan, resume aricept Qualifiers: Dementia type: unspecified type Dementia behavioral disturbance: with behavioral disturbance Qualified Code(s): F03.91 - Unspecified dementia with behavioral disturbance - Subjective Interval history: 75 y/o M Seen and evaluated at bedside he has a PMH of CKD 4, Cirrhosis, Pancytopenia, Hypothyroidism, HLF, CHFpEF Admitted for management of acute encephalopathy , possibly a progression of his dementia and possibly secondary to CHF Patient is in lying calmly in bed with no new complaints. Oriented to person only, not agitated I spoke at length with patient's and daughter yesterday, she is in denial of his diagnosis, but she seems to have come to terms with it after our prolonged discussion - Constitutional Vitals: Temp Pulse Resp BP Pulse Ox 97.5 F L 68 20 147/80 100 05/04/16 11:08 05/04/16 11:08 05/04/16 11:08 05/04/16 11:08 05/04/16 11:08 General appearance: Present: A&O X 1, pleasant, no acute distress, answers questions appropriately - Head Head exam: Present: atraumatic, normocephalic - Eye Eye exam: Present: PERRL, conjuntiva pink, sclera anicteric Pupils: Present: PERRL - Neck Neck exam general surgery: Present: supple, trachea midline. Absent: lymphadenopathy - Respiratory Respiratory exam: Present: CTAB. Absent: accessory muscle use, rales, rhonchi, wheezes - Cardiovascular Cardiovascular exam: Present: RRR, +S1, +S2. Absent: diastolic murmur, gallop, rubs, systolic murmur - GI/Abdominal GI/Abdominal exam: Present: normal bowel sounds, soft, no peritoneal signs. Absent: distended, tenderness - Extremities Exam Extremities exam: Present: warm, radial pulses palpable and symetrical. Absent : calf tenderness, cyanotic, pedal edema, tenderness - Neurological Exam Neurological exam: Present: alert, CN II-XII intact, normal gait, no focal deficits. Absent: oriented X3, pronater drift, facial droop, speech deficit - Skin Skin exam: Present: dry Internal Medicine: Result - Labs CBC & Chem 7: 05/04/16 06:05 05/04/16 06:05 Labs: Short CBC 05/04/16 Range/Units 06:05 WBC 4.8 (4.3-11.1) K/mcL Hgb 8.9 L (12.9-16.9) g/dL Hct 29.2 L (37.5-50.1) % Plt Count 96 L (140-400) K/mcL Neutrophils # 3.0 (1.6-8.9) K/mcL BMP 05/04/16 06:05 Sodium 140 Potassium 3.9 Chloride 109 Carbon Dioxide 20 BUN 54 H Creatinine 2.17 H Glucose 97 Calcium 8.6 - ABG Interpretation ABG results: PT/INR, D-dimer PT 13.9 Seconds (9.4-12.1) H 05/01/16 18:15 Consult Discharge Plan - Plan Referrals: NO,PCP [Primary Care Provider] -
[2016-05-05 06:50] LABS: Mean Corpuscular Hemoglobin 27.4 pg (28.0-33.3); Red Cell Distribution Width 15.9 % (11.5-14.5)
[2016-05-05 06:52] LABS: Basophils % 0.9 %; Eosinophils # 0.3 K/mcL (0.0-0.6); Eosinophils % 7.1 %; Hematocrit 27.7 % (37.5-50.1); Hemoglobin 8.4 g/dL (12.9-16.9); Immature Granulocytes % 0.5 % (0-4); Immature Platelets 1.3 % (1.1-6.1); Lymphocytes # 0.8 K/mcL (0.6-4.6); Lymphocytes % 20.1 %; Mean Corpuscular HGB Conc 30.3 g/dL (31.6-35.5); Mean Corpuscular Volume 90.2 fL (83.0-100.0); Mean Platelet Volume 9.3 fL (9.4-12.4); Monocytes # 0.4 K/mcL (0.0-1.3); Monocytes % 10.4 %; Neutrophils # 2.6 K/mcL (1.6-8.9); Red Blood Count 3.07 M/mcL (4.19-5.50)
[2016-05-05 06:59] LABS: Platelet Count 99 K/mcL (140-400)
[2016-05-05 07:08] LABS: Calcium 8.5 mg/dL (8.6-10.8); Potassium 3.3 mEq/L (3.5-4.5)
[2016-05-05] MEDS: *HR* Heparin 5,000 UNIT/ML VIAL SQ SCH ×3 (08:09→22:49)
[2016-05-05] MEDS: Insulin LISPRO 300 UNITS/3 ML VIAL SQ SCH ×4 (08:26→20:56)
[2016-05-05] MEDS: Gabapentin 100 MG CAPSULE PO SCH ×3 (08:30→21:08)
[2016-05-05] MEDS: Furosemide 40 MG/4 ML VIAL IVP SCH (08:31)
--- NOTE | 2016-05-05 08:46 | Internal Med Progress Note ---
Date of Encounter: 05/05/16 Time of Encounter: 08:30 - Assessment and plan (1) Acute metabolic encephalopathy Current Visit: Yes Status: Resolved Assessment and plan: No obvious cause of patient's confusion at this time Patient has dementia Chemistries at baseline, ammonia is within normal, showing a slightly elevated bilirubin, hesitancy and chronic microvascular changes, TSH within normal limits as well as vitamin B-12 folate. Extensive discussion with patient's family Neurology input appreciated Patient is for discharge back to SNF when accepted (2) Acute exacerbation of CHF (congestive heart failure) Current Visit: Yes Status: Acute Assessment and plan: ECHO noted LVEF 50%, normal lV chamber size and wall thickness. Atypical septal motion consistent with pacemaker/postoperative symptoms. Indeterminate diastolic function. Right ventricle is not well visualized. Severe pulmonary hypertension RVSP 61 mmHg. Continue lasix, change to po 40mg bid, patient has taken out 2 IVs placed today , will titrate prn Patient was positive fluid balance Limit fluid intake to 1500cc daily Continue strict intake/output monitoring daily weights Qualifiers: Congestive heart failure type: diastolic Qualified Code(s): I50.33 - Acute on chronic diastolic (congestive) heart failure (3) DVT prophylaxis Current Visit: Yes Status: Acute Assessment and plan: Heparin SQ (4) CKD (chronic kidney disease) stage 4, GFR 15-29 ml/min Current Visit: Yes Status: Chronic Assessment and plan: Chronic, stable (5) Cirrhosis Current Visit: Yes Status: Chronic Assessment and plan: Chronic, stable, ammonia level WNL, no asterixis Qualifiers: Hepatic cirrhosis type: unspecified hepatic cirrhosis Ascites presence: with ascites Qualified Code(s): K74.60 - Unspecified cirrhosis of liver (6) Hypothyroid Current Visit: Yes Status: Chronic Assessment and plan: Chronic stale, TSH WNL Continue synthroid Qualifiers: Hypothyroidism type: unspecified Qualified Code(s): E03.9 - Hypothyroidism , unspecified (7) Pancytopenia Current Visit: Yes Status: Chronic Assessment and plan: Chronic, from liver disease, stable (8) DM type 2 (diabetes mellitus, type 2) Current Visit: Yes Status: Chronic Assessment and plan: FS acceptable Continue sliding scale Qualifiers: Diabetes mellitus complication status: with kidney complications Diabetes mellitus complication detail: with chronic kidney disease 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 Chronic kidney disease stage: stage 4 (severe) Qualified Code(s): E11.22 - Type 2 diabetes mellitus with diabetic chronic kidney disease; N18.4 - Chronic kidney disease, stage 4 (severe) (9) Left leg pain Current Visit: Yes Status: Chronic Assessment and plan: Possibly secondary to neuropathy X-ray with no fracture Clinical response today is better No tenderness on palpation Continue pain control (10) Dementia Current Visit: Yes Status: Chronic Assessment and plan: Continue ativan prn and aricept Qualifiers: Dementia type: unspecified type Dementia behavioral disturbance: with behavioral disturbance Qualified Code(s): F03.91 - Unspecified dementia with behavioral disturbance (11) Hypokalemia Current Visit: Yes Status: Acute Assessment and plan: Replaced po, continue to monitor - Subjective Interval history: 75 y/o M Seen and evaluated at bedside he has a PMH of CKD 4, Cirrhosis, Pancytopenia, Hypothyroidism, HLF, CHFpEF Admitted for management of acute encephalopathy , possibly a progression of his dementia and possibly secondary to CHF Patient is in lying calmly in bed with no new complaints. Oriented to person only, not agitated He has hypokalemia today, will replete, will change lasix to po - Constitutional Vitals: Temp Pulse Resp BP Pulse Ox 97.5 F L 63 18 131/74 96 05/05/16 08:21 05/05/16 08:21 05/05/16 08:21 05/05/16 08:21 05/05/16 08:21 General appearance: Present: A&O X 1, pleasant, no acute distress, answers questions appropriately - Head Head exam: Present: atraumatic, normocephalic - Eye Eye exam: Present: PERRL, conjuntiva pink, sclera anicteric Pupils: Present: PERRL - Neck Neck exam general surgery: Present: supple, trachea midline. Absent: lymphadenopathy - Respiratory Respiratory exam: Present: CTAB. Absent: accessory muscle use, rales, rhonchi, wheezes - GI/Abdominal GI/Abdominal exam: Present: distended, normal bowel sounds, soft, no peritoneal signs. Absent: tenderness - Extremities Exam Extremities exam: Present: warm, radial pulses palpable and symetrical. Absent : calf tenderness, cyanotic, pedal edema - Neurological Exam Neurological exam: Present: alert, CN II-XII intact, no focal deficits. Absent : oriented X3, pronater drift, facial droop, speech deficit - Skin Skin exam: Present: dry, intact Internal Medicine: Result - Labs CBC & Chem 7: 05/05/16 06:26 05/05/16 06:26 Labs: Short CBC 05/05/16 Range/Units 06:26 WBC 4.2 L (4.3-11.1) K/mcL Hgb 8.4 L (12.9-16.9) g/dL Hct 27.7 L (37.5-50.1) % Plt Count 99 L (140-400) K/mcL Neutrophils # 2.6 (1.6-8.9) K/mcL BMP 05/05/16 06:26 Sodium 141 Potassium 3.3 L Chloride 108 Carbon Dioxide 21 BUN 52 H Creatinine 2.03 H Glucose 66 L Calcium 8.5 L - ABG Interpretation ABG results: PT/INR, D-dimer PT 13.9 Seconds (9.4-12.1) H 05/01/16 18:15 Consult Discharge Plan - Plan Referrals: NO,PCP [Non-Partnered Physician] -
[2016-05-05] MEDS: *HR* LORazepam 0.5 MG TABLET PO PRN (16:41)
[2016-05-05] MEDS: Furosemide 40 MG TABLET PO SCH (16:41)
[2016-05-05] MEDS: Pravastatin Sodium 10 MG PO SCH (20:56)
[2016-05-06] MEDS: *HR* Heparin 5,000 UNIT/ML VIAL SQ SCH ×2 (05:34→15:34)
[2016-05-06] MEDS: Insulin LISPRO 300 UNITS/3 ML VIAL SQ SCH ×3 (08:08→15:56)
[2016-05-06] MEDS: Furosemide 40 MG TABLET PO SCH ×2 (08:14→15:55)
[2016-05-06] MEDS: Gabapentin 100 MG CAPSULE PO SCH ×2 (08:14→15:55)
--- NOTE | 2016-05-06 10:17 | Discharge Summary ---
Date of Encounter: 05/06/16 Time of Encounter: 10:16 - Discharge Diagnosis (1) Acute metabolic encephalopathy Priority: Primary Status: Resolved (2) Acute exacerbation of CHF (congestive heart failure) Priority: Primary Status: Acute Qualifiers: Congestive heart failure type: diastolic Qualified Code(s): I50.33 - Acute on chronic diastolic (congestive) heart failure (3) DVT prophylaxis Priority: Primary Status: Acute (4) CKD (chronic kidney disease) stage 4, GFR 15-29 ml/min Priority: Secondary Status: Chronic (5) Cirrhosis Priority: Secondary Status: Chronic Qualifiers: Hepatic cirrhosis type: unspecified hepatic cirrhosis Ascites presence: with ascites Qualified Code(s): K74.60 - Unspecified cirrhosis of liver (6) Hypothyroid Priority: Secondary Status: Chronic Qualifiers: Hypothyroidism type: unspecified Qualified Code(s): E03.9 - Hypothyroidism , unspecified (7) Pancytopenia Priority: Secondary Status: Chronic (8) DM type 2 (diabetes mellitus, type 2) Priority: Secondary Status: Chronic Qualifiers: Diabetes mellitus complication status: with kidney complications Diabetes mellitus complication detail: with chronic kidney disease 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 insulin use status Chronic kidney disease stage: stage 4 (severe) Qualified Code(s): E11.22 - Type 2 diabetes mellitus with diabetic chronic kidney disease; N18.4 - Chronic kidney disease, stage 4 (severe) (9) Left leg pain Priority: Secondary Status: Chronic (10) Dementia Priority: Secondary Status: Chronic Qualifiers: Dementia type: unspecified type Dementia behavioral disturbance: with behavioral disturbance Qualified Code(s): F03.91 - Unspecified dementia with behavioral disturbance - Discharge Medications Home Medications: GlyBURIDE 5 mg PO BID 02/10/15 [History] Isosorbide MONOnitrate (24 HR) [Imdur] 30 mg PO DAILY 02/10/15 [History] Levothyroxine [Synthroid] 88 mcg PO DAILY 02/10/15 [History] Pravastatin Sodium 10 mg PO HS 01/21/16 [History] Carvedilol 12.5 mg PO BID 03/31/16 [History] Insulin Glargine,Hum.rec.anlog [Lantus Solostar] 40 units SQ HS 04/20/16 [ History] LORazepam [Ativan] 0.5 - 1 mg PO Q4HR PRN 05/02/16 [History] Donepezil [Aricept] 10 mg PO HS #0 tablet 05/04/16 [Rx] Furosemide [Lasix] 40 mg PO DAILY #0 05/04/16 [Rx] Allergies/Adverse Reactions: Allergies Acaolbf-Vbe-Jkt Reductase Inhibitor [Statins] Adverse Reaction (Verified 17:52) Muscle Pain Date of admission: 05/02/16 03:15 Primary care physician: Rashel Bowman, Consults: 05/02/16 03:18 Consult to Neurology [CONS] Routine Consulting Provider: Neu[facility] Reason for Consult: Confusion Call Completed: No Discharging clinician: Ellis Banegas Anticipated date of discharge: 05/06/16 - Patient Status Disposition: Transfer SNF Condition: Fair Functional capacity at discharge: independent ambulation Overall status at discharge: patient is progressing back to baseline - Discharge Instructions Follow Up With: NO,PCP [Non-Partnered Physician] - - Diet and Activity Activity: resume usual activities as tolerated Diet: diabetic diet, low fat, low cholesterol, low salt diet Interval History: See below Hospital course: Mr. Frye is a 75 year old male with PMH of CKD 4, Cirrhosis, Pnacyopenia, Hypothyroidism, HLD, CHFpEF he was a resident of SNF where he was transferred to after hospitalization at [facility] He was admitted due to concerns of altered mental status Chart review and documents from outside hospital reported multiple episodes of "acute encephalopathy Neurology was consulted due to negativity of work up, and recommended no further work up and to manage his many medical co-morbidities Work up on admission revealed Chemistries at baseline, ammonia is within normal , showing a slightly elevated bilirubin, Head CT chronic microvascular changes, TSH within normal limits as well as vitamin B-12 folate. 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 His renal function and CBC has remained stable he remains confused, and forgetful, oriented to person only He is stable for discharge to SNF/ECF on current therapy he has been restarted on a low dose of his Gabapentin due to his neuropathy causing pain on his lower extremities, narcotics have been discontinued Patient is stable for discharge back to SNF - Time Spent with Patient Total time spent providing and/or coordinating discharge services: Less than 30 minutes - Constitutional Vitals: Temp Pulse Resp BP Pulse Ox 97.5 F L 60 16 129/73 100 05/06/16 07:52 05/06/16 07:52 05/06/16 07:52 05/06/16 07:52 05/06/16 07:52 General appearance: Present: A&O X 1, pleasant, no acute distress, answers questions appropriately - Head Head exam: Present: atraumatic, normocephalic - Eye Eye exam: Present: PERRL, conjuntiva pink, sclera anicteric Pupils: Present: PERRL - Neck Neck exam general surgery: Present: supple, trachea midline. Absent: lymphadenopathy - Respiratory Respiratory exam: Present: CTAB. Absent: accessory muscle use, rales, rhonchi, wheezes - Cardiovascular Cardiovascular exam: Present: RRR, +S1, +S2. Absent: diastolic murmur, gallop, rubs, systolic murmur - GI/Abdominal GI/Abdominal exam: Present: normal bowel sounds, soft, no peritoneal signs. Absent: distended, tenderness - Extremities Exam Extremities exam: Present: warm, radial pulses palpable and symetrical. Absent : calf tenderness, cyanotic, pedal edema - Neurological Exam Neurological exam: Present: alert, CN II-XII intact, no focal deficits. Absent : oriented X3, pronater drift, facial droop, speech deficit - Skin Skin exam: Present: dry, intact
--- NOTE | 2016-05-06 10:21 | Physician Discharge Referral ---
ExtendedCare Referral Info Transfer To: [facility] Provider in Charge after Transfer: PCP Institutional Level of Care: Skilled - Diagnosis (1) Acute metabolic encephalopathy Priority: Primary Status: Resolved (2) Acute exacerbation of CHF (congestive heart failure) Priority: Primary Status: Acute (3) DVT prophylaxis Priority: Primary Status: Acute (4) CKD (chronic kidney disease) stage 4, GFR 15-29 ml/min Priority: Secondary Status: Chronic (5) Cirrhosis Priority: Secondary Status: Chronic (6) Hypothyroid Priority: Secondary Status: Chronic (7) Pancytopenia Priority: Secondary Status: Chronic (8) DM type 2 (diabetes mellitus, type 2) Priority: Secondary Status: Chronic (9) Left leg pain Priority: Secondary Status: Chronic (10) Dementia Priority: Secondary Status: Chronic Prognosis: Fair Aware of Diagnosis: Patient, Family Aware of Prognosis: Patient, Family - Transfer Medications Home Medications: GlyBURIDE 5 mg PO BID 02/10/15 [History] Isosorbide MONOnitrate (24 HR) [Imdur] 30 mg PO DAILY 02/10/15 [History] Levothyroxine [Synthroid] 88 mcg PO DAILY 02/10/15 [History] Pravastatin Sodium 10 mg PO HS 01/21/16 [History] Carvedilol 12.5 mg PO BID 03/31/16 [History] Insulin Glargine,Hum.rec.anlog [Lantus Solostar] 40 units SQ HS 04/20/16 [ History] LORazepam [Ativan] 0.5 - 1 mg PO Q4HR PRN 05/02/16 [History] Donepezil [Aricept] 10 mg PO HS #0 tablet 05/04/16 [Rx] Furosemide [Lasix] 40 mg PO DAILY #0 05/04/16 [Rx] Allergies/Adverse Reactions: Allergies Elolngs-Svo-Adw Reductase Inhibitor [Statins] Adverse Reaction (Verified 17:52) Muscle Pain - Respiratory Orders Smoking Cessation: Smoking cessation has been advised. For more information, call the [place] Tobacco Quit Line at 4-132-BRLC-NOW. - Advance Directives Code Status: Full Code - Mobility Orders Ambulate - Rehabiliation Orders Rehab Potential: Fair - Diet Orders No Added Salt (CHEYANNE), Renal, Cardiac CERTIFICATION: I certify that the transfer of the above named patient to an Extended Care Facility is necessary for the continuing treatment of the diagnosis listed. The above information is true and accurate reflection of patient's current condition. Confidential - Redisclosure prohibited without a patient's written consent.
[2016-05-06 12:03] VITALS: BP 113/69
== END 2016-05-06 17:14 | DRG 291 ==
LOC: EMEROO 17:44 → 2ANU 17:44 → SUATTDRO 05-02 03:15
PROVIDERS: ADMIT Hospitalist; ATTEND Internal Medicine

== ENCOUNTER 2016-05-15 15:38 | Inpatient (IN) ==
[2016-05-15 16:10] LABS: Basophils % 0.3 %; Eosinophils # 0.3 K/mcL (0.0-0.6); Eosinophils % 3.9 %; Hemoglobin 9.1 g/dL (12.9-16.9); Immature Granulocytes % 1.1 % (0-4); Lymphocytes # 0.8 K/mcL (0.6-4.6); Lymphocytes % 10.2 %; Mean Corpuscular HGB Conc 31.4 g/dL (31.6-35.5); Mean Corpuscular Hemoglobin 27.8 pg (28.0-33.3); Mean Corpuscular Volume 88.7 fL (83.0-100.0); Mean Platelet Volume 9.9 fL (9.4-12.4); Monocytes # 0.7 K/mcL (0.0-1.3); Neutrophils # 5.7 K/mcL (1.6-8.9); Platelet Count 115 K/mcL (140-400); Red Blood Count 3.27 M/mcL (4.19-5.50); Red Cell Distribution Width 16.3 % (11.5-14.5); Segmented Neutrophils % 75.5 %
[2016-05-15 16:20] LABS: VBG HCO3 22.7 mEq/L (21-27); VBG PH 7.34 pH Units (7.32-7.42)
[2016-05-15 16:28] LABS: Albumin 3.1 g/dL (3.5-5.0); Albumin/Globulin Ratio 0.9 (1.1-2.2); Bilirubin,Total 1.4 mg/dL (0.2-1.2); Globulin 3.3 g/dL (2.4-3.5); Potassium 4.2 mEq/L (3.5-4.5); Total Protein 6.4 g/dL (6.0-8.3)
[2016-05-15] MEDS: Ondansetron 4 MG/2 ML VIAL ONE (16:28)
[2016-05-15] MEDS ORDERED: D5% in 0.9% NACL 1,000 ML IVC SCH (16:30)
--- NOTE | 2016-05-15 16:30 | Emergency Department Note ---
Disposition Clinical Impression: Ileus CHF exacerbation Qualifiers: Congestive heart failure type: systolic Qualified Code(s): I50.23 - Acute on chronic systolic (congestive) heart failure Cirrhosis Qualifiers: Hepatic cirrhosis type: unspecified hepatic cirrhosis Ascites presence: with ascites Qualified Code(s): K74.60 - Unspecified cirrhosis of liver Disposition: Admitted As Inpatient Condition: Undetermined Referrals: NO,PCP [Primary Care Provider] - Forms: ED Satisfaction Letter Time of Disposition: 18:10 General Adult HPI - General Chief complaint: ED Nausea/Vomiting/Diarrhea Stated complaint: low blood sugar Time Seen by Provider: 05/15/16 15:39 Source: EMS Mode of arrival: EMS Limitations: no limitations Nursing Notes Reviewed: Yes Vital Signs Reviewed: Yes - History of Present Illness HPI Narrative: 75-year-old male with history of [place], hypertension, hyperlipidemia, diabetes arrives A [place] emergency Department after the patient has began feeling ill today. The patient has had numerous episodes of vomiting over the past 24-48 hours as well as diarrhea. The patient is expressing some abdominal pain as well. Patient is unable to keep any fluids down over the past few days. In addition as the patient states that he feels as though he has a fever and chills. The patient states that he recently had an inguinal hernia repair here at [facility] roughly 1.5 months ago. The patient states that he has had abdominal pain and just not been feeling well since that surgery was performed. Patient denies any other complaints at this time. The does state though that he has been slightly altered in his mentation from his baseline since the surgery. Onset (ago): day(s) (3) Location: abdomen Radiation: non-radiation Pain Severity: moderate Pain Scale: 6 Quality: aching, constant Consistency: constant, Worsening Improves with: nothing Worsens with: nothing Associated symptoms: Reports: fever/chills, nausea/vomiting Treatments Prior to Arrival: none - Related Data Home Medications Medication Instructions Recorded Confirmed GlyBURIDE 5 mg PO BID 02/10/15 05/02/16 Isosorbide MONOnitrate (24 HR) 30 mg PO DAILY 02/10/15 05/02/16 [Imdur] Levothyroxine [Synthroid] 88 mcg PO DAILY 02/10/15 05/02/16 Pravastatin Sodium 10 mg PO HS 01/21/16 05/02/16 Carvedilol 12.5 mg PO BID 03/31/16 05/02/16 Insulin Glargine,Hum.rec.anlog 40 units SQ HS 04/20/16 05/02/16 [Lantus Solostar] LORazepam [Ativan] 0.5 - 1 mg PO Q4HR PRN 05/02/16 05/02/16 Previous Rx's Medication Instructions Recorded Donepezil [Aricept] 10 mg PO HS #0 tablet 05/04/16 Furosemide [Lasix] 40 mg PO DAILY #0 05/04/16 Gabapentin [Neurontin] 100 mg PO TID #90 capsule 05/06/16 Gabapentin [Neurontin] 100 mg PO TID #90 capsule 05/06/16 LORazepam [Ativan] 0.5 mg PO Q4HR PRN #30 tablet 05/06/16 Allergies Allergy/AdvReac Type Severity Reaction Status Date / Time [id number]-[id number] Reductase AdvReac Muscle Pain Verified 05/15/16 15:48 Inhibitor [Statins] Review of Systems: Review of Systems Constitutional: Admits to fevers, chills, night sweats HEENT: Denies headache, blurry vision, Respiratory: Denies cough, sputum change, hemoptysis, dyspnea Cardiac: Denies chest pain, pressure, palpitations, dyspnea on exertion, pedal edema Gastrointestinal: Admits to abdominal pain, changes in bowel habits, vomiting, nausea, denies hematemesis, hematochezia Genitourinary: Denies dysuria, hematuria, nocturia, change in frequency, urgency, incontinence Neurologic: Denies headaches, dizziness, syncope, focalized weakness, paraesthesias, weakness Musculoskeletal: Denies back pain, joint pain, myalgias All systems ED: reviewed and negative except as stated. Past Medical History - Past Medical History Attestation: Yes The following information was validated with the patient. Source: patient, old records reviewed Medical history: Reports: atrial fibrillation, cancer, CHF, CVA, diabetes, hyperlipidemia, hypertension, myocardial infarction, renal disease, other Surgical history: Reports: coronary bypass (CABG), other, pacemaker Psychiatric history: Reports: no psych history - Social History Smoking Status: Former smoker Smokeless Tobacco Status: No Alcohol use: Reports: none Drug use: Reports: none Physical Exam Physical Exam: General: Patient alert, no acute distress, not lethargic HEENT: Head normal inspection, atraumatic, PERRLA, oropharynx grossly intact and normal, trachea midline, no JVD Chest: Nontraumatic, nontender, normal chest rise CV: RRR with no murmurs, rubs, gallops Respiratory: Lungs clear to auscultation bilaterally, no rales, rhonchi, wheezes. Abdomen: Abdomen is distended and ecchymotic with surgical scars in place., Normal bowel sounds 4 quadrants, abdomen is tender generalized. : Patient deferred Extremities: Normal inspection, full range of motion, appropriate pulses, capillary refill under 2 seconds Neurological: Patient alert and oriented 3, cranial nerves II through XII grossly intact, GCS 15 Skin: Warm, intact, no rashes noted, patient is slightly jaundiced in color - General Limitations: no limitations General appearance: alert, in no apparent distress Course Vital Signs Temperature 97.4 F L 05/15/16 15:39 Pulse Rate 61 05/15/16 15:39 Respiratory Rate 18 05/15/16 15:39 Blood Pressure 124/81 05/15/16 15:39 O2 Sat by Pulse Oximetry 100 05/15/16 15:39 Temperature 97.4 F L 05/15/16 15:39 Pulse Rate 60 05/15/16 17:05 Respiratory Rate 17 05/15/16 17:05 Blood Pressure 122/67 05/15/16 17:05 O2 Sat by Pulse Oximetry 97 05/15/16 17:05 Oxygen Delivery Oxygen Delivery Room Air Medical Decision Making - MDM Narrative Medical decision making narrative: Patient noted to have possible ileus versus small bowel truck and on CT scan of the abdomen. There is a moderate amount of ascites in the abdominal cavity as well as bilateral pleural effusions. We will diurese the patient as well as admit the patient to the hospital. Dr. Courtney in the surgery was consulted and stated this does not appear to be a surgical issue at this time. He stated that if the arm. Johnson in-hospital would like him to be consulted and he will gladly see the patient. Patient agrees to plan. - Lab Data Lab results reviewed: Yes I reviewed the patient's lab results. Result diagrams: 05/15/16 16:01 05/15/16 16:01 Lab Results 03/25/17 03/25/17 03/25/17 Range/Units 15:47 16:01 16:01 WBC 7.5 (4.3-11.1) K/mcL RBC 3.27 L (4.19-5.50) M/mcL Hgb 9.1 L (12.9-16.9) g/dL Hct 29.0 L (37.5-50.1) % MCV 88.7 (83.0-100.0) fL MCH 27.8 L (28.0-33.3) pg MCHC 31.4 L (31.6-35.5) g/dL RDW 16.3 H (11.5-14.5) % Plt Count 115 L (140-400) K/mcL MPV 9.9 (9.4-12.4) fL Immature Gran % 1.1 (0-4) % Seg Neutrophils % 75.5 % Lymphocytes % 10.2 % Monocytes % 9.0 % Eosinophils % 3.9 % Basophils % 0.3 % Neutrophils # 5.7 (1.6-8.9) K/mcL Lymphocytes # 0.8 (0.6-4.6) K/mcL Monocytes # 0.7 (0.0-1.3) K/mcL Eosinophils # 0.3 (0.0-0.6) K/mcL Basophils # 0.0 (0.0-0.2) K/mcL VBG pH (7.32-7.42) pH Units VBG pCO2 (41-51) mmHg VBG pO2 (25-40) mmHg VBG HCO3 (21-27) mEq/L Sodium 135 L (136-145) mEq/L Potassium 4.2 (3.5-4.5) mEq/L Chloride 104 (98-109) mEq/L Carbon Dioxide 21 (19-29) mEq/L BUN 70 H (8-26) mg/dL Creatinine 2.33 H (0.72-1.25) mg/dL Est GFR ( Amer) 33 L (> 60) Est GFR (Non-Af Amer) 28 L (> 60) BUN/Creatinine Ratio 30 H (6-26) Glucose 62 L (70-99) mg/dL POC Glucose 75 (58-89) Calculated Osmolality 298 (280-300) Calcium 9.0 (8.6-10.8) mg/dL Total Bilirubin 1.4 H (0.2-1.2) mg/dL AST 32 (5-34) Units/L ALT 19 (0-55) Units/L Alkaline Phosphatase 186 H (38-126) Units/L Ammonia (18-72) mcmol/L Troponin I (0-0.03) ng/mL Serum Total Protein 6.4 (6.0-8.3) g/dL Albumin 3.1 L (3.5-5.0) g/dL Globulin 3.3 (2.4-3.5) g/dL Albumin/Globulin Ratio 0.9 L (1.1-2.2) Lipase 45 (8-78) Units/L 05/15/16 05/15/16 05/15/16 Range/Units 16:01 16:01 16:01 WBC (4.3-11.1) K/mcL RBC (4.19-5.50) M/mcL Hgb (12.9-16.9) g/dL Hct (37.5-50.1) % MCV (83.0-100.0) fL MCH (28.0-33.3) pg MCHC (31.6-35.5) g/dL RDW (11.5-14.5) % Plt Count (140-400) K/mcL MPV (9.4-12.4) fL Immature Gran % (0-4) % Seg Neutrophils % % Lymphocytes % % Monocytes % % Eosinophils % % Basophils % % Neutrophils # (1.6-8.9) K/mcL Lymphocytes # (0.6-4.6) K/mcL Monocytes # (0.0-1.3) K/mcL Eosinophils # (0.0-0.6) K/mcL Basophils # (0.0-0.2) K/mcL VBG pH 7.34 (7.32-7.42) pH Units VBG pCO2 42 (41-51) mmHg VBG pO2 34 (25-40) mmHg VBG HCO3 22.7 (21-27) mEq/L Sodium (136-145) mEq/L Potassium (3.5-4.5) mEq/L Chloride (98-109) mEq/L Carbon Dioxide (19-29) mEq/L BUN (8-26) mg/dL Creatinine (0.72-1.25) mg/dL Est GFR ( Amer) (> 60) Est GFR (Non-Af Amer) (> 60) BUN/Creatinine Ratio (6-26) Glucose (70-99) mg/dL POC Glucose (58-89) Calculated Osmolality (280-300) Calcium (8.6-10.8) mg/dL Total Bilirubin (0.2-1.2) mg/dL AST (5-34) Units/L ALT (0-55) Units/L Alkaline Phosphatase (38-126) Units/L Ammonia 30 (18-72) mcmol/L Troponin I 0.06 H* (0-0.03) ng/mL Serum Total Protein (6.0-8.3) g/dL Albumin (3.5-5.0) g/dL Globulin (2.4-3.5) g/dL Albumin/Globulin Ratio (1.1-2.2) Lipase (8-78) Units/L 03/25/17 Range/Units 16:07 WBC (4.3-11.1) K/mcL RBC (4.19-5.50) M/mcL Hgb (12.9-16.9) g/dL Hct (37.5-50.1) % MCV (83.0-100.0) fL MCH (28.0-33.3) pg MCHC (31.6-35.5) g/dL RDW (11.5-14.5) % Plt Count (140-400) K/mcL MPV (9.4-12.4) fL Immature Gran % (0-4) % Seg Neutrophils % % Lymphocytes % % Monocytes % % Eosinophils % % Basophils % % Neutrophils # (1.6-8.9) K/mcL Lymphocytes # (0.6-4.6) K/mcL Monocytes # (0.0-1.3) K/mcL Eosinophils # (0.0-0.6) K/mcL Basophils # (0.0-0.2) K/mcL VBG pH (7.32-7.42) pH Units VBG pCO2 (41-51) mmHg VBG pO2 (25-40) mmHg VBG HCO3 (21-27) mEq/L Sodium (136-145) mEq/L Potassium (3.5-4.5) mEq/L Chloride (98-109) mEq/L Carbon Dioxide (19-29) mEq/L BUN (8-26) mg/dL Creatinine (0.72-1.25) mg/dL Est GFR ( Amer) (> 60) Est GFR (Non-Af Amer) (> 60) BUN/Creatinine Ratio (6-26) Glucose (70-99) mg/dL POC Glucose 76 (58-89) Calculated Osmolality (280-300) Calcium (8.6-10.8) mg/dL Total Bilirubin (0.2-1.2) mg/dL AST (5-34) Units/L ALT (0-55) Units/L Alkaline Phosphatase (38-126) Units/L Ammonia (18-72) mcmol/L Troponin I (0-0.03) ng/mL Serum Total Protein (6.0-8.3) g/dL Albumin (3.5-5.0) g/dL Globulin (2.4-3.5) g/dL Albumin/Globulin Ratio (1.1-2.2) Lipase (8-78) Units/L - Radiology Data Radiology results reviewed: Yes I reviewed the patient's radiology results. - EKG Data EKG #1 EKG attestation: Yes I reviewed and interpreted this EKG. EKG results narrative: Heart rate 60 bpm. Electronic ventricular pacemaker noted. No acute changes noted. Attestation Statement - Attestation Attestation: I examined this patient and my medical decision-making was reviewed with the EMBROIDERY DESIGNER/PA/Advanced Practice Nurse/Resident Physician. I agree with the documented findings, disposition and treatment plan as described except to the extent set forth below. Patient in the emergency department complaining of vomiting diarrhea and low blood sugar. Has been running low in the 50s and 60s of a custodial all day. He is not vomiting for 2 days. Recently had an inguinal hernia repair. On examination he has a firm abdomen. Diffusely tender. Diminished bowel sounds. Lungs clear. Blood sugar in the 60s on arrival. Plan. We will start him on some D5. CT abdomen shows an ileus. He has been discussed with surgery. He will be admitted to medicine.
[2016-05-15] MEDS ORDERED: Naloxone 0.4 MG/ML INJ IVP PRN (23:34)
--- NOTE | 2016-05-15 23:43 | Internal Med History&Physical ---
Date of Encounter: 05/15/16 Time of Encounter: 22:30 Assessment and Plan (1) Partial small bowel obstruction Current visit: Yes Status: Acute Patient reported multiple episodes of vomiting. CT scan of abdomen and pelvis showed distended fluid-filled loops of small bowel, partial small bowel obstruction is not excluded. Patient denies nausea at the time of my evaluation. We will keep him nothing by mouth. Into patient is nauseous but consider NG tube placement. Patient is able to pass flatness and apparently had loose stool. I suspect the patient may have gastroenteritis - will obtain stool culture and C. difficile toxin. We will keep him on IV fluids when the patient is nothing by mouth. Surgeon Dr. Courtney was consultation by the ER. (2) Hypoglycemia Current visit: Yes Status: Acute Patient apparently has been on insulin in the half-way. Patient had multiple episodes of vomiting which possibly contributed to hypoglycemia. Patient is on D5 normal saline infusion at this time. Monitor Accu-Cheks every 4 hours, without insulin coverage. Intravenous dextrose, if the patient is hypoglycemic. (3) Elevated troponin Current visit: Yes Status: Acute Possible chronic elevation due to CKD / CHF. will trend troponins. Pt denies chest pain. (4) Cirrhosis of liver Current visit: Yes Status: Chronic CT scan of the abdomen reported "mildly nodular liver surface raising the possibility of cirrhosis". Patient also has ascites. No clinical evidence of hepatic encephalopathy at this time. Will consider GI consult. Qualifiers: Hepatic cirrhosis type: unspecified hepatic cirrhosis Qualified Code(s): K74.60 - Unspecified cirrhosis of liver (5) Ascites Current visit: Yes Status: Acute Possibly due to cirrhosis versus CHF and is contributing to abdominal distension. Will consult histologic technician. Qualifiers: Ascites type: other type Qualified Code(s): R18.8 - Other ascites (6) Congestive heart failure (CHF) Current visit: Yes Status: Chronic Echocardiogram done during his last admission showed LV ejection fraction 50%, with the indeterminate diastolic function. Severe tricuspid regurgitation and pulmonary hypertension noted. Resume Lasix, when he is hemodynamically stable. Qualifiers: Congestive heart failure type: unspecified congestive heart failure type Congestive heart failure chronicity: chronic Qualified Code(s): I50.9 - Heart failure, unspecified (7) CKD (chronic kidney disease) stage 4, GFR 15-29 ml/min Current visit: Yes Status: Chronic Monitor renal function. Renally dose medications. (8) DM type 2 (diabetes mellitus, type 2) Current visit: Yes Status: Chronic Patient has hypoglycemia at this time. Monitor accuchecks Q4 hours, with no insulin coverage Qualifiers: Diabetes mellitus complication status: with kidney complications Diabetes mellitus complication detail: with chronic kidney disease Diabetes mellitus jail insulin use: unspecified equal employment opportunity officer insulin use status Chronic kidney disease stage: stage 4 (severe) Qualified Code(s): E11.22 - Type 2 diabetes mellitus with diabetic chronic kidney disease; N18.4 - Chronic kidney disease, stage 4 (severe) (9) Hypothyroid Current visit: Yes Status: Chronic Will resume synthroid Qualifiers: Hypothyroidism type: unspecified Qualified Code(s): E03.9 - Hypothyroidism , unspecified (10) Pancytopenia Current visit: Yes Status: Chronic Monitor the counts (11) Pulmonary hypertension Current visit: Yes Status: Chronic (12) Tricuspid regurgitation Current visit: Yes Status: Chronic Possibly contributing to ascites and peripheral edema. Resume Lasix and the patient is clinically stable. Qualifiers: Cardiac valve disease etiology: etiology unspecified Qualified Code(s): I07.1 - Rheumatic tricuspid insufficiency (13) DVT prophylaxis Current visit: Yes Status: Acute Heparin subQ Internal Medicine - H&P: HPI Chief complaint: recurrent vomting Admitted From: Emergency Dept Plans for Post Hospital Care: Transfer Half-Way Facility History of present illness: Mr. Frye is a 75 year old male with h/o hypertension, hyperlipidemia, diabetes , CHF (remote echocardiogram reported LVEF of 55%), coronary artery disease status post CABG, atrial fibrillation, pacemaker/AICD, chronic kidney disease - stage IV, gout, cirrhosis of liver based on imaging, chronic anemia / pancytopenia (follows with hematology / oncology), hypothyroidism, recent Robotic right inguinal hernia repair with mesh (done by Dr Williamson on 03/31/16). He presented to the emergency department from half-way, with history of multiple episodes of vomiting bilious fluid. He also reports abdominal distention. He is able to pass flatus. Apparently had some loose stools, but no melena or hematochezia. He denies chest pain, shortness of breath, cough, expectoration, fever, chills. He was evaluated in the emergency department. His blood glucose was 62. He was started on D5 normal saline infusion. CT scan of the abdomen showed borderline distended fluid-filled loops of small bowel in the left upper quadrant with decompressed distal ileum. No discrete transition point although a low-grade partial small bowel obstruction is not excluded. Moderate nonspecific ascites noted. He is admitted to the hospitalist service for further workup and management. Pt's is at the bedside and able to give clinical details. I have explained the current relevant problems and discussed the plan and answered their questions. Past Med Surg Social Fam HX - Past Medical History Medical history: atrial fibrillation, cancer, CHF, CVA, diabetes, hyperlipidemia , hypertension, myocardial infarction, renal disease, other Psychiatric history: no psych history - Past Surgical History Surgical History: coronary bypass (CABG), other, pacemaker - Social History Smoking Status: Former smoker Smokeless Tobacco Status: No Alcohol use: none Drug use: none - Family History Father Living Status: Hx Family Cardiac Disorders: Yes Internal Medicine - H&P: Meds GlyBURIDE 5 mg PO BID 02/10/15 [History] Isosorbide MONOnitrate (24 HR) [Imdur] 30 mg PO DAILY 02/10/15 [History] Levothyroxine [Synthroid] 88 mcg PO DAILY 02/10/15 [History] Pravastatin Sodium 10 mg PO HS 01/21/16 [History] Carvedilol 12.5 mg PO BID 03/31/16 [History] Insulin Glargine,Hum.rec.anlog [Lantus Solostar] 40 units SQ HS 04/20/16 [ History] LORazepam [Ativan] 0.5 - 1 mg PO Q4HR PRN 05/02/16 [History] Donepezil [Aricept] 10 mg PO HS #0 tablet 05/04/16 [Rx] Furosemide [Lasix] 40 mg PO DAILY #0 05/04/16 [Rx] Gabapentin [Neurontin] 100 mg PO TID #90 capsule 05/06/16 [Rx] Gabapentin [Neurontin] 100 mg PO TID #90 capsule 05/06/16 [Rx] LORazepam [Ativan] 0.5 mg PO Q4HR PRN #30 tablet 05/06/16 [Rx] Allergies Npyxgdk-Npl-Iao Reductase Inhibitor [Statins] Adverse Reaction (Verified 15:48) Muscle Pain All Systems PM: A 10-system review of systems was performed and is negative for pertinent findings except as documented above in the HPI. - Constitutional Vitals: Temp Pulse Resp BP Pulse Ox 98.3 F 60 16 114/68 100 05/15/16 23:06 05/15/16 23:06 05/15/16 23:06 05/15/16 23:06 05/15/16 23:06 Exam: General: Not in acute distress at the time of my evaluation HEENT: Oral mucosa is moist. No conjunctival palor or scleral icterus Neck: No obvious neck swellings Lungs: Clear to auscultation Cardiac: Regular rate and rhythm. No significant murmurs Abdomen: Distended, non tender. Bowel sounds present Genitourinary: No wilson catheter Neurological: Alert and oriented. No gross localizing deficits. No flapping tremor Psych: Not aggressive or agitated Extremities: Mild leg edema present Skin: No generalized rash Internal Med - H&P Results - Labs CBC & Chem 7: 05/15/16 16:01 05/15/16 16:01 - EKG Data -: EKG Interpreted by Myself - EKG Data EKG comments: Paced rhythm 05/16/16 06:25 - Impressions ITS Impressions Abdomen/Pelvis CT 05/15/16 16:18 IMPRESSION: 1. Status post right inguinal hernia repair with mesh in place. 2. Borderline distended fluid-filled loops of small bowel in the left upper quadrant with decompressed distal ileum. No discrete transition point although a low-grade partial small bowel obstruction is not excluded. 3. Small bilateral pleural effusions. Moderate nonspecific ascites. 4. Mildly nodular liver surface raising the possibility of cirrhosis. No focal hepatic lesion identified. 5. Colonic diverticulosis without evidence of acute diverticulitis. D/ / Дмитрий Hui MD / Дмитрий Hui MD Interpreting Provider: Дмитрий Hui MD
[2016-05-16] MEDS: Pantoprazole 40 MG VIAL IVP SCH ×2 (00:36→05:36)
[2016-05-16] MEDS: D5% in 0.9% NACL 1,000 ML IVC SCH ×2 (03:11→14:55)
[2016-05-16] MEDS ORDERED: D5% in Water 1,000 ML IVC PRN (04:28)
[2016-05-16] MEDS ORDERED: Dextrose Gel 15 GM PO PRN ×2 (04:28)
[2016-05-16] MEDS: *HR* Dextrose 50 % in Water (Syg) 50 ML SYRINGE IVP PRN ×4 (04:34→15:17)
[2016-05-16] MEDS: *HR* Heparin 5,000 UNIT/ML VIAL SQ SCH ×3 (05:36→21:44)
[2016-05-16 06:17] LABS: Basophils % 0.4 %; Immature Granulocytes % 0.6 % (0-4); Red Cell Distribution Width 16.5 % (11.5-14.5)
[2016-05-16 06:19] LABS: Eosinophils # 0.2 K/mcL (0.0-0.6); Eosinophils % 3.2 %; Hematocrit 26.7 % (37.5-50.1); Hemoglobin 8.2 g/dL (12.9-16.9); Immature Platelets 0.9 % (1.1-6.1); Lymphocytes # 0.7 K/mcL (0.6-4.6); Lymphocytes % 13.7 %; Mean Corpuscular HGB Conc 30.7 g/dL (31.6-35.5); Mean Corpuscular Hemoglobin 27.5 pg (28.0-33.3); Mean Corpuscular Volume 89.6 fL (83.0-100.0); Mean Platelet Volume 9.4 fL (9.4-12.4); Monocytes # 0.5 K/mcL (0.0-1.3); Monocytes % 10.2 %; Neutrophils # 3.8 K/mcL (1.6-8.9); Platelet Count 103 K/mcL (140-400); Red Blood Count 2.98 M/mcL (4.19-5.50); Segmented Neutrophils % 71.9 %
[2016-05-16 06:21] LABS: INR 1.2; Prothrombin Time 13.3 Seconds (9.4-12.1)
[2016-05-16 06:30] LABS: Calcium 8.3 mg/dL (8.6-10.8); Potassium 3.9 mEq/L (3.5-4.5)
[2016-05-16] MEDS ORDERED: D10% in Water 500 ML IV SOLUTION IVC ONE (13:23)
[2016-05-16] MEDS ORDERED: D10% in Water 500 ML IVC ONE (13:45)
--- NOTE | 2016-05-16 14:08 | Internal Med Progress Note ---
Date of Encounter: 05/16/16 Time of Encounter: 14:02 - Assessment and plan (1) CKD (chronic kidney disease) stage 4, GFR 15-29 ml/min Current Visit: Yes Status: Chronic Assessment and plan: will continuw iv hydration if no improvement then nephrology consult (2) Anemia Current Visit: No Status: Chronic Assessment and plan: chronic Qualifiers: Anemia type: B12 deficiency Vitamin B12 deficiency anemia type: unspecified B12 deficiency Qualified Code(s): D51.9 - Vitamin B12 deficiency anemia, unspecified (3) DM type 2 (diabetes mellitus, type 2) Current Visit: Yes Status: Chronic Assessment and plan: on oral hypoglycemic agent now hypoglycemic started on d 10 until wash out of glyburide Qualifiers: Diabetes mellitus complication status: with kidney complications Diabetes mellitus complication detail: with chronic kidney disease Diabetes mellitus termite helper insulin use: unspecified termite helper insulin use status Chronic kidney disease stage: stage 4 (severe) Qualified Code(s): E11.22 - Type 2 diabetes mellitus with diabetic chronic kidney disease; N18.4 - Chronic kidney disease, stage 4 (severe) (4) Elevated troponin Current Visit: Yes Status: Acute Assessment and plan: chronic will treat medically for now (5) Pancytopenia Current Visit: Yes Status: Chronic Assessment and plan: chronic (6) Dementia Current Visit: No Status: Chronic Assessment and plan: chronic Qualifiers: Dementia type: unspecified type Dementia behavioral disturbance: with behavioral disturbance Qualified Code(s): F03.91 - Unspecified dementia with behavioral disturbance (7) Partial small bowel obstruction Current Visit: Yes Status: Acute Assessment and plan: surgery consulted not surgical abdomen at this time (8) Cirrhosis of liver Current Visit: Yes Status: Chronic Assessment and plan: chronic Qualifiers: Hepatic cirrhosis type: unspecified hepatic cirrhosis Ascites presence: with ascites Qualified Code(s): K74.60 - Unspecified cirrhosis of liver - Subjective Interval history: Patient with history of htn, high cholesterol, diabetes cad/cabg atrial fib has pacer, liver cirrhosis, renal failure admitted from [facility] due to nausea and vomitting ct shows partial small bowel obstruction now has problem with hypoglycemia patient is on glyburide 5 mg bid started on d10 and iv hydration - Constitutional Vitals: Temp Pulse Resp BP Pulse Ox 94.2 F L 60 16 111/67 100 05/16/16 12:55 05/16/16 12:55 05/16/16 12:55 05/16/16 12:55 05/16/16 12:55 General appearance: Present: A&O X 2 - Eye Eye exam: Present: PERRL, conjuntiva pink, sclera anicteric Pupils: Present: PERRL - Neck Neck exam general surgery: Present: supple, trachea midline. Absent: lymphadenopathy - Respiratory Respiratory exam: Present: rhonchi - Cardiovascular Cardiovascular exam: Present: RRR, +S1, +S2. Absent: diastolic murmur, gallop, rubs, systolic murmur - GI/Abdominal GI/Abdominal exam: Present: normal bowel sounds, soft, no peritoneal signs. Absent: distended, tenderness - Extremities Exam Extremities exam: Present: warm, radial pulses palpable and symetrical. Absent : calf tenderness, cyanotic, pedal edema Internal Medicine: Result - Labs CBC & Chem 7: 05/16/16 06:07 05/16/16 06:07 Labs: Short CBC 05/16/16 Range/Units 06:07 WBC 5.3 (4.3-11.1) K/mcL Hgb 8.2 L (12.9-16.9) g/dL Hct 26.7 L (37.5-50.1) % Plt Count 103 L (140-400) K/mcL Neutrophils # 3.8 (1.6-8.9) K/mcL BMP 05/16/16 06:07 Sodium 135 L Potassium 3.9 Chloride 109 Carbon Dioxide 16 L BUN 68 H Creatinine 2.06 H Glucose 44 L Calcium 8.3 L Cardiac Enzymes 05/16/16 Range/Units 06:07 Troponin I 0.05 H* (0-0.03) ng/mL - ABG Interpretation ABG results: PT/INR, D-dimer PT 13.3 Seconds (9.4-12.1) H 05/16/16 06:07 Consult Discharge Plan - Plan Referrals: NO,PCP [Primary Care Provider] -
[2016-05-16 14:55] LABS: Bilirubin,Urine Negative (Negative); Blood,Urine Negative (Negative); Clarity,Urine Clear (Clear); Color,Urine Yellow (Yellow); Glucose,Urine (UA) Normal (Normal); Ketones,Urine Negative (Negative); Leukocyte Esterase,Urine Negative (Negative); Nitrite,Urine Negative (Negative); Protein,Urine Negative (Neg-Trace); Specific Gravity,Urine 1.012 (1.010-1.025); Urobilinogen,Urine Normal (Normal)
[2016-05-16] MEDS ORDERED: *HR* LORazepam 0.5 MG TABLET PO PRN (20:17)
[2016-05-16] MEDS: Gabapentin 100 MG CAPSULE PO SCH (21:43)
[2016-05-16] MEDS ORDERED: D10% in Water 500 ML IV SOLUTION IVC SCH (21:45)
[2016-05-16] MEDS ORDERED: D10% in Water 500 ML IVC SCH (21:45)
[2016-05-16] MEDS: D10% in Water 500 ML IVC SCH (21:46)
[2016-05-17] MEDS: D10% in Water 500 ML IVC SCH ×2 (04:15→11:49)
[2016-05-17] MEDS: Pantoprazole 40 MG VIAL IVP SCH (05:46)
[2016-05-17] MEDS: *HR* Dextrose 50 % in Water (Syg) 50 ML SYRINGE IVP PRN ×2 (05:46→08:25)
[2016-05-17] MEDS: *HR* Heparin 5,000 UNIT/ML VIAL SQ SCH ×3 (05:47→21:35)
--- NOTE | 2016-05-17 06:17 | Electrocardiograph Report ---
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
[2016-05-17] MEDS: Gabapentin 100 MG CAPSULE PO SCH ×3 (07:52→21:35)
--- NOTE | 2016-05-17 08:20 | Internal Med Progress Note ---
Date of Encounter: 05/17/16 Time of Encounter: 08:18 - Assessment and plan (1) CKD (chronic kidney disease) stage 4, GFR 15-29 ml/min Current Visit: Yes Status: Chronic Assessment and plan: stable ericka recheck (2) Anemia Current Visit: No Status: Chronic Assessment and plan: chronic Qualifiers: Anemia type: B12 deficiency Vitamin B12 deficiency anemia type: unspecified B12 deficiency Qualified Code(s): D51.9 - Vitamin B12 deficiency anemia, unspecified (3) DM type 2 (diabetes mellitus, type 2) Current Visit: Yes Status: Chronic Assessment and plan: with hypoglycemic episodes due to no po intake and oral hypoglycemic agent glyburide needded Qualifiers: Diabetes mellitus complication status: with kidney complications Diabetes mellitus complication detail: with chronic kidney disease 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 Chronic kidney disease stage: stage 4 (severe) Qualified Code(s): E11.22 - Type 2 diabetes mellitus with diabetic chronic kidney disease; N18.4 - Chronic kidney disease, stage 4 (severe) (4) Elevated troponin Current Visit: Yes Status: Acute Assessment and plan: medical treatment elevation likely due to renal insuff no patthern of nstemi (5) Pancytopenia Current Visit: Yes Status: Chronic Assessment and plan: chronic (6) Dementia Current Visit: No Status: Chronic Qualifiers: Dementia type: unspecified type Dementia behavioral disturbance: with behavioral disturbance Qualified Code(s): F03.91 - Unspecified dementia with behavioral disturbance (7) Partial small bowel obstruction Current Visit: Yes Status: Acute Assessment and plan: no nausea and vomitting will resume feeding that should also alleviate hypoglycemic problem (8) Cirrhosis of liver Current Visit: Yes Status: Chronic Assessment and plan: chronic Qualifiers: Hepatic cirrhosis type: unspecified hepatic cirrhosis Ascites presence: with ascites Qualified Code(s): K74.60 - Unspecified cirrhosis of liver - Subjective Interval history: Patient with history of htn, high cholesterol, diabetes cad/cabg atrial fib has pacer, liver cirrhosis, renal failure admitted from [place] due to nausea and vomitting ct shows partial small bowel obstruction now has problem with hypoglycemia patient is on glyburide 5 mg bid started on d10 and iv hydration today still no nausea or vomitting still has episodes of hypoglycemia will start feeding and enema for bowel movement - Constitutional Vitals: Temp Pulse Resp BP Pulse Ox 98.4 F 60 14 107/64 98 05/17/16 06:52 05/17/16 06:52 05/17/16 06:52 05/17/16 06:52 05/17/16 06:52 General appearance: Present: A&O X 2 - Head Head exam: Present: atraumatic, normocephalic - Eye Eye exam: Present: PERRL, conjuntiva pink, sclera anicteric Pupils: Present: PERRL - Neck Neck exam general surgery: Present: supple, trachea midline. Absent: lymphadenopathy - Respiratory Respiratory exam: Present: CTAB. Absent: accessory muscle use, rales, rhonchi, wheezes - GI/Abdominal GI/Abdominal exam: Present: normal bowel sounds, soft, no peritoneal signs. Absent: distended, tenderness Internal Medicine: Result - Labs CBC & Chem 7: 05/16/16 06:07 05/16/16 06:07 Labs: Urine 05/16/16 Range/Units 14:30 Urine Color Yellow (Yellow) Urine Clarity Clear (Clear) Urine pH 6.0 (5.0-8.0) pH Units Ur Specific [place] 1.012 (1.010-1.025) Urine Protein Negative (Neg-Trace) mg/dL Urine Glucose (UA) Normal (Normal) mg/dL - ABG Interpretation ABG results: PT/INR, D-dimer PT 13.3 Seconds (9.4-12.1) H 05/16/16 06:07 Consult Discharge Plan - Plan Referrals: NO,PCP [Primary Care Provider] -
[2016-05-17 12:24] LABS: Calcium 8.1 mg/dL (8.6-10.8); Potassium 4.2 mEq/L (3.5-4.5)
[2016-05-17] MEDS ORDERED: D5% in Water 1,000 ML IVC PRN (17:19)
[2016-05-17] MEDS ORDERED: *HR* Dextrose 50 % in Water (Syg) 50 ML SYRINGE IVP PRN (17:19)
[2016-05-17] MEDS ORDERED: Dextrose Gel 15 GM PO PRN ×2 (17:19)
[2016-05-17] MEDS: D5% in 0.45% NACL 1,000 ML IVC SCH (17:38)
[2016-05-17] MEDS: Insulin LISPRO 300 UNITS/3 ML VIAL SQ SCH (21:16)
[2016-05-18] MEDS: Insulin LISPRO 300 UNITS/3 ML VIAL SQ SCH ×6 (00:01→20:45)
[2016-05-18] MEDS: Pantoprazole 40 MG VIAL IVP SCH (05:26)
[2016-05-18] MEDS: *HR* Heparin 5,000 UNIT/ML VIAL SQ SCH ×3 (05:26→20:45)
[2016-05-18 05:28] LABS: Hematocrit 25.1 % (37.5-50.1); Hemoglobin 7.8 g/dL (12.9-16.9); Immature Platelets 0.8 % (1.1-6.1); Mean Corpuscular HGB Conc 31.1 g/dL (31.6-35.5); Mean Platelet Volume 8.9 fL (9.4-12.4); Red Blood Count 2.79 M/mcL (4.19-5.50); Red Cell Distribution Width 16.4 % (11.5-14.5)
[2016-05-18 05:42] LABS: Calcium 8.1 mg/dL (8.6-10.8); Potassium 4.3 mEq/L (3.5-4.5)
[2016-05-18] MEDS: Gabapentin 100 MG CAPSULE PO SCH ×3 (08:43→20:46)
[2016-05-18] MEDS: D5% in 0.45% NACL 1,000 ML IVC SCH (08:44)
--- NOTE | 2016-05-18 09:17 | Internal Med Progress Note ---
<Jahaira Gomez - Last Filed: 05/18/16 09:13> Date of Encounter: 05/18/16 Time of Encounter: 09:13 - Assessment and plan (1) Ileus Current Visit: Yes Status: Acute Assessment and plan: Patient with recent right inguinal hernia repair Patient with abdominal pain on presentation, now resolved CT abdomen on admission with mild small bowel dilation and compressed ileum with no focal transition point Patient has been treated conservatively and was NPO, tolerated clear liquids yesterday Will continue IV fluids for now Will transition patient to full liquid diet and advance as tolerated to diabetic diet (2) Partial small bowel obstruction Current Visit: Yes Status: Acute Assessment and plan: Secondary to small bowel ileus treatment as outlined above (3) Hypoglycemia Current Visit: Yes Status: Acute Assessment and plan: Improving Patient presented with hypoglycemia, had been on glyburide prior to presentation Patient treated with IV dextrose. Patients blood sugar stabilized once on clear liquid diet (4) DM type 2 (diabetes mellitus, type 2) Current Visit: Yes Status: Chronic Assessment and plan: Patient on glyburide as outpatient Glyburide has increased risk of hypoglycemia in elderly Would consider discontinuing glyburide and using low to medium dose correction scale with meals and at night time before bed for patient to limit further episodes of hypoglycemia Advance diet as tolerated to diabetic diet Qualifiers: Diabetes mellitus complication status: with kidney complications Diabetes mellitus complication detail: with chronic kidney disease Diabetes mellitus fpc insulin use: unspecified fpc insulin use status Chronic kidney disease stage: stage 4 (severe) Qualified Code(s): E11.22 - Type 2 diabetes mellitus with diabetic chronic kidney disease; N18.4 - Chronic kidney disease, stage 4 (severe) (5) Cirrhosis Current Visit: Yes Status: Chronic Assessment and plan: CT abdomen with evidence of nodular liver suggestive of cirrhosis Patient with small amount of ascites MELD-Na score 21, Child Garces class B - patient with low mortality related to his liver disease May consider paracentesis if ascites worsens Would recommend follow up with GI for liver ultrasound for fibrosis as outpatient AST/ALT normal, however may be reflective of liver cirhhosis Bilirubin elevated at 1.4 Qualifiers: Hepatic cirrhosis type: unspecified hepatic cirrhosis Ascites presence: with ascites Qualified Code(s): K74.60 - Unspecified cirrhosis of liver (6) CKD (chronic kidney disease) stage 4, GFR 15-29 ml/min Current Visit: Yes Status: Chronic Assessment and plan: Patient with known CKD stage 4 BUn/Creatitine stable this admission Renally dose medications Avoid nephrotoxic medications (7) Status post hernia repair Current Visit: No Status: Acute Assessment and plan: Patient with recent inguinal hernia repair Stable (8) Elevated troponin Current Visit: Yes Status: Acute Assessment and plan: Likely secondary to CKD stage 4 and poor clearance of troponin EKG with no evidence of ST elevation Patient continues to deny any chest pain or pressure (9) Pancytopenia Current Visit: Yes Status: Chronic Assessment and plan: Chronic Patient follows with Heme/Onc as outpatient Would recommend further outpatient follow up as previously scheduled (10) Generalized weakness Current Visit: No Status: Acute Assessment and plan: Patient from [place] after hernia repair for rehab due to weakness Per review of social work notes, feels she would be unable to care for him at home, requests transfer back to home on discharge Will plan to transfer back once tolerating oral intake - Subjective Interval history: Patient seen and examined this morning. Patient presented to ER from [place] with concerns of hypoglycemia. Patient was found on CT abdomen to have mild small bowel dilation with compression of distal ileum with no focal point of transition, a nodular liver consistent with cirhhosis, mesh consistent with recent inguinal repair and diverticulitis without signs of diverticulosis. Patient was made NPO and required administration of IV fluids containing dextrose. He was treated conservatively for possible partial small bowel obstruction. He has been passing gas and has had many bowel movements. He was on clear liquid diet yesterday with no nausea of vomiting. Per review of social work notes, patient' s states she is unable to care for him at home given his current weakness and she would like him to go back to [facility]. Nurse spoke to who states she is concerned because patient has been to [place] numerous times and was never told he has liver issues but is always told he has liver issues when he comes here. Patient this morning denies any pain. He states he did not sleep well last night as he had vivid dreams. He does not think his abdomen looks more distended than usual but is not entirely sure. He is feeling hungry and would like something to eat. He denies any abdominal pain, shortness of breath, nausea or vomiting. He has no other acute concerns or complaints today. - Constitutional Vitals: Temp Pulse Resp BP Pulse Ox 97.4 F L 60 13 118/72 97 05/18/16 06:35 05/18/16 06:35 05/18/16 06:35 05/18/16 06:35 05/18/16 06:35 General appearance: Present: cooperative, A&O X 2, no acute distress - Head Head exam: Present: atraumatic, normocephalic - Eye Eye exam: Present: normal appearance, scleral icterus (mild bilaterally ) - ENT ENT exam: Present: mucous membranes moist, normal external ear exam - Neck Neck exam general surgery: Present: supple, trachea midline - Respiratory Respiratory exam: Present: CTAB. Absent: rales, rhonchi, stridor, wheezes - Cardiovascular Cardiovascular exam: Present: RRR, +S1, +S2. Absent: clicks, diastolic murmur, gallop, rubs, systolic murmur - GI/Abdominal GI/Abdominal exam: Present: normal bowel sounds, soft, no peritoneal signs. Absent: distended, guarding, rebound, tenderness - Extremities Exam Extremities exam: Present: normal capillary refill. Absent: pedal edema Internal Medicine: Result - Labs CBC & Chem 7: 05/18/16 05:00 05/18/16 05:00 Labs: Short CBC 05/18/16 Range/Units 05:00 WBC 4.5 (4.3-11.1) K/mcL Hgb 7.8 L (12.9-16.9) g/dL Hct 25.1 L (37.5-50.1) % Plt Count 86 L (140-400) K/mcL [facility] 05/17/16 05/18/16 09:57 05:00 Sodium 134 L 132 L Potassium 4.2 4.3 Chloride 108 106 Carbon Dioxide 19 16 L BUN 63 H 62 H Creatinine 2.17 H 2.17 H Glucose 80 83 Calcium 8.1 L 8.1 L - ABG Interpretation ABG results: PT/INR, D-dimer PT 13.3 Seconds (9.4-12.1) H 05/16/16 06:07 Consult Discharge Plan - Plan Referrals: Rashel Bowman MD [Non-Partnered Physician] - 05/27/16 1:30 pm <Diaz Melvin H - Last Filed: 05/18/16 15:22> - Constitutional Vitals: Temp Pulse Resp BP Pulse Ox 97.5 F L 60 14 117/74 97 05/18/16 12:00 05/18/16 12:00 05/18/16 12:00 05/18/16 12:00 05/18/16 12:00 Internal Medicine: Result - Labs CBC & Chem 7: 05/18/16 05:00 05/18/16 05:00 Labs: Short CBC 05/18/16 Range/Units 05:00 WBC 4.5 (4.3-11.1) K/mcL Hgb 7.8 L (12.9-16.9) g/dL Hct 25.1 L (37.5-50.1) % Plt Count 86 L (140-400) K/mcL BMP 05/18/16 05:00 Sodium 132 L Potassium 4.3 Chloride 106 Carbon Dioxide 16 L BUN 62 H Creatinine 2.17 H Glucose 83 Calcium 8.1 L - ABG Interpretation ABG results: PT/INR, D-dimer PT 13.3 Seconds (9.4-12.1) H 05/16/16 06:07 - Attending Attestation severe ascites likely related to cirrhosis schedule paracentesis (diagnostic and therapeutic) by IR in the morning check labs for ascitic fluid start Lasix, stop IVF check hepatitis panel partial small bowel obstruction may advance diet as tolerated I examined this patient and my medical decision-making was reviewed with the CHAPLAINCY/PA/Advanced Practice Nurse/Resident Physician. I agree with the documented findings, disposition and treatment plan as described except to the extent set forth below.
[2016-05-18] MEDS: Furosemide 40 MG/4 ML VIAL IV SCH ×2 (15:43→18:02)
[2016-05-19] MEDS: Insulin LISPRO 300 UNITS/3 ML VIAL SQ SCH ×7 (00:11→23:31)
[2016-05-19] MEDS ORDERED: *HR* Morphine 2 MG/ML SYRINGE IVP PRN (01:20)
[2016-05-19 05:10] LABS: Hemoglobin 7.6 g/dL (12.9-16.9); Red Cell Distribution Width 16.3 % (11.5-14.5)
[2016-05-19 05:12] LABS: Mean Corpuscular HGB Conc 31.7 g/dL (31.6-35.5); Mean Corpuscular Hemoglobin 28.3 pg (28.0-33.3); Mean Corpuscular Volume 89.2 fL (83.0-100.0); Red Blood Count 2.69 M/mcL (4.19-5.50)
[2016-05-19 05:19] LABS: Calcium 8.1 mg/dL (8.6-10.8); Potassium 4.4 mEq/L (3.5-4.5)
[2016-05-19] MEDS: *HR* Heparin 5,000 UNIT/ML VIAL SQ SCH ×3 (06:17→21:13)
[2016-05-19] MEDS: Pantoprazole 40 MG VIAL IVP SCH (06:18)
[2016-05-19] MEDS: Gabapentin 100 MG CAPSULE PO SCH ×3 (08:57→21:13)
[2016-05-19] MEDS: Furosemide 40 MG/4 ML VIAL IV SCH ×2 (08:59→16:50)
--- NOTE | 2016-05-19 09:04 | Internal Med Progress Note ---
<Jahaira Gomez - Last Filed: 05/19/16 09:00> Date of Encounter: 05/19/16 Time of Encounter: 09:01 - Assessment and plan (1) Cirrhosis of liver Current Visit: Yes Status: Chronic Assessment and plan: CT abdomen and pelvis with evidence of nodular liver suggestive of cirrhosis AST/ALT have been normal, could be secondary to amount of scarring in liver present Patient with evelated alkaline phosphatase and total bilirubin Patient with abdominal ascites MELD-Na score 21, Child Pucgh class B - patient with low mortality related to his liver disease Interventional radiology consulted with plan for diagnostic and therapeutic paracentesis today Further recommendations pending fluid results. Qualifiers: Hepatic cirrhosis type: unspecified hepatic cirrhosis Ascites presence: with ascites Qualified Code(s): K74.60 - Unspecified cirrhosis of liver (2) Ascites Current Visit: Yes Status: Acute Assessment and plan: Likely secondary to chronic cirrhosis. Interventional radiology with plan for diagnostic and therapeutic paracentesis today Fluid analysis, ceel counts and cultures ordered Continue IV lasix 40 mg BID Further recommendations pending paracentesis results Qualifiers: Ascites type: other type Qualified Code(s): R18.8 - Other ascites (3) Ileus Current Visit: Yes Status: Resolved Assessment and plan: Patient with recent right inguinal hernia repair Patient with abdominal pain, nausea and vomiting on presentation. He continues to have abdominal pain but this is likely secondary to distension from ascites. CT abdomen on admission with mild small bowel dilation and compressed ileum with no focal transition point Patient treated conservatively, initially NPO Patient has been tolerating full liquid diet iwth no nausea or vomiting. May consider advancing to soft diet today. Will transition patient to full liquid diet and advance as tolerated to diabetic diet (4) Partial small bowel obstruction Current Visit: Yes Status: Resolved Assessment and plan: Secondary to small bowel ileus Treatment as per above (5) Hypoglycemia Current Visit: Yes Status: Resolved Assessment and plan: Resolved Patient with type 2 diabetes mellitus, was on glyburide prior to admission. Hypoglycemia likely multifactorial. Glyburide in this age group has higher risk of hypoglycemia. Patient has also been nauseated and vomiting prior to arrival with lower oral intake. Patient required IV dextrose, currently stopped Blood sugars stabilized once patient able to take in oral intake (6) DM type 2 (diabetes mellitus, type 2) Current Visit: Yes Status: Chronic Assessment and plan: Patient on glyburide as outpatient Glyburide has increased risk of hypoglycemia in elderly, also advised to be used with caution in patients with renal and hepatic impairment which are both present in this patient Continue to hold glyburide. Would recommend consideration of discontinuing on discharge given contraindications and risk of further hypoglycemic events. Continue sliding scale while in hospital. WIll continue to advance diet to diabetic diet. 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 He reports he is status post right nephrectomy , unsure why his kidney was removed. Follows with Dr. Parker's group as outpatinet. Has fistula in place in upper right extremity, currently does not require dialysis. BUN/Creatitine stable this admission Renally dose medications Avoid nephrotoxic medications (8) Status post hernia repair Current Visit: No Status: Acute Assessment and plan: Patient with recent inguinal hernia repair Stable (9) Pancytopenia Current Visit: Yes Status: Chronic Assessment and plan: Chronic CBC has been stable this admission Patient follows with Heme/Onc as outpatient Would recommend further outpatient follow up as previously scheduled (10) Generalized weakness Current Visit: No Status: Acute Assessment and plan: Patient from [place] after hernia repair for rehab due to weakness Plan is to transfer back to [place] once patient is ready for discharge - Subjective Interval history: Patient seen and examined this morning. Patient with history of type 2 diabetes mellitus on glyburide presented to ER from [place] with concerns of hypoglycemia, abdominal pain, nausea and vomiting. Patient was found on CT abdomen to have mild small bowel dilation with compression of distal ileum with no focal point of transition, a nodular liver consistent with cirhhosis, mesh consistent with recent inguinal repair and diverticulitis without signs of diverticulosis. Patient required administration of IV fluids containing dextrose. Treated conservatively for possible partial small bowel obstruction. Patient has been tolerating diet. Overnight, he received IV morphine for abdominal pain. He has had no hypoglycemia for the last 24 hours. Patient this morning states that the medication he got in his IV for pain helped him significantly and he slept the remainder of the night. He reports thaht he did not have as many disturbing dreams last night as he did the night prior and feels that his sleep was better. He currently is complaining of some abdominal pain, but he states he is not sure how much of it is because he is hungry as he has not yet had breakfast this morning. He has no other acute concerns or complaints today. - Constitutional Vitals: Temp Pulse Resp BP Pulse Ox 97.6 F 60 16 107/67 100 05/19/16 07:14 05/19/16 07:14 05/19/16 07:14 05/19/16 07:14 05/19/16 07:14 General appearance: Present: cooperative, A&O X 2, no acute distress - Head Head exam: Present: atraumatic, normocephalic - Eye Eye exam: Present: normal appearance, scleral icterus (mild bilaterally ). Absent: conjunctival injection - ENT ENT exam: Present: mucous membranes moist, normal external ear exam, normal oropharynx - Neck Neck exam general surgery: Present: supple, trachea midline - Respiratory Respiratory exam: Present: CTAB. Absent: rales, rhonchi, stridor, wheezes - Cardiovascular Cardiovascular exam: Present: RRR, +S1, +S2. Absent: clicks, diastolic murmur, gallop, rubs, systolic murmur - GI/Abdominal GI/Abdominal exam: Present: distended (+ fluid wave), hypoactive bowel sounds, soft. Absent: guarding, rebound, tenderness - Extremities Exam Extremities exam: Present: normal capillary refill. Absent: pedal edema Internal Medicine: Result - Labs CBC & Chem 7: 05/19/16 04:49 05/19/16 04:49 Labs: Short CBC 05/19/16 Range/Units 04:49 WBC 4.0 L (4.3-11.1) K/mcL Hgb 7.6 L (12.9-16.9) g/dL Hct 24.0 L (37.5-50.1) % Plt Count 78 L (140-400) K/mcL BMP 05/19/16 04:49 Sodium 130 L Potassium 4.4 Chloride 107 Carbon Dioxide 17 L BUN 66 H Creatinine 2.17 H Glucose 81 Calcium 8.1 L - ABG Interpretation ABG results: PT/INR, D-dimer PT 13.3 Seconds (9.4-12.1) H 05/16/16 06:07 Consult Discharge Plan - Plan Referrals: Rashel Bowman MD [Non-Partnered Physician] - 05/27/16 1:30 pm <Diaz Melvin H - Last Filed: 05/19/16 10:33> - Constitutional Vitals: Temp Pulse Resp BP Pulse Ox 97.6 F 60 16 107/67 100 05/19/16 07:14 05/19/16 07:14 05/19/16 07:14 05/19/16 07:14 05/19/16 07:14 Internal Medicine: Result - Labs CBC & Chem 7: 05/19/16 04:49 05/19/16 04:49 Labs: Short CBC 05/19/16 Range/Units 04:49 WBC 4.0 L (4.3-11.1) K/mcL Hgb 7.6 L (12.9-16.9) g/dL Hct 24.0 L (37.5-50.1) % Plt Count 78 L (140-400) K/mcL BMP 05/19/16 04:49 Sodium 130 L Potassium 4.4 Chloride 107 Carbon Dioxide 17 L BUN 66 H Creatinine 2.17 H Glucose 81 Calcium 8.1 L - ABG Interpretation ABG results: PT/INR, D-dimer PT 13.3 Seconds (9.4-12.1) H 05/16/16 06:07 - Attending Attestation severe ascites likely related to cirrhosis schedule paracentesis (diagnostic and therapeutic) by IR today check labs for ascitic fluid, culture LDH etc continue Lasix, stopped IVF partial small bowel obstruction may advance diet as tolerated low fat low lactose may discharge back to [place] in the morning if stable I examined this patient and my medical decision-making was reviewed with the CLOTH WEAVER/PA/Advanced Practice Nurse/Resident Physician. I agree with the documented findings, disposition and treatment plan as described except to the extent set forth below.
[2016-05-19 12:52] LABS: Hepatitis A Antibody IgM Nonreactive (Nonreactive); Hepatitis B Core IgM Nonreactive (Nonreactive); Hepatitis B Surface Antigen Nonreactive (Nonreactive); Hepatitis C Virus Antibody Nonreactive (Nonreactive)
[2016-05-19 16:01] LABS: Amylase,Peritoneal Fluid 20 Units/L (No Ref Range); Glucose,Peritoneal Fluid 86 mg/dL (No Ref Range); LDH,Peritoneal Fluid 86 Units/L (No Ref Range); Total Protein,Peritoneal Fluid 3.1 g/dL (No Ref Range)
[2016-05-19 16:07] LABS: RBC,Peritoneal Fluid 0.044 M/mcL
[2016-05-19 16:25] LABS: Appearance of Peritoneal Fl BLOODY (Clear)
[2016-05-20] MEDS ORDERED: *HR* Morphine 2 MG/ML SYRINGE IVP PRN (01:25)
[2016-05-20] MEDS: Insulin LISPRO 300 UNITS/3 ML VIAL SQ SCH ×3 (03:57→11:43)
[2016-05-20] MEDS: *HR* Heparin 5,000 UNIT/ML VIAL SQ SCH (06:00)
[2016-05-20] MEDS: Pantoprazole 40 MG VIAL IVP SCH (06:00)
[2016-05-20 06:06] LABS: Red Cell Distribution Width 16.1 % (11.5-14.5)
[2016-05-20 06:08] LABS: Basophils % 0.6 %; Eosinophils # 0.1 K/mcL (0.0-0.6); Eosinophils % 3.4 %; Hematocrit 25.5 % (37.5-50.1); Immature Granulocytes % 0.8 % (0-4); Immature Platelets 0.8 % (1.1-6.1); Lymphocytes # 0.7 K/mcL (0.6-4.6); Lymphocytes % 19.7 %; Mean Corpuscular HGB Conc 31.4 g/dL (31.6-35.5); Mean Corpuscular Hemoglobin 27.6 pg (28.0-33.3); Mean Corpuscular Volume 87.9 fL (83.0-100.0); Mean Platelet Volume 8.5 fL (9.4-12.4); Monocytes # 0.4 K/mcL (0.0-1.3); Monocytes % 9.8 %; Segmented Neutrophils % 65.7 %
[2016-05-20 06:09] LABS: Neutrophils # 2.4 K/mcL (1.6-8.9)
[2016-05-20 06:10] LABS: Platelet Count 74 K/mcL (140-400)
[2016-05-20 06:21] LABS: Albumin 2.7 g/dL (3.5-5.0); Bilirubin,Total 1.2 mg/dL (0.2-1.2); Calcium 8.3 mg/dL (8.6-10.8); Potassium 4.3 mEq/L (3.5-4.5); Total Protein 5.3 g/dL (6.0-8.3)
[2016-05-20 06:22] LABS: Globulin 2.6 g/dL (2.4-3.5)
--- NOTE | 2016-05-20 08:17 | Discharge Summary ---
<Jahaira Gomez - Last Filed: 05/20/16 10:48> Date of Encounter: 05/19/16 Time of Encounter: 08:14 - Discharge Diagnosis (1) Cirrhosis of liver Priority: Primary Status: Chronic Comments: CT abdomen pelvis with evidence of nodular liver suggestive of cirrhosis AST and ALT normal, however could be secondary to the amount of scarring present in liver patient had elevated alkaline phospatase and normal bilirubin Patient with abdominal ascites MELD-Na score 21, Child Garces class B - patient with low mortality related to his liver disease Patient had paracentesis during stay with 4 L of fluid removed, no evidence of spontaneous bacterial peritonitis, fluid consistent with transudate Recommend follow up with gatroenterology as outpatient Will discharge on lasix 40 mg in morning and 20 mg in afternoon, will add spironolactone 25 mg daily, will ass potassium chloride 10 meq daily and will add lactulose 20 mg BID to hold if greater than 3 bowel movements per day Qualifiers: Hepatic cirrhosis type: unspecified hepatic cirrhosis Ascites presence: with ascites Qualified Code(s): K74.60 - Unspecified cirrhosis of liver (2) Ascites Priority: Primary Status: Acute Comments: Likely secondary to chronic cirrhosis Patient had 4 L fluid removed, fluid negatiev for spontaneous bacterial peritonitis, fluid consistent with transdudate Fluid culture and final analysis pending Further recommendations as per liver cirhhosis Qualifiers: Ascites type: other type Qualified Code(s): R18.8 - Other ascites (3) Ileus Priority: Primary Status: Resolved Comments: Patient had recent right inguinal hernia repair, may have been a precipitating factor to recent ileus along with abdominal ascites Patient initially presented with abdominal pain, nause and vomiting on presentation. Abdominal pain improved. CT abdomen/pelvis on admission with mild small bowel dilation with compressed ileum with no focal transition point Patient was initially NPO and was advanced to normal diet and was tolerating normal diet with no nausea or vomiting prior to discharge (4) Partial small bowel obstruction Priority: Primary Status: Resolved Comments: Secondary to small bowel ileus, treatment and course as outlined above. (5) Hypoglycemia Priority: Primary Status: Resolved Comments: Patient with known history of type 2 diabetes mellitus, was on glyburide and lantus prior to admission Hypoglycemia likely multifactorial. Glyburide in this age group has higher risk of hypoglycemia. Patient had also been nauseated prior to arrival and vomiting with lower oral intake in presence of long acting insulin. Patient with liver cirrhosis. Patient also on lantus which will have lower clearance in CKD stage 4 Patient initially required administration of fluids with IV dextrose. Patieny has had normal sugars once tolerating oral intake and has required minimal administration of additional insulin (6 units in last 24 hours) Given multiple co-morbidities of liver cirrhosis and CKD stage 4, will not continue any medication on discharge. Advise strict diet control with diabetic diet (6) DM type 2 (diabetes mellitus, type 2) Status: Chronic Comments: Patient on glyburide and lantus as outpatient Glyburide has increased risk of hypoglycemia in elderly, also advised to be used in caution in patients with renal and hepatic impairment which are both present in this patient. Patient also on lantus, his CKD stage 4 could lead to lower clearance of lantus making him more prone to hypoglycemia. Patient has been controlled on diabetic diet and has required minimum doses of additional meal time insulin. Given multiple co-morbidities, will not discharge patient on any medications. Advise continued monitoring and further adjustments as outpatient. Qualifiers: Diabetes mellitus complication status: with kidney complications Diabetes mellitus complication detail: with chronic kidney disease Diabetes mellitus penitentiary insulin use: unspecified termite helper insulin use status Chronic kidney disease stage: stage 4 (severe) Qualified Code(s): E11.22 - Type 2 diabetes mellitus with diabetic chronic kidney disease; N18.4 - Chronic kidney disease, stage 4 (severe) (7) CKD (chronic kidney disease) stage 4, GFR 15-29 ml/min Status: Chronic Comments: Patient with known CKD stage 4. He follows with Dr. Whittington outpatient, recommend further follow up as outpatient BUN and creatinine stable this admission COntinue renal protective strategy and avoidance of nephrotoxic medications (8) Status post hernia repair Status: Acute Comments: Stable Patient with recent right inguinal inguinal hernia (9) Pancytopenia Status: Chronic Comments: Chronic Blood counts has been stable this admission Recommend continued follow up with Heme/onc outpatient as previously scheduled (10) Generalized weakness Status: Acute Comments: Plan to transfer back to [facility] for further rehab - Discharge Medications Prescriptions: Furosemide [Lasix] 40 mg PO DAILY 30 Days Home Medications: Isosorbide MONOnitrate (24 HR) [Imdur] 30 mg PO DAILY 02/10/15 [History] Levothyroxine [Synthroid] 88 mcg PO DAILY 02/10/15 [History] Pravastatin Sodium 10 mg PO HS 01/21/16 [History] Carvedilol 12.5 mg PO BID 03/31/16 [History] Donepezil [Aricept] 10 mg PO HS #0 tablet 05/04/16 [Rx] Gabapentin [Neurontin] 100 mg PO TID #90 capsule 05/06/16 [Rx] LORazepam [Ativan] 0.5 mg PO Q4HR PRN #30 tablet 05/06/16 [Rx] Furosemide [Lasix] 20 mg PO DAILY #0 05/20/16 [Rx] Furosemide [Lasix] 40 mg PO DAILY 30 Days 05/20/16 [Rx] Lactulose 20 gm PO BID udc 05/20/16 [Rx] Omeprazole [PriLOSEC] 40 mg PO DAILY@0630 capsule. 05/20/16 [Rx] Spironolactone [Aldactone] 25 mg PO DAILY tablet 05/20/16 [Rx] Allergies/Adverse Reactions: Allergies Gtqceud-Gkh-Blw Reductase Inhibitor [Statins] Adverse Reaction (Verified 15:48) Muscle Pain Procedures/tests Complete & Pending: Procedures Performed prior 72 hours Category Date Time Status IR paracentesis ultrasound [IR] Stat IR 05/19/16 09:59 Completed Date of admission: 05/15/16 23:34 Primary care physician: PCP NO Discharging clinician: Diaz Melvin Anticipated date of discharge: 05/20/16 - Patient Status Disposition: Transfer SNF Condition: Good Functional capacity at discharge: bed bound Overall status at discharge: patient is progressing back to baseline - Discharge Instructions Follow Up With: Rashel Bowman MD [Non-Partnered Physician] - - Diet and Activity Activity: as per physical therapy Diet: diabetic diet, low salt diet Interval History: 75 year old male with history of [place], hypertension, hyperlipidemia, type 2 diabetes presented to the emergency room after feeling ill at [facility]. Had been vomiting and nauseated for approximately 24-48 hours prior to arrival with abdominal pain. A CT abdomen/pelvis was performed which demonstrated dilated small bowel with compressed distal ileum with no focal transition point. Surgery consulted while patient in ER and recommended conservative management. Of note, the patient recently had a inguinal hernia repair and had been discharged to [facility] for further rehab. Patient had his home medications of glyburide and lantus held due to concerns for hypoglycemia. He required administration of fluids containing IV dextrose to maintain his blood sugar. On the third hospital day, the patient was able to tolerate oral intake of clear liquids and his blood sugar stabilized with oral intake. He was advanced to diabetic cardiac diet and was tolerating oral intake with no nausea or vomiting prior to discharge. He required minimal amounts of sliding scale insulin with meals to control his blood sugar. He was also noted to have a nodular liver suggestive of cirrhosis on CT abdomen/ pelvis. AST and ALT were normal, patient did have elevated total bilirubin and alkaline phosphatase. Was found to have ascites and underwent a diagnostic and therapeutic paracentesis with 4L of fluid removed. Fluid analysis negative for any evidence of spontaneous bacterial peritonitis and consistent with transudate. He received albumin post paracentesis. He should follow up with a feeder tender as outpatient for further evaluation and management. He is known to be pancytopenic. His blood counts were monitored and remained stable during admission. He follows with hematology/oncology as outpatient and should attend his next appointment with them. He also has a known history fo CKD stage 4, with status post right nephrectomy. He follows with Dr. Wilkins as outpatient and has a fistula in place in right upper extremity if he should need dialysis in future. Recommend continued follow up with nephrology outpatient. He remained weak and will be discharged back to [facility] to complete his rehab prior to going home. Hospital course: Mr. Frye is a 75 year old male - Time Spent with Patient Total time spent providing and/or coordinating discharge services: - Constitutional Vitals: Temp Pulse Resp BP Pulse Ox 98.3 F 60 16 118/63 96 05/20/16 08:11 05/20/16 08:11 05/20/16 08:11 05/20/16 08:11 05/20/16 08:11 General appearance: Present: cooperative, A&O X 2, no acute distress - Head Head exam: Present: atraumatic, normocephalic - Eye Eye exam: Present: normal appearance, scleral icterus (mild bilaterally ). Absent: conjunctival injection - ENT ENT exam: Present: mucous membranes moist, normal external ear exam - Neck Neck exam general surgery: Present: supple, trachea midline - Respiratory Respiratory exam: Present: CTAB. Absent: rales, rhonchi, stridor, wheezes - Cardiovascular Cardiovascular exam: Present: RRR, +S1, +S2. Absent: clicks, diastolic murmur, gallop, rubs, systolic murmur - GI/Abdominal GI/Abdominal exam: Present: distended, hypoactive bowel sounds, soft. Absent: guarding, rebound, tenderness Additional comments: positive fluid wave - Extremities Exam Extremities exam: Present: normal capillary refill. Absent: pedal edema - Psychiatric Psychiatric exam: Present: normal affect <Diaz Melvin Braden - Last Filed: 05/20/16 10:58> Date of Encounter: 05/19/16 Procedures/tests Complete & Pending: Procedures Performed prior 72 hours Category Date Time Status IR paracentesis ultrasound [IR] Stat IR 05/19/16 09:59 Completed Date of admission: 05/15/16 23:34 Primary care physician: PCP NO Hospital course: Mr. Frye is a 75 year old male - Time Spent with Patient Total time spent providing and/or coordinating discharge services: - Constitutional Vitals: Temp Pulse Resp BP Pulse Ox 98.3 F 60 16 118/63 96 05/20/16 08:11 05/20/16 08:11 05/20/16 08:11 05/20/16 08:11 05/20/16 08:11 - Attending Attestation severe ascites likely related to cirrhosis s/p paracentesis (diagnostic and therapeutic) cytology pending, no signs of SBP check labs for ascitic fluid, culture LDH etc Lasix 40 mg in AM and 20 mg in the afternoon partial small bowel obstruction low fat low lactose diet I examined this patient and my medical decision-making was reviewed with the PLASTIC TILE SETTER/PA/Advanced Practice Nurse/Resident Physician. I agree with the documented findings, disposition and treatment plan as described except to the extent set forth below.
[2016-05-20] MEDS: Gabapentin 100 MG CAPSULE PO SCH (08:25)
[2016-05-20] MEDS: Furosemide 40 MG/4 ML VIAL IV SCH (08:26)
[2016-05-20] MEDS ORDERED: Spironolactone 25 MG TABLET PO SCH (09:00)
[2016-05-20] MEDS ORDERED: Lactulose Oral Soln 20 GM/30 ML UDC PO SCH (09:00)
--- NOTE | 2016-05-20 09:43 | Physician Discharge Referral ---
<PatriciaJahaira - Last Filed: 05/20/16 09:42> [facility] Referral Info Transfer To: [facility] Provider in Charge after Transfer: PCP, Other Institutional Level of Care: Skilled - Diagnosis (1) Cirrhosis of liver Status: Chronic (2) Ascites Status: Acute (3) Ileus Status: Resolved (4) Partial small bowel obstruction Status: Resolved (5) Hypoglycemia Status: Resolved (6) DM type 2 (diabetes mellitus, type 2) Status: Chronic (7) CKD (chronic kidney disease) stage 4, GFR 15-29 ml/min Status: Chronic (8) Status post hernia repair Status: Acute (9) Pancytopenia Status: Chronic (10) Generalized weakness Status: Acute - Transfer Medications Prescriptions: Furosemide [Lasix] 40 mg PO DAILY 30 Days Home Medications: Isosorbide MONOnitrate (24 HR) [Imdur] 30 mg PO DAILY 02/10/15 [History] Levothyroxine [Synthroid] 88 mcg PO DAILY 02/10/15 [History] Pravastatin Sodium 10 mg PO HS 01/21/16 [History] Carvedilol 12.5 mg PO BID 03/31/16 [History] Donepezil [Aricept] 10 mg PO HS #0 tablet 05/04/16 [Rx] Gabapentin [Neurontin] 100 mg PO TID #90 capsule 05/06/16 [Rx] LORazepam [Ativan] 0.5 mg PO Q4HR PRN #30 tablet 05/06/16 [Rx] Furosemide [Lasix] 20 mg PO DAILY #0 05/20/16 [Rx] Furosemide [Lasix] 40 mg PO DAILY 30 Days 05/20/16 [Rx] Lactulose 20 gm PO BID udc 05/20/16 [Rx] Omeprazole [PriLOSEC] 40 mg PO DAILY@0630 capsule. 05/20/16 [Rx] Spironolactone [Aldactone] 25 mg PO DAILY tablet 05/20/16 [Rx] Allergies/Adverse Reactions: Allergies Bweihyb-Mgs-Cio Reductase Inhibitor [Statins] Adverse Reaction (Verified 15:48) Muscle Pain - Respiratory Orders Smoking Cessation: Smoking cessation has been advised. For more information, call the [place] Tobacco Quit Line at 0-995-VSSB-NOW. CERTIFICATION: I certify that the transfer of the above named patient to an Extended Care Facility is necessary for the continuing treatment of the diagnosis listed. The above information is true and accurate reflection of patient's current condition. Confidential - Redisclosure prohibited without a patient's written consent. <Diaz Melvin Braden - Last Filed: 05/20/16 10:59> - Respiratory Orders Smoking Cessation: Smoking cessation has been advised. For more information, call the [place] Tobacco Quit Line at 9-213-TMAD-NOW. - Advance Directives Code Status: Full Code - Treatments List/Other: Follow up with GI within 2 weeks Lasix 40 mg in AM and 20 mg in the afternoon partial small bowel obstruction low fat low lactose diet I examined this patient and my medical decision-making was reviewed with the DRILLING SUPERINTENDENT/PA/Advanced Practice Nurse/Resident Physician. I agree with the documented findings, disposition and treatment plan as described except to the extent set forth below CERTIFICATION: I certify that the transfer of the above named patient to an Extended Care Facility is necessary for the continuing treatment of the diagnosis listed. The above information is true and accurate reflection of patient's current condition. Confidential - Redisclosure prohibited without a patient's written consent.
[2016-05-20 11:42] VITALS: BP 107/63
== END 2016-05-20 13:04 | DRG 389 ==
LOC: EMEROO 15:38 → 3ANU 15:38 → SUATTDRO 23:34
PROVIDERS: ADMIT Nurse Practitioner Family; ATTEND Internal Medicine

== ENCOUNTER 2017-12-11 06:31 | Inpatient (IN) ==
--- NOTE | 2017-12-11 07:11 | Emergency Department Note ---
START Narrative - START START: Patient with advanced cirrhosis, pancytopenia, stage IV chronic kidney disease, anemia, history of right kidney cancer status post nephrectomy in 2010, previous intracranial bleed. Patient's acute symptoms started yesterday when he is been trying to use the bathroom and was weak and unable to get off the toilet by himself. helped him transfer and continue to monitor him. Today he woke with the dry heaving and complaints of a headache as well as ringing in his ears. Patient is on the toilet at this time. Unable to perform a complete physical exam. He does have a distended abdomen. He is jaundiced. He is dry heaving and appearing to be constipated. His abdomen is distended without specific tenderness. Upon leaving the room the day shift physician has arrived and the case and information has been discussed. They have accepted care of the patient and do not want any initial orders until they have a chance to evaluate the patient.
[2017-12-11] MEDS ORDERED: Ondansetron 4 MG/2 ML VIAL IVP ONE (07:12)
--- NOTE | 2017-12-11 07:17 | Emergency Department Note ---
Disposition Clinical Impression: Hepatic encephalopathy, Pleural effusion, right, Generalized weakness Disposition: Admitted As Inpatient Condition: Fair Referrals: Rashel Bowman MD [Primary Care Provider] - Forms: ED Satisfaction Letter Time of Disposition: 10:52 General Adult HPI - General Chief complaint: ED Weakness Stated complaint: headache Time Seen by Provider: 12/11/17 06:39 Source: patient Mode of arrival: EMS Limitations: no limitations - History of Present Illness HPI Narrative: This is a 77-year-old male who comes to emergency department with his because of weakness. He was too weak to get out of a chair this morning. This is worse than he was yesterday. His states that he also has decreased hearing starting yesterday. She states his new hearing aid with new batteries was not effective for him starting at least 12-18 hours prior to arrival. He reports a diffuse headache, nausea, and feels confused. Pain Scale: 0 - Related Data Home Medications Medication Instructions Recorded Confirmed Isosorbide MONOnitrate (24 HR) 30 mg PO DAILY 02/10/15 11/24/17 [Imdur] Levothyroxine [Synthroid] 88 mcg PO DAILY 02/10/15 11/24/17 Carvedilol 12.5 mg PO BID 03/31/16 11/24/17 Gabapentin [Neurontin] 100 mg PO DAILY 07/29/16 11/24/17 Insulin Glargine,Hum.rec.anlog 10 unit SQ QAM 04/19/17 11/24/17 [Lantus Solostar] Allopurinol [Zyloprim] 300 mg PO DAILY 10/18/17 11/24/17 Esomeprazole Magnesium [Nexium] 20 mg PO DAILY 10/18/17 11/24/17 Lactulose 10 gm PO DAILY 10/18/17 11/24/17 Previous Rx's Medication Instructions Recorded LORazepam [Ativan] 0.5 mg PO Q4HR PRN #30 tablet 05/06/16 Furosemide [Lasix] 40 mg PO DAILY 30 Days tab 05/20/16 Potassium Chloride 20 meq PO BID #60 tab.er.prt 10/18/17 Allergies Allergy/AdvReac Type Severity Reaction Status Date / Time Vnobfmj-Ewo-Bac Reductase AdvReac Muscle Pain Verified 12/11/17 08:30 Inhibitor [Statins] All systems ED: reviewed and negative except as stated. Constitutional: Reports: weakness. Denies: fever Cardiovascular: Denies: chest pain Respiratory: Denies: dyspnea Gastrointestinal: Reports: abdominal pain Neurological: Reports: headache, weakness Past Medical History - Past Medical History Medical history: Reports: atrial fibrillation, cancer, CHF, CVA, diabetes, hyperlipidemia, hypertension, myocardial infarction, renal disease, other Surgical history: Reports: coronary bypass (CABG), other, pacemaker Psychiatric history: Reports: no psych history - Social History Smoking Status: Former smoker Smokeless Tobacco Status: No Alcohol use: Reports: none Drug use: Reports: none Physical Exam - General Limitations: other (Very poor hearing) General appearance: alert, in distress (In mild distress with nausea, started vomiting) - Head Head exam: atraumatic, normocephalic, normal inspection - Eye Eye exam: Present: PERRL, EOMI, scleral icterus (There is mild scleral icterus) - Chest Chest inspection: Present: normal inspection, symmetric chest wall rise - Respiratory Respiratory exam: Present: other (Breath sounds are decreased in all aviles). Absent: respiratory distress, wheezes - Cardiovascular Cardiovascular exam: Present: regular rate, normal rhythm, normal heart sounds - Abdominal Exam Abdominal exam: Present: soft, tenderness, distention. Absent: guarding, rebound, rigidity Abdominal tenderness: Present: diffuse, mild - Extremities Exam Extremities exam: Present: normal inspection, pedal edema (2+ bilateral pedal edema at the proximal calves) - Neurological Exam Neurological exam: Present: alert, oriented X3, CN II-XII intact. Absent: motor sensory deficit - Psychiatric Psychiatric exam: Present: normal affect - Skin Skin exam: Present: warm, dry, other (There is ecchymosis on the patient's ab dominal wall.) Course Course Narrative: This is a 77-year-old male with a very complicated past medical history including advanced cirrhosis Vital Signs Temperature 97.6 F 12/11/17 06:43 Pulse Rate 59 12/11/17 06:43 Respiratory Rate 18 12/11/17 06:43 Blood Pressure 120/90 12/11/17 06:43 O2 Sat by Pulse Oximetry 99 12/11/17 06:43 Temperature 97.6 F 12/11/17 06:43 Pulse Rate 62 12/11/17 08:25 Respiratory Rate 20 12/11/17 08:25 Blood Pressure 111/65 12/11/17 08:25 O2 Sat by Pulse Oximetry 99 12/11/17 08:25 Oxygen Delivery Oxygen Delivery Room Air Medical Decision Making - MDM Narrative Medical decision making narrative: This is a 77-year-old male who appears to have hepatic encephalopathy along with a slight hypokalemia and a large right pleural effusion. Because the right pleural effusion might be infectious, Zosyn and azithromycin were ordered for antibacterial treatment. Potassium chloride was given because hypokalemia I discussed his case with the on-call hospitalist, who accepted him for admission - Lab Data Lab results reviewed: Yes I reviewed the patient's lab results. Lab results narrative: CBC showed anemia at 10 and 31.3 with thrombocytopenia at 94 BMP shows hypokalemia at 3.2, albumin elevated at 48 and creatinine elevated at 1.88 Lactate was low at 0.7 Ammonia was elevated at 57 Troponin was low Result diagrams: 12/11/17 07:44 12/11/17 07:44 Lab Results 12/11/17 12/11/17 12/11/17 Range/Units 07:44 07:44 07:44 WBC 5.8 (4.3-11.1) K/mcL RBC 3.62 L (4.19-5.50) M/mcL Hgb 10.0 L (12.9-16.9) g/dL Hct 31.3 L (37.5-50.1) % MCV 86.5 (83.0-100.0) fL MCH 27.6 L (28.0-33.3) pg MCHC 31.9 (31.6-35.5) g/dL RDW 13.3 (11.5-14.5) % Plt Count 94 L (140-400) K/mcL MPV 8.4 L (9.4-12.4) fL Immature Gran % 0.3 (0-4) % Seg Neutrophils % 69.4 % Lymphocytes % 15.0 % Monocytes % 9.9 % Eosinophils % 4.5 % Basophils % 0.9 % Neutrophils # 4.0 (1.6-8.9) K/mcL Lymphocytes # 0.9 (0.6-4.6) K/mcL Monocytes # 0.6 (0.0-1.3) K/mcL Eosinophils # 0.3 (0.0-0.6) K/mcL Basophils # 0.1 (0.0-0.2) K/mcL Immature Plt Fraction 0.7 L (1.1-6.1) % Sodium 134 L (136-145) mEq/L Potassium 3.2 L (3.5-5.1) mEq/L Chloride 106 (98-107) mEq/L Carbon Dioxide 21 L (23-29) mEq/L BUN 48 H (8-23) mg/dL Creatinine 1.81 H (0.70-1.30) mg/dL Est GFR ( Amer) 45 L (> 60) Est GFR (Non-Af Amer) 37 L (> 60) BUN/Creatinine Ratio 27 H (6-26) Glucose 74 (70-105) mg/dL Calculated Osmolality 289 (280-300) Lactic Acid 0.7 (0.5-2.2) mmol/L Calcium 8.3 L (8.6-10.3) mg/dL Total Bilirubin 1.0 (0.3-1.0) mg/dL AST 9 L (13-39) Units/L ALT 3 L (7-52) Units/L Alkaline Phosphatase 143 H (34-104) Units/L Ammonia (16-53) mcmol/L Troponin I 0.03 (< 0.04) ng/mL Serum Total Protein 6.3 L (6.4-8.9) g/dL Albumin 3.0 L (3.5-5.7) g/dL Globulin 3.3 (2.4-3.5) g/dL Albumin/Globulin Ratio 0.9 L (1.1-2.2) 12/11/17 Range/Units 07:44 WBC (4.3-11.1) K/mcL RBC (4.19-5.50) M/mcL Hgb (12.9-16.9) g/dL Hct (37.5-50.1) % MCV (83.0-100.0) fL MCH (28.0-33.3) pg MCHC (31.6-35.5) g/dL RDW (11.5-14.5) % Plt Count (140-400) K/mcL MPV (9.4-12.4) fL Immature Gran % (0-4) % Seg Neutrophils % % Lymphocytes % % Monocytes % % Eosinophils % % Basophils % % Neutrophils # (1.6-8.9) K/mcL Lymphocytes # (0.6-4.6) K/mcL Monocytes # (0.0-1.3) K/mcL Eosinophils # (0.0-0.6) K/mcL Basophils # (0.0-0.2) K/mcL Immature Plt Fraction (1.1-6.1) % Sodium (136-145) mEq/L Potassium (3.5-5.1) mEq/L Chloride (98-107) mEq/L Carbon Dioxide (23-29) mEq/L BUN (8-23) mg/dL Creatinine (0.70-1.30) mg/dL Est GFR ( Amer) (> 60) Est GFR (Non-Af Amer) (> 60) BUN/Creatinine Ratio (6-26) Glucose (70-105) mg/dL Calculated Osmolality (280-300) Lactic Acid (0.5-2.2) mmol/L Calcium (8.6-10.3) mg/dL Total Bilirubin (0.3-1.0) mg/dL AST (13-39) Units/L ALT (7-52) Units/L Alkaline Phosphatase (34-104) Units/L Ammonia 57 H (16-53) mcmol/L Troponin I (< 0.04) ng/mL Serum Total Protein (6.4-8.9) g/dL Albumin (3.5-5.7) g/dL Globulin (2.4-3.5) g/dL Albumin/Globulin Ratio (1.1-2.2) - Radiology Data Radiology results reviewed: Yes I reviewed the patient's radiology results. Chest x-ray shows a large right pleural effusion and associated atelectasis ve rsus pneumonia CT head shows no acute intracranial abnormality CT abdomen/pelvis shows no acute findings but cirrhotic liver, sequelae of portal hypertension, large right pleural effusion with no significant inflammatory stranding Masslike consolidative opacities in the partially collapsed right middle and lower lobes - EKG Data EKG #1 EKG attestation: Yes I reviewed and interpreted this EKG. EKG results narrative: ECG shows a paced rhythm at 64 bpm, wide QRS, and typical left bundle branch block with ST deviations none of which violate Sgarbossa criteria Critical Care Time Critical Care Time: Yes Total Critical Care Time: 20 Attestation: 20 minutes of critical care time was invested independent of separately billable procedures
[2017-12-11] MEDS ORDERED: *HR* Promethazine 25 MG/ML VIAL IVP ONE (07:18)
[2017-12-11 07:59] LABS: Red Cell Distribution Width 13.3 % (11.5-14.5)
[2017-12-11 08:01] LABS: Basophils # 0.1 K/mcL (0.0-0.2); Basophils % 0.9 %; Eosinophils # 0.3 K/mcL (0.0-0.6); Eosinophils % 4.5 %; Hematocrit 31.3 % (37.5-50.1); Immature Granulocytes % 0.3 % (0-4); Immature Platelets 0.7 % (1.1-6.1); Lymphocytes # 0.9 K/mcL (0.6-4.6); Mean Corpuscular HGB Conc 31.9 g/dL (31.6-35.5); Mean Corpuscular Hemoglobin 27.6 pg (28.0-33.3); Mean Corpuscular Volume 86.5 fL (83.0-100.0); Mean Platelet Volume 8.4 fL (9.4-12.4); Monocytes # 0.6 K/mcL (0.0-1.3); Monocytes % 9.9 %; Red Blood Count 3.62 M/mcL (4.19-5.50); Segmented Neutrophils % 69.4 %
[2017-12-11 08:11] LABS: Platelet Count 94 K/mcL (140-400)
[2017-12-11 08:15] LABS: Albumin/Globulin Ratio 0.9 (1.1-2.2); Calcium 8.3 mg/dL (8.6-10.3); Globulin 3.3 g/dL (2.4-3.5); Potassium 3.2 mEq/L (3.5-5.1); Total Protein 6.3 g/dL (6.4-8.9)
[2017-12-11 08:16] LABS: Troponin I 0.03 ng/mL (< 0.04)
[2017-12-11] MEDS ORDERED: Azithromycin 500 MG in D5% in Water 250 ML IVPB ONE (10:53)
[2017-12-11] MEDS ORDERED: Piperacillin/Tazobactam 3.375 GM in 0.9 % Sodium Chloride Mini Bag 100 ML IVPB ONE (10:53)
[2017-12-11 14:14] LABS: INR 1.4; Prothrombin Time 15.3 Seconds (9.4-12.1)
[2017-12-11] MEDS ORDERED: Lactulose Oral Soln 20 GM/30 ML UDC PO PRN (15:00)
--- NOTE | 2017-12-11 15:17 | Internal Med History&Physical ---
Date of Encounter: 12/11/17 Time of Encounter: 15:05 Internal Medicine - H&P: HPI Chief complaint: weakness, 'did not feel right' Admitted From: Home Plans for Post Hospital Care: Transfer Residential Facility History of present illness: Mr. Frye is a 77 year old male past medical history of CAD status post CABG a nd A. fib status post pacemaker/AICD, diabetes, hypertension, hyperlipidemia, CVA hemorrhagic, CHF, severe pulmonary hypertension, chronic kidney disease came to ER with complaint of feeling fatigue and S and unsteady on his feet and weakness. Most of the history was obtained from at bedside and previous charts as patient is slightly drowsy and very heart to hearing. Patient was relatively okay 2-3 days ago however since past one day he was slow to react as per patient's . Yesterday night patient the was feeling very weak and was very unstable walking and requested his to bring to ER. Patient had chest x-ray, CT abdomen and pelvis and head CT and lab work done in ER. Abdomen pelvis showed significant ascites as well as large right-sided pleural effusion which is loculated but without significant inflammatory standing suggesting less likely to be empyema. Partially collapsed right middle and right lower lobes. Head CT was unremarkable. Lab significant for anemia wi th hemoglobin at around baseline. Per patient's patient receives Aranesp every few weeks to keep his hemoglobin high from his oncologist. CMP significant for mild hyponatremia and hypokalemia, elevated creatinine around his baseline, elevated ammonia and alkaline phosphatase and decreased liver function test. Patient was suspected to have hepatic encephalopathy and admission was requested. He received potassium, promethazine, Zofran, Zosyn and azithromycin in the ER. On interview patient lying in bed in no acute distress easily arousable however due to difficulty hearing not able to provide much history. Denies any chest pain or back pain. Has on and off lower abdomen minimal tenderness however it was on and off for a long time. Denies any urinary or bowel difficulties. Per patient had a large BM this morning. Denies any fevers however complain of some chills. Per patient was being seen at [facility]. Has been compliant with his medication. Has last paracentesis in September and had a neck schedule in December. Patient had right nephrectomy in 2010 due to kidney cancer. Per has increased leg swelling and abdominal distention compared to before. Discussed CODE STATUS with the patient's and based on her discussion with him before once he does not want chest compression or breathing support with ventilator. Past Med Surg Social Fam HX - Past Medical History Attestation: Yes The following information was validated with the patient. Medical history: atrial fibrillation, cancer, CHF, CVA, diabetes, hyperlipidemia, hypertension, myocardial infarction, renal disease, other Additional medical history: thrombocytopenia, renal cancer, stage 4 kindey disease Psychiatric history: no psych history - Past Surgical History Surgical History: coronary bypass (CABG), other, pacemaker Additional surgical history: hernia repair 2017, left nephrectomy - Social History Smoking Status: Former smoker Smokeless Tobacco Status: No Alcohol use: none Drug use: none - Family History Father Living Status: Hx Family Cardiac Disorders: Yes - Additional Family History Additional family history: Strokes and diabetes. Internal Medicine - H&P: Meds Carvedilol [Coreg] 25 mg PO DAILY 12/11/17 [History] Furosemide [Lasix] 40 mg PO DAILY 12/11/17 [History] Gabapentin [Neurontin] 100 mg PO DAILY 12/11/17 [History] Insulin Glargine,Hum.rec.anlog [Lantus Solostar] 10 unit SQ 0700 12/11/17 [History] Isosorbide MONOnitrate (24 HR) [Imdur] 30 mg PO DAILY 12/11/17 [History] Lactulose [Enulose] 10 gm PO TID PRN 12/11/17 [History] Levothyroxine [Synthroid] 88 mcg PO 0630 12/11/17 [History] Omeprazole [PriLOSEC] 20 mg PO DAILY 12/11/17 [History] Potassium Chloride [Klor-Con 10] 20 meq PO BID 12/11/17 [History] Pravastatin Sodium 10 mg PO HS 12/11/17 [History] Allergy/AdvReac Type Severity Reaction Status Date / Time [id number] Reductase AdvReac Muscle Pain Verified 12/11/17 11:28 Inhibitor [Statins] All Systems PM: A 10-system review of systems was performed and is negative for pertinent findings except as documented above in the HPI. - Constitutional Vitals: Temp Pulse Resp BP Pulse Ox 97.6 F 60 20 86/67 99 12/11/17 06:43 12/11/17 11:32 12/11/17 11:32 12/11/17 11:32 12/11/17 11:32 General appearance: Present: no acute distress Exam: Constitutional: Vitals HR 60 paced, RR 16 saturating 99% room air, BP 104/67 No Apparent Distress. Hard to hearing Eyes : Sclera Icteric, conjunctiva clear, no lid lag, PEARLA. ENT : Significantly decreased hearing. Oropharyngeal exam unremarkable. Dry Moist mucus. no cervical lymphadenopathy. no thyromegaly or mass. Respiratory : No accessory muscle use, rhonchi or wheezes. Decreased air entry to Rt wit some rales. Cardiovascular : RRR, +S1, +S2. no murmur, gallop, rubs. No chest wall tenderness GI/Abdominal : Soft, Non-tender, Significantly Distended with fluid thrill, normal bowel sounds, no peritoneal signs. no orgenomegaly or mass appreciated. no hernia. Musculoskeletal: no deformity noted. 1+ edema or cyanosis. warm extremities, pulses palpable and symmetrical in UE/LE. no calf tenderness. Neurological: AO X1, Hard to hear at baseline, CN II-XII grossly intact, following simple commands. Moving all extremities. grossly normal motor and sensory exam. Skin: ecchymosis and liver stigmata noticed. Pych: Not able to assess. Internal Med - H&P Results - Labs CBC & Chem 7: 12/11/17 07:44 12/11/17 07:44 Labs: Short CBC 12/11/17 Range/Units 07:44 WBC 5.8 (4.3-11.1) K/mcL Hgb 10.0 L (12.9-16.9) g/dL Hct 31.3 L (37.5-50.1) % Plt Count 94 L (140-400) K/mcL Neutrophils # 4.0 (1.6-8.9) K/mcL BMP 12/11/17 07:44 Sodium 134 L Potassium 3.2 L Chloride 106 Carbon Dioxide 21 L BUN 48 H Creatinine 1.81 H Glucose 74 Calcium 8.3 L Cardiac Enzymes 12/11/17 Range/Units 07:44 Troponin I 0.03 (< 0.04) ng/mL Liver Function 12/11/17 Range/Units 07:44 Total Bilirubin 1.0 (0.3-1.0) mg/dL AST 9 L (13-39) Units/L ALT 3 L (7-52) Units/L Alkaline Phosphatase 143 H (34-104) Units/L Albumin 3.0 L (3.5-5.7) g/dL - Impressions ITS Impressions Chest X-Ray 12/11/17 07:12 IMPRESSION: Large right-sided effusion and associated airspace disease which could represent atelectasis or pneumonia. D/ / Marcus Andrade MD / Marcus Andrade MD Interpreting Provider: Marcus Andrade MD Head CT 12/11/17 07:13 IMPRESSION: 1. No acute intracranial abnormality. 2. Unchanged encephalomalacia in the left temporal lobe. 3. Mild age-appropriate diffuse atrophy with severe chronic small vessel ischemic changes. 4. Partial inclusion near complete opacification of the left maxillary sinus with hyperdense central contents, suggesting chronic disease with possible superimposed fungal sinusitis. D/ / Eliseo Nunez MD / Eliseo Nunez MD Interpreting Provider: Eliseo Nunez MD Abdomen/Pelvis CT 12/11/17 07:14 IMPRESSION: 1. No acute findings in the abdomen or pelvis. 2. Cirrhotic liver with no visualized focal lesion. 3. Sequelae of portal hypertension, including dilation of the main portal vein, formation of a spontaneous splenorenal shunt, mild splenomegaly, and moderate to large ascites. Additionally, there is suspected portal colopathy. 4. New loculation of a now large right pleural effusion with associated right pleural thickening. There is no significant inflammatory stranding in the right extrapleural fat to suggest empyema. New masslike consolidative opacities in the underlying partially collapsed right middle and right lower lobes likely represent associated rounded atelectasis. 5. Trace to small left pleural effusion and mild anasarca. 6. Additional incidental findings as above. D/ / Eliseo Nunez MD / Eliseo Nunez MD Interpreting Provider: Eliseo Nunez MD - Assessment and plan (1) Hepatic encephalopathy Current Visit: Yes Status: Acute Assessment and plan: Patient has advanced liver cirrhosis history - Patient currently has altered mental status and weakness likely from hepatic encephalopathy - Patient's ammonia level is elevated. - Likely precipitated by large pleural effusion on the right on CT. It is loculated however without any signs of infection to suggest empyema. Associated collapsed right middle and lower lobe. - Patient was given a dose of Zosyn and azithromycin. We will continue for now - We will consult IR to do a diagnostic and therapeutic tap tomorrow morning. - We will diurese patient with Lasix 40 BID and albumin. - Patient would need therapeutic paracentesis. Does not appear to have any signs of SBP. We will arrange for tap tomorrow morning if not able to get it done today. - Bedside swallow evaluation and continue lactulose if able to take, to maintain 2-3 bowel movements a day. We will also start rifaximin. - We will consult gastroenterology and nephrology (2) Generalized weakness Current Visit: Yes Status: Acute Assessment and plan: - Likely related to chronic illnesses and hepatic encephalopathy, pleural effusions and ascites - Treatment as above (3) Pleural effusion, right Current Visit: Yes Status: Acute Assessment and plan: - We will plan for diagnostic and therapeutic Tomorrow - We will discuss with IR to put chest tube if appears to be empyema/loculated. - Currently patient does not appear to be septic to suggest empyema - Continue empiric antibiotics Zosyn has not azithromycin - Collect blood and sputum culture (4) Ascites Current Visit: No Status: Acute Assessment and plan: -As above Qualifiers: Ascites type: other type Qualified Code(s): R18.8 - Other ascites (5) DVT prophylaxis Current Visit: No Status: Acute Assessment and plan: - heparin sc (6) Hypokalemia Current Visit: No Status: Acute Assessment and plan: - 20 meq of KCL repleted - We will give 20 more (7) CKD (chronic kidney disease) stage 4, GFR 15-29 ml/min Current Visit: No Status: Chronic Assessment and plan: Patient has stage IV security - Currently decompensated with ascites and pleural effusion and pedal edema - Also has history of CHF and liver cirrhosis - We will start diuresing with Lasix 40 twice a day and albumin - Strict ins and outs - Avoid nephrotoxins - Consult nephrology (8) Cirrhosis Current Visit: No Status: Chronic Assessment and plan: - MELD score of 18 - Was told before that he is not a candidate for transplant. - Management as above - Gastroenterology consulted Qualifiers: Hepatic cirrhosis type: unspecified hepatic cirrhosis Ascites presence: with ascites Qualified Code(s): K74.60 - Unspecified cirrhosis of liver (9) DM type 2 (diabetes mellitus, type 2) Current Visit: No Status: Chronic Assessment and plan: - Blood sugar on the lower end. - Monitor Accu-Cheks before meals at bedtime for now Qualifiers: Diabetes mellitus fdc insulin use: unspecified manager administration insulin use status Diabetes mellitus complication status: with kidney complications Diabetes mellitus complication detail: with chronic kidney disease Chronic kidney disease stage: stage 4 (severe) Qualified Code(s): E11.22 - Type 2 diabetes mellitus with diabetic chronic kidney disease; N18.4 - Chronic kidney disease, stage 4 (severe) (10) Hypothyroid Current Visit: No Status: Chronic Assessment and plan: - Continue home levothyroxine Qualifiers: Hypothyroidism type: unspecified Qualified Code(s): E03.9 - Hypothyroidism, unspecified (11) Pulmonary hypertension Current Visit: No Status: Chronic (12) Thrombocytopenia Current Visit: No Status: Chronic Assessment and plan: - Most likely from his liver cirrhosis - Monitor for now (13) Anemia in CKD (chronic kidney disease) Current Visit: Yes Status: Acute Assessment and plan: - Patient was receiving Aranesp every 2 weeks from oncologist - Currently appears to be around baseline of 9-10 Qualifiers: Qualified Code(s): N18.9 - Chronic kidney disease, unspecified; D63.1 - Anemia in chronic kidney disease - Time Spent With Patient Total time spent is greater than 50% in coordination of care (as documented) at patient's floor/unit and/or counseling patient:
[2017-12-11 15:56] LABS: Bilirubin,Urine Negative (Negative); Blood,Urine Negative (Negative); Clarity,Urine Clear (Clear); Color,Urine Yellow (Yellow); Glucose,Urine (UA) Normal (Normal); Ketones,Urine Negative (Negative); Leukocyte Esterase,Urine Negative (Negative); Nitrite,Urine Negative (Negative); Protein,Urine Negative (Neg-Trace); Specific Gravity,Urine 1.018 (1.010-1.025); Urobilinogen,Urine Normal (Normal)
[2017-12-11] MEDS: Furosemide 40 MG/4 ML VIAL IVP SCH (17:23)
[2017-12-11] MEDS: Lactulose Oral Soln 20 GM/30 ML UDC PO SCH ×2 (17:24→20:48)
[2017-12-11] MEDS ORDERED: *HR* Dextrose 50 % in Water (Syg) 50 ML SYRINGE IVP PRN (17:50)
[2017-12-11] MEDS ORDERED: Dextrose Gel 15 GM/37.5 ML TUBE PO PRN ×2 (17:50)
[2017-12-11] MEDS ORDERED: D5% in Water 1,000 ML IVC PRN (17:50)
[2017-12-11] MEDS ORDERED: Piperacillin/Tazobactam 3.375 GM in 0.9 % Sodium Chloride Mini Bag 100 ML IVPB SCH (19:00)
[2017-12-11] MEDS: Insulin LISPRO 300 UNITS/3 ML VIAL SQ SCH (22:03)
[2017-12-12 05:12] LABS: Eosinophils # 0.1 K/mcL (0.0-0.6); Eosinophils % 3.2 %; Hematocrit 29.6 % (37.5-50.1); Hemoglobin 9.1 g/dL (12.9-16.9); Immature Granulocytes % 0.5 % (0-4); Immature Platelets 1.1 % (1.1-6.1); Lymphocytes # 0.6 K/mcL (0.6-4.6); Lymphocytes % 14.8 %; Mean Corpuscular HGB Conc 30.7 g/dL (31.6-35.5); Mean Corpuscular Hemoglobin 26.9 pg (28.0-33.3); Mean Corpuscular Volume 87.6 fL (83.0-100.0); Mean Platelet Volume 8.6 fL (9.4-12.4); Monocytes # 0.4 K/mcL (0.0-1.3); Monocytes % 9.6 %; Neutrophils # 2.9 K/mcL (1.6-8.9); Red Blood Count 3.38 M/mcL (4.19-5.50); Red Cell Distribution Width 13.6 % (11.5-14.5); Segmented Neutrophils % 70.9 %
[2017-12-12 05:19] LABS: Platelet Count 68 K/mcL (140-400)
[2017-12-12 05:30] LABS: Calcium 8.3 mg/dL (8.6-10.3)
[2017-12-12] MEDS: Insulin LISPRO 300 UNITS/3 ML VIAL SQ SCH ×4 (08:01→22:52)
[2017-12-12] MEDS ORDERED: Furosemide 40 MG TABLET PO SCH (09:00)
--- NOTE | 2017-12-12 09:02 | Nephrology Consult Note ---
Date of Encounter: 12/12/17 Time of Encounter: 09:00 Assessment and Plan (1) CKD (chronic kidney disease) stage 4, GFR 15-29 ml/min Current Visit: No Status: Chronic Known history of CKD stage 4 who is status post right nephrectomy due to kidney cancer in 2010. He is a patient of Dr. Oscar. -Creatinine is 1.91 (baseline is 2-2.2) -GFR 35 -BUN 50 -I/O: 100/700 -he denies NSAID use plan: -This is likely a falsely improved creatinine due to high fluid volume status. Continue Lasix 40 mg IV b.i.d, however do not recommend to increase dosing as creatinine is increasing. -recommend avoid nephrotoxic agents and renally adjust medications -continue to monitor serum creatinine and I&O -patient's stated that he used to be on another diuretic however, has been discontinued by his matrix bath attendant Dr. Haas may be due to low BP. This medi cation may have been Aldactone. Do not start Aldactone as his BP is lower. (2) Anemia in CKD (chronic kidney disease) Current Visit: Yes Status: Acute Anemia of chronic disease in setting of CKD. Hemoglobin 9.1 (at baseline) hematocrit 29.6 MCV 87.6 WNL 11/24/2017: 17% saturation. Transferrin 117, ferritin 349 -There is no obvious active bleeding. No melena or hematochezia Plan: -will order IV iron supplementation with 510 mg Feraheme one time. If he is still here in a week may order another dose. He may consider discussing occasional dosing of this with his matrix bath attendant. -Do not give oral iron supplementation as this will cause constipation for this patient Qualifiers: Qualified Code(s): N18.9 - Chronic kidney disease, unspecified; D63.1 - Anemia in chronic kidney disease (3) Hypokalemia Current Visit: No Status: Acute Hypokalemia potassium 3.2 at admission. Likely secondary to Lasix and lactulose potassium now 4.0 -monitor potassium and supplement as needed (4) Cirrhosis Current Visit: No Status: Chronic Patient has known history of the liver cirrhosis secondary to VORA. Abdominal CT demonstrated cirrhosis and portal hypertension with dilation of main portal vein. Moderate to large ascites and large right pleural effusion. -Management per primary hospitalist team Qualifiers: Hepatic cirrhosis type: unspecified hepatic cirrhosis Ascites presence: with ascites Qualified Code(s): K74.60 - Unspecified cirrhosis of liver (5) Pleural effusion, right Current Visit: Yes Status: Acute Large right pleural effusion status post thoracentesis by interventional radiology with 1.5L removed Abdominal CT demonstrated cirrhosis and portal hypertension with dilation of main portal vein. Moderate to large ascites and large right pleural effusion. -Management per primary team (6) Ascites Current Visit: No Status: Acute Moderate to large ascites and large right pleural effusion demonstrated by abdominal CT. Status post paracentesis with 4L acidic fluid removed. -Management per primary team Qualifiers: Ascites type: other type Qualified Code(s): R18.8 - Other ascites History of Present Illness - Reason for Consult Consult date: 12/11/17 (Volume management) Chronic Kidney Disease Requesting physician: Rizwan Kimble - Chief Complaint Weakness - History of Present Illness Mr. Frye is a 77-year-old male with past medical history of right nephrectomy due to kidney cancer, CABG, atrial fibrillation, diabetes who presented to [facility] due to fatigue and weakness. Nephrology was consulted for volume management. He is a patient of the matrix bath attendant Dr. Haas. Upon my examination of the patient he is a poor historian and very hard of hearing. He reported he came to the hospital because he was feeling weak for the past few days to the point that he was unable to walk. His daughter and reported that the patient has been increasingly weak and has lost about 4 0lbs over the past 2 years. He has decreased oral intake. He denies any fever, chills, chest pain, nausea, vomiting, abdominal pain, change in urination. Patient reports he has been compliant with his medications including lasix. He denied alcohol, drugs, smoking. He has had paracentesis about 8 times over the past 2 years according to his with last one in September and a scheduled one for December. While admitted CT abdomen has demonstrated both large ascites and right sided pleural effusion, portal hypertension, and cirrhosis. He had paracentesis today with 4L fluid removed and thoracentesis with 1.5L fluid removed. Past Med Surg Social Fam HX - Past Medical History Attestation: Yes The following information was validated with the patient. Source: patient Medical history: atrial fibrillation, cancer, CHF, CVA, diabetes, hyperlipidemia, hypertension, myocardial infarction, renal disease, other Additional medical history: thrombocytopenia, renal cancer, stage 4 kindey disease Psychiatric history: no psych history - Past Surgical History Surgical History: coronary bypass (CABG), other, pacemaker Additional surgical history: hernia repair 2017, left nephrectomy - Social History Smoking Status: Former smoker Smokeless Tobacco Status: No Alcohol use: none Drug use: none - Family History Father Living Status: Hx Family Cardiac Disorders: Yes Medications and Allergies Carvedilol [Coreg] 25 mg PO DAILY 12/11/17 [History] Furosemide [Lasix] 40 mg PO DAILY 12/11/17 [History] Gabapentin [Neurontin] 100 mg PO DAILY 12/11/17 [History] Insulin Glargine,Hum.rec.anlog [Lantus Solostar] 10 unit SQ 0700 12/11/17 [History] Isosorbide MONOnitrate (24 HR) [Imdur] 30 mg PO DAILY 12/11/17 [History] Lactulose [Enulose] 10 gm PO TID PRN 12/11/17 [History] Levothyroxine [Synthroid] 88 mcg PO 0630 12/11/17 [History] Omeprazole [PriLOSEC] 20 mg PO DAILY 12/11/17 [History] Potassium Chloride [Klor-Con 10] 20 meq PO BID 12/11/17 [History] Pravastatin Sodium 10 mg PO HS 12/11/17 [History] Allergy/AdvReac Type Severity Reaction Status Date / Time [id number] Reductase AdvReac Muscle Pain Verified 12/11/17 11:28 Inhibitor [Statins] Review of Systems Constitutional: fatigue, weakness, weight loss, no chills, no fever(s), no headache(s) Nose, mouth and throat: abnormal hearing Cardiovascular: no chest pain, no dyspnea on exertion, no edema Respiratory: no cough, no dyspnea, no wheezing Gastrointestinal: no abdominal pain, no nausea, no vomiting Musculoskeletal: muscle weakness, no joint swelling Endocrine: fatigue Exam - Vital Signs Vital signs: Initial Vital Signs Temp Pulse Resp BP Pulse Ox 97.6 F 59 18 120/90 99 12/11/17 06:43 12/11/17 06:43 12/11/17 06:43 12/11/17 06:43 12/11/17 06:43 Vital Signs - Last 8 Hours Temp Pulse Resp BP Pulse Ox 12/12/17 07:00 97.6 F 65 18 107/52 99 12/12/17 04:48 60 12/12/17 02:52 97.8 F 66 20 105/60 99 Intake and Output 12/11/17 12/12/17 12/12/17 23:59 07:59 15:59 Intake Total 100 / 100 Output Total 700 / 700 Balance -700 / -700 100 / 100 Intake: IV Fluids 100 / 100 Zosyn 3.375 GM In 0.9 % Sodium 100 / 100 Chloride (Mini-Bag +) 100 ML @ 25 mls/hr IVPB Q8H ROSSI Rx#: [id number] Output: Urine 700 / 700 Other: Stool Size Small Small Stool Consistency formed loose Stool Color Brown Brown # Voids 1 # Bowel Movements 1 1 Weight 68.9 kg Blood Glucose* 103 83 Patient Weight 12/12/17 23:59 Weight 68.9 kg - General Appearance Exam: Gen.: Vitals noted. No acute distress. AAOx3 HEENT: oropharynx clear, Normocephalic, atraumatic Neck: Supple. No adenopathy. Cardiac: irregular, no murmur, +S1/S2, bilateral 2+ edema Pulmonary: right side rales equal chest expansion Abdomen: soft, nontender, Bowel sounds noted, no guarding MSK: ROM intact, no joint swelling noted Extremities: nontender calf, no cyanosis or clubbing Neuro: A&Ox3, moves all extremities, no focal deficits Psych: Appropriate mood and behavior Results - Lab Results 12/12/17 04:35 12/12/17 04:35 Most recent lab results Calcium 8.3 mg/dL (8.6-10.3) L 12/12/17 04:35 Consult Discharge Plan - Plan Referrals: Rashel Bowman MD [Primary Care Provider] - 12/22/17 10:15 am
[2017-12-12] MEDS: Furosemide 40 MG/4 ML VIAL IVP SCH ×2 (09:21→16:52)
[2017-12-12] MEDS: Lactulose Oral Soln 20 GM/30 ML UDC PO SCH ×3 (09:21→20:34)
[2017-12-12] MEDS: Piperacillin/Tazobactam 3.375 GM in 0.9 % Sodium Chloride Mini Bag 100 ML IVPB SCH ×2 (09:21→16:52)
[2017-12-12] MEDS ORDERED: *HR* OxyCODONE/APAP 5/325 TABLET PO ONE (10:45)
[2017-12-12 10:52] LABS: RBC,Peritoneal Fluid 0.007 M/mcL
--- NOTE | 2017-12-12 10:54 | Internal Med Progress Note ---
Hospitalist Progress Note - Encounter Date of Encounter: 12/12/17 Time of Encounter: 10:52 - Subjective Interval History: Patient seen and examined this morning. No acute overnight events. Hard to hear. Does not offer any complains. Abdomen non tender. No fever, chills n/v/d. Still appears weak and lethargic. Had thorocentesis and paracentesis at bedside this morning. - Exam Vitals: Temp Pulse Resp BP Pulse Ox 97.6 F 65 18 107/52 99 12/12/17 07:00 12/12/17 07:00 12/12/17 07:00 12/12/17 07:00 12/12/17 07:00 Exam: Constitutional: Vitals as noted. No Apparent Distress. Hard to hearing Eyes : Sclera Icteric, conjunctiva clear and pale, no lid lag, PEARLA. ENT : Significantly decreased hearing. Oropharyngeal exam unremarkable. Moist mucus membrane. no cervical lymphadenopathy. no thyromegaly or mass. Respiratory : No accessory muscle use, rhonchi or wheezes. Decreased air entry to Rt wit some rales. Improved than yesterday Cardiovascular : RRR, +S1, +S2. no murmur, gallop, rubs. No chest wall tenderness GI/Abdominal : Soft, Non-tender, Distended improved, normal bowel sounds, no peritoneal signs. no orgenomegaly or mass appreciated. no hernia. Musculoskeletal: no deformity noted. 1+ edema, no cyanosis. warm extremities, pulses palpable and symmetrical in UE/LE. no calf tenderness. Neurological: AO X1, Hard to hear at baseline, CN II-XII grossly intact, following simple commands. Moving all extremities. grossly normal motor and se nsory exam. No asterixis. Skin: ecchymosis and liver stigmata noticed. Pych: Not able to assess. - Assessment and Plan (1) Hepatic encephalopathy Current Visit: Yes Status: Acute (2) Generalized weakness Current Visit: Yes Status: Acute (3) Pleural effusion, right Current Visit: Yes Status: Acute (4) Ascites Current Visit: No Status: Acute (5) DVT prophylaxis Current Visit: No Status: Acute (6) Hypokalemia Current Visit: No Status: Acute (7) CKD (chronic kidney disease) stage 4, GFR 15-29 ml/min Current Visit: No Status: Chronic (8) Cirrhosis Current Visit: No Status: Chronic (9) DM type 2 (diabetes mellitus, type 2) Current Visit: No Status: Chronic (10) Hypothyroid Current Visit: No Status: Chronic (11) Pulmonary hypertension Current Visit: No Status: Chronic (12) Thrombocytopenia Current Visit: No Status: Chronic (13) Anemia in CKD (chronic kidney disease) Current Visit: Yes Status: Acute - Summary of Assessment and Plan Summary of Assessment and Plan: Generalized weakness - Has advanced liver cirrhosis history - Mental status slightly better than yesterday. - Patient's ammonia level is mildly elevated. - Has large pleural effusion on Rt. It is loculated however without any signs of infection to suggest empyema. Has thorocentesis and paracentesis today. f/u CXR - c/w Zosyn and azithromycin for now. f/u Plueral and peritoneal fluid cultures and other tests. Will dc based on the result. Blood culture NGTD. - c/w diurese with Lasix 40 BID and albumin. - c/w lactulose to maintain 2-3 bowel movements a day. We will also start rifaximin. - gastroenterology and nephrology following - Could be related to his pleural effusion. Does not appear to have signs of sbp. Gave dose of albumin given his renal function till results are back. Pleural effusion, right - s/p thorocentesis - Was clear fluid on tap. f/u studies. - c/w empiric antibiotics Zosyn and azithromycin for now. - f/u blood and sputum culture CKD - Patient has stage IV CKD - Currently decompensated cirrhosis with ascites and pleural effusion and pedal edema - Also has history of CHF - c/w diuresing with Lasix 40 BID. Nephrology following. Will hold aldactone for now. Recommendation appreciated. - Strict ins and outs - Avoid nephrotoxins Cirrhosis - MELD score of 18 - Was told before that he is not a candidate for transplant. - Management as above - Gastroenterology consulted. Likely from VORA. Doesn't think patient symptoms are from hepatic encephelopathy. DM type 2 - Blood sugar on the lower end. - Monitor Accu-Cheks before meals at bedtime for now Hypothyroid - Continue home levothyroxine Thrombocytopenia - Most likely from his liver cirrhosis - Monitor for now Anemia in CKD - Patient was receiving Aranesp every 2 weeks from oncologist - Currently appears to be around baseline of 9-10 - Nephro following. DVT prophylaxis - heparin sc Hypokalemia - resolved Palliative care consulted. - Time Spent with Patient Total time spent is greater than 50% in coordination of care (as documented) at patient's floor/unit and/or counseling patient: Internal Medicine: Result - Labs CBC & Chem 7: 12/12/17 04:35 12/12/17 04:35 Labs: Short CBC 12/12/17 Range/Units 04:35 WBC 4.1 L (4.3-11.1) K/mcL Hgb 9.1 L (12.9-16.9) g/dL Hct 29.6 L (37.5-50.1) % Plt Count 68 L (140-400) K/mcL Neutrophils # 2.9 (1.6-8.9) K/mcL BMP 12/12/17 04:35 Sodium 134 L Potassium 4.0 Chloride 108 H Carbon Dioxide 18 L BUN 50 H Creatinine 1.91 H Glucose 86 Calcium 8.3 L Urine 12/11/17 Range/Units 15:21 Urine Color Yellow (Yellow) Urine Clarity Clear (Clear) Urine pH 6.0 (5.0-8.0) pH Units Ur Specific [place] 1.018 (1.010-1.025) Urine Protein Negative (Neg-Trace) mg/dL Urine Glucose (UA) Normal (Normal) mg/dL - ABG Interpretation ABG results: PT/INR, D-dimer PT 15.3 Seconds (9.4-12.1) H 12/11/17 13:43 Consult Discharge Plan - Plan Referrals: Rashel Bowman MD [Primary Care Provider] - 12/22/17 10:15 am (4) Ascites Qualifiers: Ascites type: other type Qualified Code(s): R18.8 - Other ascites (8) Cirrhosis Qualifiers: Hepatic cirrhosis type: unspecified hepatic cirrhosis Ascites presence: with ascites Qualified Code(s): K74.60 - Unspecified cirrhosis of liver; R18.8 - Other ascites (9) DM type 2 (diabetes mellitus, type 2) Qualifiers: Diabetes mellitus custodial insulin use: unspecified ocean transportation intermediary insulin use status Diabetes mellitus complication status: with kidney complications Diabetes mellitus complication detail: with chronic kidney disease Chronic kidney disease stage: stage 4 (severe) Qualified Code(s): E11.22 - Type 2 diabetes mellitus with diabetic chronic kidney disease; N18.4 - Chronic kidney disease, stage 4 (severe) (10) Hypothyroid Qualifiers: Hypothyroidism type: unspecified Qualified Code(s): E03.9 - Hypothyroidism, unspecified (13) Anemia in CKD (chronic kidney disease) Qualifiers: Qualified Code(s): N18.9 - Chronic kidney disease, unspecified; D63.1 - Anemia in chronic kidney disease
--- NOTE | 2017-12-12 11:01 | Gastroenterology Consult Note ---
<AdalEliseo luciano - Last Filed: 12/12/17 12:41> Date of Encounter: 12/12/17 Time of Encounter: 10:56 - Assessment and plan (1) Cirrhosis Status: Chronic Assessment and plan: Patient has history of cirrhosis with unknown etiology. Patient has been seen by Dr. Collado approximately a half ago who thought it was possibly related to VORA however denies this. She states that is related to "anesthesia." Denies history of alcohol abuse, alpha-1 antitrypsin testing, ceruloplasmin testing was negative. Hepatitis panel, KHOI, AMA, anti-smooth muscle antibody testing performed in 2017 was negative. Iron panel do not reveal evidence of hem achromatosis. Alpha-fetoprotein level on 11/24/2017 was 1. Child Garces class B, MELD 16. Patient had ascites on admission, status post paracentesis this morning. Laboratory evaluation of ascitic fluid pending. At this point I do not feel the patient's symptoms are due to hepatic encephalopathy. Ammonia was mildly elevated but patient is alert and oriented 3, does not appear to be confused at this time and is adamant that he has not had any confusion leading up to hospitalization and only reports weakness. Agree with diuresis, consider adding Aldactone. Continue lactulose 10 mg 3 times a day as needed, titrating to 2-3 bowel movements daily. Patient mainly follows with [facility] for his cirrhosis care, will obtain records. thinks the patient had repeat recent upper endoscopy with history of varices. No evidence of variceal bleeding. Qualifiers: Hepatic cirrhosis type: unspecified hepatic cirrhosis Ascites presence: with ascites Qualified Code(s): K74.60 - Unspecified cirrhosis of liver; R18.8 - Other ascites (2) Ascites Status: Acute Assessment and plan: Ascites on admission. Mild diffuse tenderness present currently. Afebrile. SBP is a possibility but felt to be less likely. Currently on antibiotics with Zosyn and azithromycin for pneumonia which would cover SBP. Ascitic fluid studies pending along with culture and Gram stain. Qualifiers: Ascites type: other type Qualified Code(s): R18.8 - Other ascites (3) Pleural effusion, right Status: Acute (4) Pancytopenia Status: Chronic - Time Spent With Patient Total time spent is greater than 50% in coordination of care (as documented) at patient's floor/unit and/or counseling patient: GI History of Present Illness - Data of Consult Patient: known to practice within the last 3 years Consult date: 12/12/17 Requesting Physician: Rizwan Kimble MD - Consult Narrative Reason for consult: Cirrhosis History of present illness: Mr. Frye is a 77 year old male with history of cirrhosis, pancytopenia, CKD 3/4 presents with weakness. Patient is awake, alert, and oriented 3 complaining of pain in his back. He reports diffuse weakness. He reports he is tired and defers most of the rest of his history to his . She states that over the last several months he has had slow progression of diffuse weakness. She states over the last several days this is been acutely worse and prior to arrival patient was not able to get up and around. She states he has never had anything like this before. She is adamant that the patient is NOT confused and has not had any change in his mental status. She reports she has had some mild diffuse abdominal pain. She also states that he currently has some pain in his back due to recent procedure. Denies any recent fever or chills. Colonoscopy: Unknown EGD: Unknown Past Med Surg Social Fam HX - Past Medical History Medical history: atrial fibrillation, cancer, CHF, CVA, diabetes, hyperlipidemia, hypertension, myocardial infarction, renal disease, other Additional medical history: thrombocytopenia, renal cancer, stage 4 kindey disease Psychiatric history: no psych history - Past Surgical History Surgical History: coronary bypass (CABG), other, pacemaker Additional surgical history: hernia repair 2017, left nephrectomy - Social History Smoking Status: Former smoker Smokeless Tobacco Status: No Alcohol use: none Drug use: none - Family History Father Living Status: Hx Family Cardiac Disorders: Yes ROS unobtainable: other (patient declines to participate) - Constitutional Vitals: Temp Pulse Resp BP Pulse Ox 97.6 F 65 18 107/52 99 12/12/17 07:00 12/12/17 07:00 12/12/17 07:00 12/12/17 07:00 12/12/17 07:00 General appearance: Present: A&O X 3, answers questions appropriately Exam: appears uncomfortable - Head Head exam: Present: atraumatic, normal inspection, normocephalic - Respiratory Respiratory exam: Present: decreased breath sounds. Absent: rales, rhonchi, wheezes - Cardiovascular Cardiovascular exam: Present: RRR. Absent: gallop, rubs, systolic murmur - GI/Abdominal GI/Abdominal exam: Present: normal bowel sounds, soft, tenderness (mild, diffuse), no peritoneal signs. Absent: distended, firm, rebound, rigid - Extremities Exam Extremities exam: Absent: pedal edema - Neurological Exam Neurological exam: Present: alert, oriented X3, no focal deficits Results - Labs CBC & Chem 7: 12/12/17 04:35 12/12/17 04:35 Labs: Last Result Calcium 8.3 mg/dL (8.6-10.3) L 12/12/17 04:35 Troponin I 0.03 ng/mL (< 0.04) 12/11/17 07:44 Entire Visit Hgb 9.1 g/dL (12.9-16.9) L 12/12/17 04:35 Hct 29.6 % (37.5-50.1) L 12/12/17 04:35 PT 15.3 Seconds (9.4-12.1) H 12/11/17 13:43 Total Bilirubin 1.0 mg/dL (0.3-1.0) 12/11/17 07:44 AST 9 Units/L (13-39) L 12/11/17 07:44 ALT 3 Units/L (7-52) L 12/11/17 07:44 Ammonia 57 mcmol/L (16-53) H 12/11/17 07:44 - ABG ABG results: PT/INR, D-dimer PT 15.3 Seconds (9.4-12.1) H 12/11/17 13:43 Consult Discharge Plan - Plan Instructions: Pneumonia (DC) Referrals: Rashel Bowman MD [Primary Care Provider] - (Patient is going to rehab no PCP appointment needed) Prescriptions: levoFLOXacin [Levaquin] 750 mg PO Q48H #3 tablet <Bryn Moe - Last Filed: 12/16/17 10:35> - Time Spent With Patient Total time spent is greater than 50% in coordination of care (as documented) at patient's floor/unit and/or counseling patient: GI History of Present Illness - Data of Consult Requesting Physician: Gadiel Barrios MD - Consult Narrative History of present illness: Mr. Frye is a 77 year old male - Constitutional Vitals: Temp Pulse Resp BP Pulse Ox 98.1 F 70 18 99/52 97 12/14/17 11:32 12/14/17 11:32 12/14/17 11:32 12/14/17 11:32 12/14/17 11:32 Results - Labs CBC & Chem 7: 12/14/17 05:20 12/14/17 05:20 Labs: Last Result Calcium 8.5 mg/dL (8.6-10.3) L 12/14/17 05:20 Troponin I 0.03 ng/mL (< 0.04) 12/11/17 07:44 Peritoneal Appearance HAZY (Clear) 12/12/17 08:40 Peritoneal Volume 61.0 mL 12/12/17 08:40 Peritoneal RBC 0.007 M/mcL (0.000-0.002) H 12/12/17 08:40 Periton Tot Nuc Cells 512 TNC/mcL (0-300) H 12/12/17 08:40 Periton Band Neuts Test Not Performed 12/12/17 08:40 Periton Lymphocytes % 44.0 % 12/12/17 08:40 Periton Monocytes % 10.0 % 12/12/17 08:40 Periton Other Cells % 24.0 % 12/12/17 08:40 Peritoneal Tot Protein 3.3 g/dL (No Ref Range) 12/12/17 08:40 Peritoneal Glucose 88 mg/dL (No Ref Range) 12/12/17 08:40 Entire Visit Hgb 8.1 g/dL (12.9-16.9) L 12/14/17 05:20 Hct 27.1 % (37.5-50.1) L 12/14/17 05:20 PT 15.3 Seconds (9.4-12.1) H 12/11/17 13:43 Total Bilirubin 1.0 mg/dL (0.3-1.0) 12/13/17 03:35 AST 8 Units/L (13-39) L 12/13/17 03:35 ALT < 3 Units/L (7-52) L 12/13/17 03:35 Ammonia 57 mcmol/L (16-53) H 12/11/17 07:44 - ABG ABG results: PT/INR, D-dimer PT 15.3 Seconds (9.4-12.1) H 12/11/17 13:43 - Attending Attestation Mr Linden Hong, has cirrhosis secondary to VORA most likely and follows up with [facility] for his care so far. Wants to continue with that arrangement. I examined this patient and my medical decision-making was reviewed with the Resident Physician. I agree with the documented findings, disposition and treatment plan as described except to the extent set forth below.
--- NOTE | 2017-12-12 11:02 | IR Procedure Note ---
Date of procedure: 12/12/17 Consent Obtained: Written consent Timeout: Correct patient and procedure verified, Correct site verified, Time out performed, Skin prep completed Local anesthetic: Lidocaine 1% Indications: Right pleural effusion, ascites Procedure Performed: Right thora, paracentesis Was there an behavioral modification assistant present: No Site/Technique: RLQ access, right chest access Results/Findings: Thora-1150ml, para - 4L out Estimated blood loss (cc): 1 Complications: None; Tolerated procedure well Post Procedure Treatment Plan: Monitoring in pts room Specimen: to lab
[2017-12-12 11:17] LABS: RBC,Pleural Fluid 0.017 M/mcL
[2017-12-12 11:23] LABS: Appearance of Peritoneal Fl HAZY (Clear)
[2017-12-12 11:24] LABS: Appearance of Pleural Fl Hazy (Clear)
[2017-12-12] MEDS ORDERED: Ferumoxytol 510 MG in 0.9 % Sodium Chloride 100 ML IVPB ONE (11:29)
[2017-12-12 11:35] LABS: Total Protein,Peritoneal Fluid 3.3 g/dL (No Ref Range)
[2017-12-12 11:40] LABS: LDH,Pleural Fluid 47 Units/L (No Ref Range); Total Protein,Pleural Fluid < 3.0 g/dL (No Ref Range)
[2017-12-12] MEDS: Albumin 25% 25gram/100mL 25 GM/100 ML IV.SOLN IVPB SCH ×3 (11:55→15:00)
[2017-12-12] MEDS: Azithromycin 250 MG TABLET PO SCH (13:18)
--- NOTE | 2017-12-12 13:36 | Palliative - Consult Note ---
Date of Encounter: 12/12/17 Time of Encounter: 12:40 - Assessment and Plan (1) Debility Current Visit: Yes Status: Acute Assessment and plan: Will order PT/OT to eval and treat. interested in [facility] [place] [facility]. (2) Goals of care, counseling/discussion Current Visit: Yes Status: Acute Assessment and plan: Long discussion with , All, as well as pt daughter at bedside. Second marriage for pt - he has 3 children and pt 2 children - all live out of town, so All is only caregiver. She discussed her physical limitations, and struggled this weekend caring for him. They do state that as of last Tuesday, he was still very functional, and even drove to [place] on Tuesday. She states that he just became extremely weak on Tuesday, but generally is up and around, and although slow, still cares mostly for himself. Patient already has a power of employment attorney in place. Code status has already been established as a DNR/DNI, and this was rediscussed briefly and confirmed. MELD score 18 today. Albumin 3.0 and INR 1.4. They understand his prognosis with liver failure is poor, and ultimately the cirrhosis, or complication r/t cirrhosis will eventually cause him to pass away, however, timeline is unknown. He currently does not meet hospice criteria. Discussed different options for care at home,, as truly needs some support. He also has no DME's at home. Patient has been at [place] [facility] before, and would like to pursue this again if he is found a candidate. Will have PT/OT see. He will at least need home health. Will continue to follow. (3) Pleural effusion, right Current Visit: Yes Status: Acute Assessment and plan: Drained this am for 1.5 L (4) CKD (chronic kidney disease) stage 4, GFR 15-29 ml/min Current Visit: No Status: Chronic Assessment and plan: Patient of Dr. Flowers. Our nephrology group is covering here. (5) Cirrhosis of liver Current Visit: No Status: Chronic Assessment and plan: GI following. He is pt of Dr. De Los Santos in [place] Qualifiers: Hepatic cirrhosis type: unspecified hepatic cirrhosis Ascites presence: with ascites Qualified Code(s): K74.60 - Unspecified cirrhosis of liver (6) Ascites Current Visit: No Status: Acute Assessment and plan: Paracentesis this am - 4L removed. Qualifiers: Ascites type: other type Qualified Code(s): R18.8 - Other ascites Palliative-CN HPI - Data of Consult Requesting Physician: Rizwan Kimble MD Primary Care Provider: Rashel Bowman MD - Consult Narrative History of present illness: Mr. Frye is a 77 year old male CC: Rizwan Kimble MD - Time Spent with Patient Time: Total time spent is greater than 50% in coordination of care (as documented) at patient's floor/unit and/or counseling patient: 25 - 35 minutes Past Med Surg Social Fam HX - Past Medical History Medical history: atrial fibrillation, cancer, CHF, CVA, diabetes, hyperl ipidemia, hypertension, myocardial infarction, renal disease, other Additional medical history: thrombocytopenia, renal cancer, stage 4 kindey disease Psychiatric history: no psych history - Past Surgical History Surgical History: coronary bypass (CABG), other, pacemaker Additional surgical history: hernia repair 2016, left nephrectomy - Social History Smoking Status: Former smoker Smokeless Tobacco Status: No Alcohol use: none Drug use: none - Family History Father Living Status: Hx Family Cardiac Disorders: Yes Medications and Allergies Carvedilol [Coreg] 25 mg PO DAILY 12/11/17 [History] Furosemide [Lasix] 40 mg PO DAILY 12/11/17 [History] Gabapentin [Neurontin] 100 mg PO DAILY 12/11/17 [History] Insulin Glargine,Hum.rec.anlog [Lantus Solostar] 10 unit SQ 0700 12/11/17 [History] Isosorbide MONOnitrate (24 HR) [Imdur] 30 mg PO DAILY 12/11/17 [History] Lactulose [Enulose] 10 gm PO TID PRN 12/11/17 [History] Levothyroxine [Synthroid] 88 mcg PO 0630 12/11/17 [History] Omeprazole [PriLOSEC] 20 mg PO DAILY 12/11/17 [History] Potassium Chloride [Klor-Con 10] 20 meq PO BID 12/11/17 [History] Pravastatin Sodium 10 mg PO HS 12/11/17 [History] Allergy/AdvReac Type Severity Reaction Status Date / Time Lfejnbg-Znz-Uas Reductase AdvReac Muscle Pain Verified 12/11/17 11:28 Inhibitor [Statins] ROS unobtainable: due to mental status (Patient sedated from procedure and pain medication) Palliative Care-Exam - Constitutional Vitals: Temp Pulse Resp BP Pulse Ox 97.5 F L 67 19 100/53 98 12/12/17 11:44 12/12/17 11:44 12/12/17 11:44 12/12/17 11:44 12/12/17 11:44 General appearance: Present: no acute distress, thin - Head Head Exam: Present: normal inspection, normocephalic - Respiratory Respiratory exam: Present: CTAB - Cardiovascular Cardiovascular exam: Present: +S1, +S2 - GI/Abdominal Exam GI/Abdominal exam: Present: distended, normal bowel sounds, soft - Extremities Exam Extremities exam: Present: normal capillary refill, normal inspection - Neurological Exam Neurological exam: Present: alert Additional comments: Very drowsy , Alert and oriented x2. Follows simple commands. GILL - Skin Skin exam: Present: dry, warm Additional comments: Color keshav Internal Medicine - CN: Reslt - Labs CBC & Chem 7: 12/12/17 04:35 12/12/17 04:35 Labs: Short CBC 12/12/17 Range/Units 04:35 WBC 4.1 L (4.3-11.1) K/mcL Hgb 9.1 L (12.9-16.9) g/dL Hct 29.6 L (37.5-50.1) % Plt Count 68 L (140-400) K/mcL Neutrophils # 2.9 (1.6-8.9) K/mcL BMP 12/12/17 04:35 Sodium 134 L Potassium 4.0 Chloride 108 H Carbon Dioxide 18 L BUN 50 H Creatinine 1.91 H Glucose 86 Calcium 8.3 L Urine 12/11/17 Range/Units 15:21 Urine Color Yellow (Yellow) Urine Clarity Clear (Clear) Urine pH 6.0 (5.0-8.0) pH Units Ur Specific [place] 1.018 (1.010-1.025) Urine Protein Negative (Neg-Trace) mg/dL Urine Glucose (UA) Normal (Normal) mg/dL - ABG Interpretation ABG results: PT/INR, D-dimer PT 15.3 Seconds (9.4-12.1) H 12/11/17 13:43 - Impressions Impressions Paracentesis Ultrasound 12/12/17 05:43 IMPRESSION: Successful ultrasound guided right thoracentesis as well as paracentesis. D/ / Tk Conroy MD / Tk Conroy MD Interpreting Provider: Tk Conroy MD Thoracentesis 12/12/17 06:45 IMPRESSION: Successful ultrasound guided right thoracentesis as well as paracentesis. D/ / Tk Conroy MD / Tk Conroy MD Interpreting Provider: Tk Conroy MD Consult Discharge Plan - Plan Referrals: Rashel Bowman MD [Primary Care Provider] - 12/22/17 10:15 am Palliative Quality Palliative Quality: Screen for Code Status: Yes, Screen for Goals of Care: Yes, Screen for Pain: Yes, If Pain Regimen Started, Initiate Bowel Regimen: NA (Lactulose scheduled), Screen for Nausea/Vomitting: Yes Code Status: 12/11/17 15:12 CODE [Resuscitation Status: Active] [RES] Routine Comment: Resuscitation Status: [id number]
[2017-12-13] MEDS: Piperacillin/Tazobactam 3.375 GM in 0.9 % Sodium Chloride Mini Bag 100 ML IVPB SCH ×3 (00:01→16:50)
[2017-12-13 04:13] LABS: Hemoglobin 8.9 g/dL (12.9-16.9); Immature Granulocytes % 0.3 % (0-4)
[2017-12-13 04:16] LABS: Basophils % 0.9 %; Eosinophils # 0.1 K/mcL (0.0-0.6); Eosinophils % 3.6 %; Hematocrit 28.6 % (37.5-50.1); Immature Platelets 1.1 % (1.1-6.1); Lymphocytes # 0.5 K/mcL (0.6-4.6); Lymphocytes % 13.9 %; Mean Corpuscular HGB Conc 31.1 g/dL (31.6-35.5); Mean Corpuscular Hemoglobin 27.7 pg (28.0-33.3); Mean Corpuscular Volume 89.1 fL (83.0-100.0); Mean Platelet Volume 8.5 fL (9.4-12.4); Monocytes # 0.3 K/mcL (0.0-1.3); Monocytes % 9.6 %; Neutrophils # 2.4 K/mcL (1.6-8.9); Red Blood Count 3.21 M/mcL (4.19-5.50); Red Cell Distribution Width 13.6 % (11.5-14.5); Segmented Neutrophils % 71.7 %
[2017-12-13 04:18] LABS: Platelet Count 45 K/mcL (140-400)
[2017-12-13 04:29] LABS: Alanine Aminotransferase < 3 Units/L (7-52); Albumin 3.1 g/dL (3.5-5.7); Albumin/Globulin Ratio 1.3 (1.1-2.2); Alkaline Phosphatase 84 Units/L (34-104); Aspartate Amino Transferase 8 Units/L (13-39); BUN/Creatinine Ratio 23 (6-26); Blood Urea Nitrogen 49 mg/dL (8-23); Calcium 8.2 mg/dL (8.6-10.3); Carbon Dioxide 18 mEq/L (23-29); Chloride 109 mEq/L (98-107); Globulin 2.4 g/dL (2.4-3.5); Glucose 125 mg/dL (70-105); Osmolality,Calculated 300 (280-300); Potassium 3.9 mEq/L (3.5-5.1); Sodium 138 mEq/L (136-145); Total Protein 5.5 g/dL (6.4-8.9); eGFR For Non-African Americans 30 (> 60)
[2017-12-13] MEDS: Insulin LISPRO 300 UNITS/3 ML VIAL SQ SCH ×4 (07:40→20:51)
[2017-12-13] MEDS: Lactulose Oral Soln 20 GM/30 ML UDC PO SCH ×3 (07:44→20:27)
[2017-12-13] MEDS: Furosemide 40 MG/4 ML VIAL IVP SCH (07:45)
--- NOTE | 2017-12-13 09:44 | Nephrology Progress Note ---
Date of Encounter: 12/13/17 Time of Encounter: 09:41 - Assessment and Plan (1) CKD (chronic kidney disease) stage 4, GFR 15-29 ml/min Current Visit: No Status: Chronic Known history of CKD stage IIIb-IV who is status post right nephrectomy due to kidney cancer in 2010. He is a patient of Dr. Oscar. -Creatinine is 2.13, (baseline is 2-2.2) -GFR 30 (35) -BUN 49 -I/O: 620/700 -he denies NSAID use plan: -creatinine has increased and is at baseline, this was expected as he had a large fluid removal from his paracentesis and thoracentesis yesterday and he was also receiving Lasix. -He may continue to receive home dose PO Lasix since he is at baseline for creatinine -recommend avoid nephrotoxic agents and renally adjust medications -continue to monitor serum creatinine and I&O -patient's stated that he used to be on another diuretic however, has been discontinued by his refrigerated company driver Dr. Haas may be due to low BP. This medication may have been Aldactone. Do not start Aldactone as his BP is lower (2) Anemia in CKD (chronic kidney disease) Current Visit: Yes Status: Acute Anemia of chronic disease in setting of CKD. Hemoglobin 8.9 (at baseline) MCV 89.1 11/24/2017: 17% saturation. Transferrin 117, ferritin 349 -There is no obvious active bleeding. No melena or hematochezia Plan: -has received a one-time dose of IV iron supplementation with 510 mg Feraheme. If he is still here in a week may order another dose. He may consider discussing occasional dosing of this with his refrigerated company driver. -Do not give oral iron supplementation as this will cause constipation for this patient since this patient has liver disease requiring lactulose for bowel mov ements to preserve mental status Qualifiers: Qualified Code(s): N18.9 - Chronic kidney disease, unspecified; D63.1 - Anemia in chronic kidney disease (3) Hypokalemia Current Visit: No Status: Acute Hypokalemia potassium 3.2 at admission. 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 Abdominal CT demonstrated cirrhosis and portal hypertension with dilation of main portal vein. Moderate to large ascites and large right pleural effusion. -Management per primary hospitalist team Qualifiers: Hepatic cirrhosis type: unspecified hepatic cirrhosis Ascites presence: with ascites Qualified Code(s): K74.60 - Unspecified cirrhosis of liver; R18.8 - Other ascites Subjective Principal diagnosis: Weakness Interval history: Patient was seen and examined at bedside. He is alert and oriented times 3. He stated that he still feels unimproved from admission in terms of weakness and shortness of breath. He stated that he feels like a fever broke. He had nausea and vomiting overnight. He stated that he is urinating well with no blood noted. Denies abdominal pain, chest pain. Objective - Vital Signs Vital signs: Vital Signs Temp Pulse Resp BP Pulse Ox 12/13/17 07:31 97.5 F L 63 20 102/47 98 12/13/17 04:43 97.9 F 60 18 107/61 95 12/13/17 03:24 97.9 F 67 18 107/61 95 12/12/17 23:29 97.6 F 64 18 99/58 98 12/12/17 21:15 97.6 F 69 18 99/64 98 12/12/17 19:15 97.6 F 66 18 99/64 98 12/12/17 16:46 97.4 F L 60 18 102/46 96 12/12/17 11:44 97.5 F L 67 19 100/53 98 Intake and Output 12/12/17 12/13/17 12/13/17 23:59 07:59 15:59 Intake Total 100 / 100 100 / 100 120 / 120 Output Total 500 / 500 Balance -400 / -400 100 / 100 120 / 120 Intake: IV Fluids 100 / 100 100 / 100 Zosyn 3.375 GM In 0.9 % Sodium 100 / 100 100 / 100 Chloride (Mini-Bag +) 100 ML @ 25 mls/hr IVPB Q8HR [facility] Rx#: [id number] Oral 120 / 120 Output: Urine 500 / 500 Other: Meal Breakfast Percent of Meal Consumed 20% Stool Size Small Small Stool Consistency loose loose soft Stool Color Brown Brown # Bowel Movements 1 1 Weight 65 kg Blood Glucose* 122 142 Patient Weight 12/13/17 23:59 Weight 65 kg - General Appearance Exam: Gen.: Vitals noted. No acute distress. AAOx3 HEENT: oropharynx clear, Normocephalic, atraumatic Neck: Supple. No adenopathy. Cardiac: irregular, no murmur, +S1/S2, bilateral 2+ edema Pulmonary: bilateral rales equal chest expansion, no wheezing or rhonci Abdomen: soft, nontender, Bowel sounds noted, no guarding MSK: ROM intact, no joint swelling noted Extremities: nontender calf, no cyanosis or clubbing Neuro: A&Ox3, moves all extremities, no focal deficits Psych: Appropriate mood and behavior - Lab 12/13/17 03:35 12/13/17 03:35 Most recent lab results Calcium 8.2 mg/dL (8.6-10.3) L 12/13/17 03:35 Consult Discharge Plan - Plan Referrals: Rashel Bowman MD [Primary Care Provider] - (Patient is going to rehab no PCP appointment needed)
--- NOTE | 2017-12-13 11:23 | Gastroenterology Progress Note ---
<Eliseo Au - Last Filed: 12/13/17 12:42> Date of Encounter: 12/13/17 Time of Encounter: 10:03 - Assessment and plan (1) Cirrhosis Status: Chronic Assessment and plan: Patient has history of cirrhosis with unknown etiology, cryptogenic per [facility] records. [facility] records obtained and reveal that they have deferred further cirrhosis workup as it will not currency exchange specialist. He is not a candidate for liver transplant. Child Garces class B, MELD 16. Status post paracentesis yesterday and feels much better. Fluid analysis was not indicative of SBP. Continue diuresis, consider adding Aldactone. Continue lactulose 3 times a day titrated to 3 bowel movements daily. Recent upper endoscopy in May 2017 with no evidence of varices. Qualifiers: Hepatic cirrhosis type: unspecified hepatic cirrhosis Ascites presence: with ascites Qualified Code(s): K74.60 - Unspecified cirrhosis of liver; R18.8 - Other ascites (2) Ascites Status: Acute Assessment and plan: Status post paracentesis, not indicative of SBP as above. Qualifiers: Ascites type: other type Qualified Code(s): R18.8 - Other ascites (3) Pleural effusion, right Status: Acute (4) Pancytopenia Status: Chronic - Time Spent With Patient Total time spent is greater than 50% in coordination of care (as documented) at patient's floor/unit and/or counseling patient: - Subjective Interval history: Patient was seen and examined at bedside. Patient states that he feels about the same today. In my discussions with him he is much more alert and interactive. He is sitting up at bedside. He has no specific complaints other than feeling generally weak. He states he is eating and drinking well. He is taking his lactulose and having regular bowel movements. - Constitutional Vitals: Temp Pulse Resp BP Pulse Ox 97.5 F L 63 20 102/47 98 12/13/17 07:31 12/13/17 07:31 12/13/17 07:31 12/13/17 07:31 12/13/17 07:31 General appearance: Present: A&O X 3, pleasant, no acute distress, answers questions appropriately - Respiratory Respiratory exam: Present: CTAB. Absent: rales, rhonchi, wheezes - Cardiovascular Cardiovascular exam: Present: irregular rhythm. Absent: gallop, rubs, systolic murmur, tachycardia - GI/Abdominal GI/Abdominal exam: Present: normal bowel sounds, soft. Absent: distended, tend erness Results - Labs CBC & Chem 7: 12/13/17 03:35 12/13/17 03:35 Labs: Last Result Calcium 8.2 mg/dL (8.6-10.3) L 12/13/17 03:35 Troponin I 0.03 ng/mL (< 0.04) 12/11/17 07:44 Peritoneal Appearance HAZY (Clear) 12/12/17 08:40 Peritoneal Volume 61.0 mL 12/12/17 08:40 Peritoneal RBC 0.007 M/mcL (0.000-0.002) H 12/12/17 08:40 Periton Tot Nuc Cells 512 TNC/mcL (0-300) H 12/12/17 08:40 Periton Band Neuts Test Not Performed 12/12/17 08:40 Periton Lymphocytes % 44.0 % 12/12/17 08:40 Periton Monocytes % 10.0 % 12/12/17 08:40 Periton Other Cells % 24.0 % 12/12/17 08:40 Peritoneal Tot Protein 3.3 g/dL (No Ref Range) 12/12/17 08:40 Peritoneal Glucose 88 mg/dL (No Ref Range) 12/12/17 08:40 Entire Visit Hgb 8.9 g/dL (12.9-16.9) L 12/13/17 03:35 Hct 28.6 % (37.5-50.1) L 12/13/17 03:35 PT 15.3 Seconds (9.4-12.1) H 12/11/17 13:43 Total Bilirubin 1.0 mg/dL (0.3-1.0) 12/13/17 03:35 AST 8 Units/L (13-39) L 12/13/17 03:35 ALT < 3 Units/L (7-52) L 12/13/17 03:35 Ammonia 57 mcmol/L (16-53) H 12/11/17 07:44 - ABG ABG results: PT/INR, D-dimer PT 15.3 Seconds (9.4-12.1) H 12/11/17 13:43 - Impressions Impressions Paracentesis Ultrasound 12/12/17 05:43 IMPRESSION: Successful ultrasound guided right thoracentesis as well as paracentesis. D/ / Tk Conroy MD / Tk Conroy MD Interpreting Provider: Tk Conroy MD Thoracentesis 12/12/17 06:45 IMPRESSION: Successful ultrasound guided right thoracentesis as well as paracentesis. D/ / Tk Conroy MD / Tk Conroy MD Interpreting Provider: Tk Conroy MD Chest X-Ray 12/12/17 09:53 IMPRESSION: No pneumothorax. Persistent right lung consolidation. D/ / 12/12/2017 17:55:51 Nathanael Nguyen MD / darvin Interpreting Provider: Nathanael Nguyen MD Consult Discharge Plan - Plan Instructions: Pneumonia (DC) Referrals: Rashel Bowman MD [Primary Care Provider] - (Patient is going to rehab no PCP appointment needed) Prescriptions: levoFLOXacin [Levaquin] 750 mg PO Q48H #3 tablet <Abhi,Bryn - Last Filed: 12/16/17 10:05> - Time Spent With Patient Total time spent is greater than 50% in coordination of care (as documented) at patient's floor/unit and/or counseling patient: - Constitutional Vitals: Temp Pulse Resp BP Pulse Ox 98.1 F 70 18 99/52 97 12/14/17 11:32 12/14/17 11:32 12/14/17 11:32 12/14/17 11:32 12/14/17 11:32 Results - Labs CBC & Chem 7: 12/14/17 05:20 12/14/17 05:20 Labs: Last Result Calcium 8.5 mg/dL (8.6-10.3) L 12/14/17 05:20 Troponin I 0.03 ng/mL (< 0.04) 12/11/17 07:44 Peritoneal Appearance HAZY (Clear) 12/12/17 08:40 Peritoneal Volume 61.0 mL 12/12/17 08:40 Peritoneal RBC 0.007 M/mcL (0.000-0.002) H 12/12/17 08:40 Periton Tot Nuc Cells 512 TNC/mcL (0-300) H 12/12/17 08:40 Periton Band Neuts Test Not Performed 12/12/17 08:40 Periton Lymphocytes % 44.0 % 12/12/17 08:40 Periton Monocytes % 10.0 % 12/12/17 08:40 Periton Other Cells % 24.0 % 12/12/17 08:40 Peritoneal Tot Protein 3.3 g/dL (No Ref Range) 12/12/17 08:40 Peritoneal Glucose 88 mg/dL (No Ref Range) 12/12/17 08:40 Entire Visit Hgb 8.1 g/dL (12.9-16.9) L 12/14/17 05:20 Hct 27.1 % (37.5-50.1) L 12/14/17 05:20 PT 15.3 Seconds (9.4-12.1) H 12/11/17 13:43 Total Bilirubin 1.0 mg/dL (0.3-1.0) 12/13/17 03:35 AST 8 Units/L (13-39) L 12/13/17 03:35 ALT < 3 Units/L (7-52) L 12/13/17 03:35 Ammonia 57 mcmol/L (16-53) H 12/11/17 07:44 - ABG ABG results: PT/INR, D-dimer PT 15.3 Seconds (9.4-12.1) H 12/11/17 13:43 - Attending Attestation I examined this patient and my medical decision-making was reviewed with the Resident Physician. I agree with the documented findings, disposition and treatment plan as described except to the extent set forth below.
--- NOTE | 2017-12-13 13:12 | Internal Med Progress Note ---
Hospitalist Progress Note - Encounter Date of Encounter: 12/13/17 Time of Encounter: 09:30 - Subjective Interval History: Significant improvement in his mental status noted. States that his breathing has improved. No worsening abdominal pain, fever/chills, or N/V. - Exam Vitals: Temp Pulse Resp BP Pulse Ox 97.6 F 70 18 99/53 98 12/13/17 11:29 12/13/17 11:29 12/13/17 11:29 12/13/17 11:29 12/13/17 11:29 Exam: General: Alert and oriented, not in acute distress. Cardiovascular:Normal S1 & S2, No JVD. Pulse regular. Lungs: clear to auscultation, no wheezes/rales Abdomen:Mildly distended but soft. Non-tender. No asterixis Neurological:Normal cognition and motor skills. Non-focal - Assessment and Plan (1) Pleural effusion, right Current Visit: Yes Status: Acute Assessment and Plan: s/p thoracentesis yesterday, drained 1.15L LDH 47 transudative effusion, likely related to decompensated cirrhosis. No evidence of empyema follow up on final fluid culture abx as below for pneumonia (2) Ascites Current Visit: No Status: Acute Assessment and Plan: drained 4L yesterday, no evidence of SBP abx as below resume home dose of lasix aldactone on hold due to advanced kidney disease may require PRN paracentesis, to be followed up by [facility] hepatology where he usually follows up (3) Cirrhosis Current Visit: No Status: Chronic Assessment and Plan: GI input appreciated cryptogenic cirrhosis, CTP B, MELD 16 presented with ascites and R pleural effusion s/p drainage continue lasix, aldactone on hold as above continue lactulose and rifaximin follow up outpatient with [facility] hepatology, may require PRN paracentesis palliative input appreciated (4) Pneumonia Current Visit: Yes Status: Acute Assessment and Plan: presented with R pleural effusion s/p thoracentesis, no evidence of empyema continue current abx, will switch to PO levaquin upon discharge (5) CKD (chronic kidney disease) stage 4, GFR 15-29 ml/min Current Visit: No Status: Chronic Assessment and Plan: Patient has stage IV CKD Strict ins and outs Avoid nephrotoxins follow with nephrology, lasix resumed (6) Thrombocytopenia Current Visit: No Status: Chronic Assessment and Plan: related to cirrhosis Platelet 45 today, no evidence of bleeding monitor SCD for DVT prophylaxis DVT Prophylaxis: SCD as above - Time Spent with Patient Total time spent is greater than 50% in coordination of care (as documented) at patient's floor/unit and/or counseling patient: Plan of Care Discussed with: patient Internal Medicine: Result - Labs CBC & Chem 7: 12/13/17 03:35 12/13/17 03:35 Labs: Short CBC 12/13/17 Range/Units 03:35 WBC 3.3 L (4.3-11.1) K/mcL Hgb 8.9 L (12.9-16.9) g/dL Hct 28.6 L (37.5-50.1) % Plt Count 45 L (140-400) K/mcL Neutrophils # 2.4 (1.6-8.9) K/mcL BMP 12/13/17 03:35 Sodium 138 Potassium 3.9 Chloride 109 H Carbon Dioxide 18 L BUN 49 H Creatinine 2.13 H Glucose 125 H Calcium 8.2 L Liver Function 12/13/17 Range/Units 03:35 Total Bilirubin 1.0 (0.3-1.0) mg/dL AST 8 L (13-39) Units/L ALT < 3 L (7-52) Units/L Alkaline Phosphatase 84 (34-104) Units/L Albumin 3.1 L (3.5-5.7) g/dL - ABG Interpretation ABG results: PT/INR, D-dimer PT 15.3 Seconds (9.4-12.1) H 12/11/17 13:43 - Impressions Impressions Chest X-Ray 12/12/17 09:53 IMPRESSION: No pneumothorax. Persistent right lung consolidation. D/ / 12/12/2017 17:55:51 Nathanael Nguyen MD / darvin Interpreting Provider: Nathanael Nguyen MD Consult Discharge Plan - Plan Referrals: Rashel Bowman MD [Primary Care Provider] - (Patient is going to rehab no PCP appointment needed) (2) Ascites Qualifiers: Ascites type: other type Qualified Code(s): R18.8 - Other ascites (3) Cirrhosis Qualifiers: Hepatic cirrhosis type: unspecified hepatic cirrhosis Ascites presence: with ascites Qualified Code(s): K74.60 - Unspecified cirrhosis of liver; R18.8 - Other ascites (4) Pneumonia Qualifiers: Pneumonia type: due to unspecified organism Laterality: right Lung location: unspecified part of lung Qualified Code(s): J18.9 - Pneumonia, unspecified organism
--- NOTE | 2017-12-13 13:34 | Event Note ---
Date of Encounter: 12/13/17 Time of Encounter: 13:15 Patient resting quietly. No complaints. Has been up and participated with PT today. not at bedside. Nephrology/GI notes reviewed. Will continue to follow clinical course. needleworker has been in contact with Darcy morley, and that physician will be reviewing pt record.
[2017-12-13] MEDS: Azithromycin 250 MG TABLET PO SCH (14:35)
[2017-12-13] MEDS ORDERED: Furosemide 40 MG TABLET PO SCH (17:00)
[2017-12-14] MEDS: Piperacillin/Tazobactam 3.375 GM in 0.9 % Sodium Chloride Mini Bag 100 ML IVPB SCH ×2 (01:20→08:58)
[2017-12-14 05:40] LABS: Hemoglobin 8.1 g/dL (12.9-16.9); Mean Platelet Volume 8.8 fL (9.4-12.4)
[2017-12-14 05:42] LABS: Basophils # 0.1 K/mcL (0.0-0.2); Basophils % 1.4 %; Eosinophils # 0.1 K/mcL (0.0-0.6); Eosinophils % 2.7 %; Hematocrit 27.1 % (37.5-50.1); Immature Granulocytes % 0.5 % (0-4); Immature Platelets 1.1 % (1.1-6.1); Lymphocytes % 20.2 %; Mean Corpuscular HGB Conc 29.9 g/dL (31.6-35.5); Mean Corpuscular Volume 90.3 fL (83.0-100.0); Monocytes # 0.4 K/mcL (0.0-1.3); Monocytes % 10.1 %; Neutrophils # 2.4 K/mcL (1.6-8.9); Red Cell Distribution Width 13.7 % (11.5-14.5); Segmented Neutrophils % 65.1 %
[2017-12-14 05:44] LABS: Lymphocytes # 0.8 K/mcL (0.6-4.6); Platelet Count 41 K/mcL (140-400)
[2017-12-14 06:03] LABS: Calcium 8.5 mg/dL (8.6-10.3); Magnesium 2.2 mg/dL (1.6-2.6); Potassium 4.2 mEq/L (3.5-5.1)
[2017-12-14] MEDS: Insulin LISPRO 300 UNITS/3 ML VIAL SQ SCH ×2 (08:42→12:21)
[2017-12-14] MEDS: Lactulose Oral Soln 20 GM/30 ML UDC PO SCH (08:59)
[2017-12-14] MEDS ORDERED: Gabapentin 100 MG CAPSULE PO SCH (09:00)
--- NOTE | 2017-12-14 09:38 | Gastroenterology Progress Note ---
<Eliseo Au - Last Filed: 12/14/17 09:35> Date of Encounter: 12/14/17 Time of Encounter: 09:36 - Assessment and plan (1) Cirrhosis Status: Chronic Assessment and plan: Patient has history of cirrhosis with unknown etiology, cryptogenic per [facility] records. [facility] records obtained and reveal that they have deferred further cirrhosis workup as it will not change control coordinator. He is not a candidate for liver transplant. Child Garces class B, MELD 16. Status post paracentesis yesterday and feels much better. Fluid analysis was not indicative of SBP. Continue diuresis, consider adding Aldactone. Continue lactulose 3 times a day titrated to 3 bowel movements daily. Recent upper endoscopy in May 2017 with no evidence of varices. Patient is stable for discharge from a GI standpoint, outpatient follow-up was offered however patient and family would like to continue to follow-up at [facility]. They report he has a follow-up appointment in the next couple weeks and they are encouraged to keep this appointment. Qualifiers: Hepatic cirrhosis type: unspecified hepatic cirrhosis Ascites presence: with ascites Qualified Code(s): K74.60 - Unspecified cirrhosis of liver; R18.8 - Other ascites (2) Ascites Status: Acute Assessment and plan: Status post paracentesis, not indicative of SBP as above. Qualifiers: Ascites type: other type Qualified Code(s): R18.8 - Other ascites (3) Pleural effusion, right Status: Acute (4) Pancytopenia Status: Chronic - Time Spent With Patient Total time spent is greater than 50% in coordination of care (as documented) at patient's floor/unit and/or counseling patient: - Subjective Interval history: Patient seen and examined at bedside. Patient states that he feels better today. Is alert and oriented with no altered mental status. No specific complaints at this time. Denies nausea, vomiting, change in bowel habits, abdominal pain. - Constitutional Vitals: Temp Pulse Resp BP Pulse Ox 98.0 F 73 18 114/51 99 12/14/17 07:27 12/14/17 07:27 12/14/17 07:27 12/14/17 07:27 12/14/17 07:27 General appearance: Present: A&O X 3, pleasant, no acute distress, answers questions appropriately - Respiratory Respiratory exam: Present: CTAB. Absent: rales, rhonchi, wheezes - Cardiovascular Cardiovascular exam: Present: RRR. Absent: gallop, rubs, systolic murmur - GI/Abdominal GI/Abdominal exam: Present: hypoactive bowel sounds, soft. Absent: distended, tenderness Results - Labs CBC & Chem 7: 12/14/17 05:20 12/14/17 05:20 Labs: Last Result Calcium 8.5 mg/dL (8.6-10.3) L 12/14/17 05:20 Troponin I 0.03 ng/mL (< 0.04) 12/11/17 07:44 Peritoneal Appearance HAZY (Clear) 12/12/17 08:40 Peritoneal Volume 61.0 mL 12/12/17 08:40 Peritoneal RBC 0.007 M/mcL (0.000-0.002) H 12/12/17 08:40 Periton Tot Nuc Cells 512 TNC/mcL (0-300) H 12/12/17 08:40 Periton Band Neuts Test Not Performed 12/12/17 08:40 Periton Lymphocytes % 44.0 % 12/12/17 08:40 Periton Monocytes % 10.0 % 12/12/17 08:40 Periton Other Cells % 24.0 % 12/12/17 08:40 Peritoneal Tot Protein 3.3 g/dL (No Ref Range) 12/12/17 08:40 Peritoneal Glucose 88 mg/dL (No Ref Range) 12/12/17 08:40 Entire Visit Hgb 8.1 g/dL (12.9-16.9) L 12/14/17 05:20 Hct 27.1 % (37.5-50.1) L 12/14/17 05:20 PT 15.3 Seconds (9.4-12.1) H 12/11/17 13:43 Total Bilirubin 1.0 mg/dL (0.3-1.0) 12/13/17 03:35 AST 8 Units/L (13-39) L 12/13/17 03:35 ALT < 3 Units/L (7-52) L 12/13/17 03:35 Ammonia 57 mcmol/L (16-53) H 12/11/17 07:44 - ABG ABG results: PT/INR, D-dimer PT 15.3 Seconds (9.4-12.1) H 12/11/17 13:43 Consult Discharge Plan - Plan Instructions: Pneumonia (DC) Referrals: Rashel Bowman MD [Primary Care Provider] - (Patient is going to rehab no PCP appointment needed) Prescriptions: levoFLOXacin [Levaquin] 750 mg PO Q48H #3 tablet <Opal Moeind - Last Filed: 12/16/17 09:57> - Time Spent With Patient Total time spent is greater than 50% in coordination of care (as documented) at patient's floor/unit and/or counseling patient: - Constitutional Vitals: Temp Pulse Resp BP Pulse Ox 98.1 F 70 18 99/52 97 12/14/17 11:32 12/14/17 11:32 12/14/17 11:32 12/14/17 11:32 12/14/17 11:32 Results - Labs CBC & Chem 7: 12/14/17 05:20 12/14/17 05:20 Labs: Last Result Calcium 8.5 mg/dL (8.6-10.3) L 12/14/17 05:20 Troponin I 0.03 ng/mL (< 0.04) 12/11/17 07:44 Peritoneal Appearance HAZY (Clear) 12/12/17 08:40 Peritoneal Volume 61.0 mL 12/12/17 08:40 Peritoneal RBC 0.007 M/mcL (0.000-0.002) H 12/12/17 08:40 Periton Tot Nuc Cells 512 TNC/mcL (0-300) H 12/12/17 08:40 Periton Band Neuts Test Not Performed 12/12/17 08:40 Periton Lymphocytes % 44.0 % 12/12/17 08:40 Periton Monocytes % 10.0 % 12/12/17 08:40 Periton Other Cells % 24.0 % 12/12/17 08:40 Peritoneal Tot Protein 3.3 g/dL (No Ref Range) 12/12/17 08:40 Peritoneal Glucose 88 mg/dL (No Ref Range) 12/12/17 08:40 Entire Visit Hgb 8.1 g/dL (12.9-16.9) L 12/14/17 05:20 Hct 27.1 % (37.5-50.1) L 12/14/17 05:20 PT 15.3 Seconds (9.4-12.1) H 12/11/17 13:43 Total Bilirubin 1.0 mg/dL (0.3-1.0) 12/13/17 03:35 AST 8 Units/L (13-39) L 12/13/17 03:35 ALT < 3 Units/L (7-52) L 12/13/17 03:35 Ammonia 57 mcmol/L (16-53) H 12/11/17 07:44 - ABG ABG results: PT/INR, D-dimer PT 15.3 Seconds (9.4-12.1) H 12/11/17 13:43 - Attending Attestation I examined this patient and my medical decision-making was reviewed with the Resident Physician. I agree with the documented findings, disposition and treatment plan as described except to the extent set forth below.
--- NOTE | 2017-12-14 10:29 | Discharge Summary ---
- NOTES TO OUTPATIENT PROVIDER Notes to Outpatient Provider: Patient with a history of cryptogenic cirrhosis was admitted for large right-sided pleural effusion and significant amount of ascites. Was also noted to have right lung consolidation compatible with pneumonia. Had both thoracentesis and paracentesis done draining 1.15 L and 4L respectively. No evidence of SBP or empyema on fluid analysis. He will be completing 3 more doses of Levaquin Q48H for pneumonia and his lasix will be held for the next 3 days after which it can be resumed as long as his Cr remains at his baseline. Since he is not a good candidate for aggressive diuresis with lasix and aldactone in view of advanced CKD, he will need to follow up with [facility] for possible scheduled paracentesis. Orders not resulted at time of discharge: Pending orders 12/11/17 15:21 Urinalysis Reflex Cult & Micro [URIN] Stat 12/11/17 16:05 Culture,Sputum with Gram Stain [RM] Routine 12/11/17 16:25 Culture,Blood [BC] Stat 12/12/17 08:35 Culture,Body Fluid [RM] Routine 12/12/17 08:40 Culture,Body Fluid [RM] Routine 12/12/17 09:08 Cytology [PTH] Routine Date of Encounter: 12/14/17 Time of Encounter: 09:20 - Discharge Diagnosis (1) Pleural effusion, right Priority: Primary Status: Acute (2) Ascites Priority: Secondary Status: Acute Qualifiers: Ascites type: other type Qualified Code(s): R18.8 - Other ascites (3) Cirrhosis Priority: Secondary Status: Chronic Qualifiers: Hepatic cirrhosis type: unspecified hepatic cirrhosis Ascites presence: with ascites Qualified Code(s): K74.60 - Unspecified cirrhosis of liver; R18.8 - Other ascites (4) Pneumonia Priority: Secondary Status: Acute Qualifiers: Pneumonia type: due to unspecified organism Laterality: right Lung location: unspecified part of lung Qualified Code(s): J18.9 - Pneumonia, unspecified organism (5) CKD (chronic kidney disease) stage 4, GFR 15-29 ml/min Priority: Secondary Status: Chronic (6) Thrombocytopenia Priority: Secondary Status: Chronic Hospital course: Mr. Frye is a 77 year old male with a history of cryptogenic cirrhosis was admitted for large right-sided pleural effusion and significant amount of ascites. Was also noted to have right lung consolidation compatible with pneumonia. Had both thoracentesis and paracentesis done draining 1.15 L and 4L respectively. No evidence of SBP or empyema on fluid analysis. He will be completing 3 more doses of Levaquin Q48H for pneumonia and his lasix will be held for the next 3 days after which it can be resumed as long as his Cr remains at his baseline. Since he is not a good candidate for aggressive diuresis with lasix and aldactone in view of advanced CKD, he will need to follow up with [facility] for possible scheduled paracentesis. Discharge discussed with: patient, nurse, social work, other (pharmacist) - Time Spent with Patient Total time spent providing and/or coordinating discharge services: Greater than 30 minutes - Discharge Medications Prescriptions: levoFLOXacin [Levaquin] 750 mg PO Q48H #3 tablet Home Medications: Carvedilol [Coreg] 25 mg PO DAILY 12/11/17 [History] Gabapentin [Neurontin] 100 mg PO DAILY 12/11/17 [History] Insulin Glargine,Hum.rec.anlog [Lantus Solostar] 10 unit SQ 0700 12/11/17 [History] Isosorbide MONOnitrate (24 HR) [Imdur] 30 mg PO DAILY 12/11/17 [History] Lactulose [Enulose] 10 gm PO TID PRN 12/11/17 [History] Levothyroxine [Synthroid] 88 mcg PO 0630 12/11/17 [History] Omeprazole [PriLOSEC] 20 mg PO DAILY 12/11/17 [History] Potassium Chloride [Klor-Con 10] 20 meq PO BID 12/11/17 [History] Pravastatin Sodium 10 mg PO HS 12/11/17 [History] levoFLOXacin [Levaquin] 750 mg PO Q48H #3 tablet 12/14/17 [Rx] Allergies/Adverse Reactions: Allergy/AdvReac Type Severity Reaction Status Date / Time Dubpqen-Bxv-Uty Reductase AdvReac Muscle Pain Verified 12/11/17 11:28 Inhibitor [Statins] Date of admission: 12/11/17 14:58 Primary care physician: Rashel Bowman MD Consults: 12/11/17 16:18 Consult to Gastroenterology [CONS] Routine Consulting Provider: Gastroenterology Mirna Reason for Consult: decompensated liver cirrhosis Call Completed: No Consult to Nephrology [CONS] Routine Consulting Provider: Kidney Mirna/REBA/ELISHA/ANUPAM Reason for Consult: volume management Call Completed: No 12/12/17 10:46 Consult to Palliative Care [CONS] Stat Comment: Consulting Provider: Palliative Care Mirna Reason for Consult: End stage liver disease. Call Completed: Yes 12/12/17 13:31 Consult to Physical Therapy [CONS] Routine Comment: Evaluate, develop and implement POC Reason for Consult: eval and treat, interested in [place] [facility] Does patient have active BEDREST order?: No Is patient medically & hemodynamically stable?: Yes 12/12/17 13:32 Consult to Occupational Therapy [CONS] Routine Comment: Evaluate, develop and implement POC Reason for Consult: eval and treat, pt interested in [place] bed Does patient have active BEDREST order?: No Is patient medically & hemodynamically stable?: Yes - Constitutional Vitals: Temp Pulse Resp BP Pulse Ox 98.0 F 73 18 114/51 99 12/14/17 07:27 12/14/17 07:27 12/14/17 07:27 12/14/17 07:27 12/14/17 07:27 General appearance: Present: no acute distress Exam: General: Alert and oriented, not in acute distress. Cardiovascular:Normal S1 & S2, No JVD. Pulse regular. Lungs: clear to auscultation, no wheezes/rales Abdomen:Mildly distended but soft. Non-tender. No asterixis Neurological:Normal cognition and motor skills. Non-focal - Patient Status Disposition: Transfer Hospital [facility] Bed Condition: Fair - Discharge Instructions Instructions: Pneumonia (DC) Follow Up With: Rashel Bowman MD [Primary Care Provider] - (Patient is going to rehab no PCP appointment needed) - Diet and Activity Activity: as per physical therapy Diet: low salt diet
--- NOTE | 2017-12-14 10:34 | Physician Discharge Referral ---
ExtendedCare Referral Info Institutional Level of Care: Intermediate - Diagnosis (1) Pleural effusion, right Priority: Primary Status: Acute (2) Ascites Priority: Secondary Status: Acute (3) Cirrhosis Priority: Secondary Status: Chronic (4) Pneumonia Priority: Secondary Status: Acute (5) CKD (chronic kidney disease) stage 4, GFR 15-29 ml/min Priority: Secondary Status: Chronic (6) Thrombocytopenia Priority: Secondary Status: Chronic - Transfer Medications Prescriptions: levoFLOXacin [Levaquin] 750 mg PO Q48H #3 tablet Home Medications: Carvedilol [Coreg] 25 mg PO DAILY 12/11/17 [History] Gabapentin [Neurontin] 100 mg PO DAILY 12/11/17 [History] Insulin Glargine,Hum.rec.anlog [Lantus Solostar] 10 unit SQ 0700 12/11/17 [History] Isosorbide MONOnitrate (24 HR) [Imdur] 30 mg PO DAILY 12/11/17 [History] Lactulose [Enulose] 10 gm PO TID PRN 12/11/17 [History] Levothyroxine [Synthroid] 88 mcg PO 0630 12/11/17 [History] Omeprazole [PriLOSEC] 20 mg PO DAILY 12/11/17 [History] Potassium Chloride [Klor-Con 10] 20 meq PO BID 12/11/17 [History] Pravastatin Sodium 10 mg PO HS 12/11/17 [History] levoFLOXacin [Levaquin] 750 mg PO Q48H #3 tablet 12/14/17 [Rx] Allergies/Adverse Reactions: Allergy/AdvReac Type Severity Reaction Status Date / Time Ltjcbkc-Ypw-Uud Reductase AdvReac Muscle Pain Verified 12/11/17 11:28 Inhibitor [Statins] - Respiratory Orders Smoking Cessation: Smoking cessation has been advised. For more information, call the [place] Tobacco Quit Line at 1-524-KCYY-NOW. - Rehabiliation Orders Rehab Orders: Evaluation for Physical Therapy, Evaluation for Occupational Therapy - Diet Orders Cardiac CERTIFICATION: I certify that the transfer of the above named patient to an Extended Care Facility is necessary for the continuing treatment of the diagnosis listed. The above information is true and accurate reflection of patient's current condit ion. Confidential - Redisclosure prohibited without a patient's written consent.
[2017-12-14 11:33] VITALS: BP 99/52
--- NOTE | 2017-12-14 13:13 | Nephrology Progress Note ---
Date of Encounter: 12/14/17 Time of Encounter: 13:09 - Assessment and Plan (1) CKD (chronic kidney disease) stage 4, GFR 15-29 ml/min Current Visit: No Status: Chronic Known history of CKD stage IIIb-IV who is status post right nephrectomy due to kidney cancer in 2010. He is a patient of Dr. Oscar. -Creatinine is 2.43, (baseline is 2-2.4) -GFR 26 -BUN 48 -I/O: 620/700 -he denies NSAID use plan: -creatinine is at baseline. Recommend that he follow up with his manager e learning Dr. Oscar -He may continue to receive home dose PO Lasix since he is at baseline for creatinine -recommend avoid nephrotoxic agents and renally adjust medications such as Zosyn -continue to monitor serum creatinine and I&O if he remains in admission -patient's stated that he used to be on another diuretic however, has been discontinued by his manager e learning Dr. Haas may be due to low BP. This medication may have been Aldactone. Do not start Aldactone as his BP is lower (2) Anemia in CKD (chronic kidney disease) Current Visit: Yes Status: Acute Anemia of chronic disease in setting of CKD. Hemoglobin 8.1 (at baseline) MCV 90.3 11/24/2017: 17% saturation. Transferrin 117, ferritin 349 -There is no obvious active bleeding. No melena or hematochezia Plan: -has received a one-time dose of IV iron supplementation with 510 mg Feraheme. If he is still here in a week may order another dose. He may consider discussing occasional dosing of this with his manager e learning. -Do not give oral iron supplementation as this will cause constipation for this patient since this patient has liver disease requiring lactulose for bowel movements to preserve mental status Qualifiers: Qualified Code(s): N18.9 - Chronic kidney disease, unspecified; D63.1 - Ane kristin in chronic kidney disease (3) Hypokalemia Current Visit: No Status: Acute Hypokalemia potassium 3.2 at admission. 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 Abdominal CT demonstrated cirrhosis and portal hypertension with dilation of main portal vein. Moderate to large ascites and large right pleural effusion. -Management per primary hospitalist team Qualifiers: Hepatic cirrhosis type: unspecified hepatic cirrhosis Ascites presence: with ascites Qualified Code(s): K74.60 - Unspecified cirrhosis of liver; R18.8 - Other ascites Subjective Principal diagnosis: Weakness Interval history: Patient was seen and examined at bedside. He is alert and oriented times 3. He reports that he feels much improved as compared to admission. He denies any fever, chills, abdominal pain, nausea, vomiting, difficulty urinating. He has no complaints at this time. Objective - Vital Signs Vital signs: Vital Signs Temp Pulse Resp BP Pulse Ox 12/14/17 11:32 98.1 F 70 18 99/52 97 12/14/17 07:27 98.0 F 73 18 114/51 99 12/14/17 03:50 97.9 F 72 21 104/47 100 12/13/17 23:15 98.4 F 69 20 113/39 100 12/13/17 19:21 97.8 F 70 18 96/78 96 12/13/17 16:04 97.5 F L 65 17 103/51 98 Intake and Output 12/13/17 12/14/17 12/14/17 23:59 07:59 15:59 Intake Total 100 / 100 100 / 100 240 / 240 Output Total 350 / 350 Balance 100 / 100 -250 / -250 240 / 240 Intake: IV Fluids 100 / 100 100 / 100 Zosyn 3.375 GM In 0.9 % Sodium 100 / 100 100 / 100 Chloride (Mini-Bag +) 100 ML @ 25 mls/hr IVPB Q8HR [facility] Rx#: [id number] Oral 240 / 240 Output: Urine 350 / 350 Other: Meal Breakfast Percent of Meal Consumed 75% Stool Size Small Small Stool Consistency loose loose Stool Color Brown Brown # Voids 1 # Bowel Movements 1 1 Weight 63.5 kg Blood Glucose* 194 100 119 Patient Weight 12/14/17 23:59 Weight 63.5 kg - General Appearance Exam: Gen.: Vitals noted. No acute distress. AAOx3 HEENT: oropharynx clear, Normocephalic, atraumatic Neck: Supple. No adenopathy. Cardiac: irregular, no murmur, +S1/S2, bilateral 2+ edema Pulmonary: clear to auscultation bilaterally, equal chest expansion, no wheezing or rhonci Abdomen: soft, nontender, Bowel sounds noted, no guarding MSK: ROM intact, no joint swelling noted Extremities: nontender calf, no cyanosis or clubbing Neuro: A&Ox3, moves all extremities, no focal deficits Psych: Appropriate mood and behavior - Lab 12/14/17 05:20 12/14/17 05:20 Most recent lab results Calcium 8.5 mg/dL (8.6-10.3) L 12/14/17 05:20 Magnesium 2.2 mg/dL (1.6-2.6) 12/14/17 05:20 Consult Discharge Plan - Plan Instructions: Pneumonia (DC) Referrals: Rashel Bowman MD [Primary Care Provider] - (Patient is going to rehab no PCP appointment needed) Prescriptions: levoFLOXacin [Levaquin] 750 mg PO Q48H #3 tablet
--- NOTE | 2017-12-15 07:52 | Electrocardiograph Report ---
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
== END 2017-12-14 14:02 | disposition other institution (70) | DRG 291 ==
LOC: 2NNU 06:31 → EMEROOARM 06:31 → 2NNU 13:01 → SUATTDRO 14:58
PROVIDERS: ADMIT Internal Medicine Nephrology; ATTEND Internal Medicine